=== PATIENT | female | born 1960 | race Caucasian/White ===

== ENCOUNTER 2016-10-03 21:00 | Emergency (ER) | payer BC ==
[~2016-10-03] VITALS: Ht 162.6 cm; Wt 54.4 kg
[~2016-10-03 21:00] MED LIST: ESTR1TAB15 PO; FENT1PAT15 TD; HYDR-2762 PO; HYDR-971 PO; IBUP-1060 PO; LIPA1CAP12 PO; LOSA25TA4 PO; Metoprolol PO; Norco PO; OMEP20TA PO; OMEP40CA5 PO; ONDA4TAB10 SL; ONDA4TAB7 PO; PANT40TA3 PO; Percocet PO; SENN8.6T3 PO; SUMA100T3 PO; TRAM-29 PO
[2016-10-03 21:22] VITALS: BP 122/87
--- NOTE | 2016-10-03 22:02 | PHYS DOC ---
Past Medical History Past Medical History: Anxiety, Depression, GERD, Migraines, Pneumonia Additional Past Medical Histor: aortic ANEURYSM Past Surgical History: Cholecystectomy, Hysterectomy Additional Past Surgical Histo: SHOULDER SX SINUS SX Alcohol Use: None Drug Use: None Adult General Chief Complaint Chief Complaint: HEADACHE HPI HPI Patient is a 56 year old female who presents with headache for 3 days. Patient states that she has had history of migraines, however she started getting a typical symptoms for her headache yesterday. Patient states that she is having pain towards the back of her neck which radiates across the back of her head towards her forehead. Patient states that the pain is in a bandlike pattern across her head. Patient has had associated nausea and mild dizziness. Patient denies any weakness, fever, vomiting, or vision loss. The patient was seen in urgent care and received a dose of Toradol and Phenergan with no improvement in symptoms. The patient rates her pain as 10 out of 10. Review of Systems Review of Systems Constitutional: Denies fever or chills [] Eyes: Denies change in visual acuity, redness, or eye pain [] HENT: Denies nasal congestion or sore throat [] Respiratory: Denies cough or shortness of breath [] Cardiovascular: No additional information not addressed in HPI [] GI: Denies abdominal pain, nausea, vomiting, bloody stools or diarrhea [] : Denies dysuria or hematuria [] Musculoskeletal: Denies back pain or joint pain [] Integument: Denies rash or skin lesions [] Neurologic: Headache, denies focal weakness or sensory changes [] Endocrine: Denies polyuria or polydipsia [] Current Medications Current Medications Current Medications Medications (Trade) Dose Ordered Sig/Chad Start Time Stop Time Status Last Admin Dose Admin Acetaminophen (Tylenol) 650 mg 1X ONCE 10/03/16 22:15 10/03/16 22:16 DC 10/03/16 22:55 650 MG Naproxen (Naprosyn) 500 mg 1X ONCE 10/03/16 22:15 10/03/16 22:16 DC 10/03/16 22:56 500 MG Orphenadrine Citrate (Norflex) 60 mg 1X ONCE 10/03/16 22:15 10/03/16 22:16 DC 10/03/16 22:56 60 MG Allergies Allergies Allergies Coded Allergies Type Severity Reaction Last Updated Verified No Known Drug Allergies 10/01/13 No Physical Exam Physical Exam Constitutional: Alert, afebrile, appears in mild to moderate discomfort. [] HENT: Normocephalic, atraumatic, bilateral external ears normal, oropharynx moist, no oral exudates, nose normal. [] Eyes: PERRLA, EOMI, no photophobia, conjunctiva normal, no discharge. [] Neck: Normal range of motion, bilateral paraspinous muscle tenderness to palpation with palpable spasm, no midline tenderness, supple, no stridor. [] Cardiovascular:Heart rate regular rhythm, no murmur [] Lungs & Thorax: Bilateral breath sounds clear to auscultation [] Abdomen: Bowel sounds normal, soft, no tenderness, no masses, no pulsatile masses. [] Skin: Warm, dry, no erythema, no rash. [] Back: No tenderness, no CVA tenderness. [] Extremities: No tenderness, no cyanosis, no clubbing, ROM intact, no edema. [] Neurologic: Alert and oriented X 3, normal motor function, normal sensory function, no focal deficits noted. [] Current Patient Data Vital Signs Vital Signs Date Time Temp Pulse Resp B/P Pulse Ox O2 Delivery O2 Flow Rate FiO2 10/03/16 21:22 98.1 99 18 122/87 100 Room Air 98.1 EKG EKG Not performed [] Radiology/Procedures Radiology/Procedures Not performed [] Course & Med Decision Making Course & Med Decision Making Pertinent Labs and Imaging studies reviewed. (See chart for details) The patient was given [place], Norflex, and Naprosyn in the emergency department. On reevaluation patient's symptoms have improved at this time. The patient will be discharged on [place], Flexeril, and Naprosyn for continued treatment of tension-type headache. Advised follow-up in 2-3 days a primary doctor and return to emergency department for any worsening symptoms. Patient voiced understanding and in agreement with treatment plan. Dragon Disclaimer Dragon Disclaimer This electronic medical record was generated, in whole or in part, using a voice recognition dictation system. Departure Departure Impression: Primary Impression: Tension type headache Disposition: HOME, SELF-CARE Condition: IMPROVED Referrals: OSVALDO CHOUDHURY MD (PCP) Patient Instructions: Tension Headache Additional Instructions: Follow-up with your primary doctor in 2-3 days. Return to the emergency department for any worsening symptoms. Scripts Cyclobenzaprine Hcl 10 Mg Tablet1 Tab PO QHS PRN MUSCLE SPASMS #10 TAB Prov:AUGUST HACKETT MD 10/03/16 Naproxen (Naprosyn)500 Mg Tablet1 Tab PO BID #20 TAB Ref 0 Prov:AUGUST HACKETT MD 10/03/16 Hydrocodone/Apap 5-325 ([place] 5-325 Tablet)1 Each Tablet1 Tab PO Q4-6HRS PRN PAIN #20 TAB Prov:AUGUST HACKETT MD 10/03/16 Problem Qualifiers Primary Impression: Tension type headache Headache chronicity pattern: acute headache Intractability: not intractable Qualified Code: G44.209 - Tension-type headache, unspecified, not intractable AUGUST HACKETT MD Oct 03, 2016 22:02
[2016-10-03] MEDS ORDERED: ACETAMINOPHEN 325 MG TABLET. PO ONE (22:15)
[2016-10-03] MEDS ORDERED: ORPHENADRINE CITRATE 60 MG/2 ML VIAL. IM ONE (22:15)
[2016-10-03] MEDS ORDERED: NAPROXEN 500 MG TABLET PO ONE (22:15)
[2016-10-03] MEDS ORDERED: CYCL10TA2 PO (23:21)
[2016-10-03] MEDS ORDERED: NAPR500T PO (23:21)
[2016-10-03] MEDS ORDERED: HYDR-971 PO (23:21)
[2016-10-03] MEDS ORDERED: HYDROCODONE/APAP 7.5/325MG TABLET. PO ONE (23:45)
== END 2016-10-03 23:36 | disposition home or self-care (01) ==
LOC: ER 21:00
DX: G44.209 Tension-type headache, unspecified, not intractable (principal); R42 Dizziness and giddiness; G43.909 Migraine, unspecified, not intractable, without status migrainosus; F41.9 Anxiety disorder, unspecified; F32.9 Major depressive disorder, single episode, unspecified; K21.9 Gastro-esophageal reflux disease without esophagitis; Z87.01 Personal history of pneumonia (recurrent); Z90.49 Acquired absence of other specified parts of digestive tract; Z90.710 Acquired absence of both cervix and uterus
CPT/HCPCS: 96372; 99284; J2360

== ENCOUNTER 2016-11-06 15:02 | Emergency (ER) | payer BC ==
[~2016-11-06] VITALS: Ht 162.6 cm; Wt 54.4 kg
[~2016-11-06 15:02] MED LIST changes: +CYCL10TA2 PO; +NAPR500T PO
[2016-11-06] MEDS ORDERED: DIPHENHYDRAMINE 50 MG/ML VIAL IVP ONE (16:15)
[2016-11-06] MEDS ORDERED: IV NORMAL SALINE 1000ML BAG 1,000 ML IV ONE (16:15)
[2016-11-06] MEDS ORDERED: METOCLOPRAMIDE HCL 10 MG/2 ML VIAL. IV ONE (16:15)
[2016-11-06] MEDS ORDERED: KETOROLAC TROMETHAMINE 30 MG/ML SYRINGE. IV ONE (16:15)
[2016-11-06] MEDS ORDERED: BUTA1CAP29 PO (16:55)
--- NOTE | 2016-11-06 16:55 | PHYS DOC ---
Past Medical History Past Medical History: Anxiety, Depression, GERD, Migraines, Pneumonia Additional Past Medical Histor: aortic ANEURYSM Past Surgical History: Cholecystectomy, Hysterectomy Additional Past Surgical Histo: SHOULDER SX SINUS SX Alcohol Use: None Drug Use: None Adult General Chief Complaint Chief Complaint: HEADACHE HPI HPI 56-year-old female with long history of migraine headaches presents with 2 day history of severe headache. She's taken all of her normal prescribed medications for her migraine but this has not helped. She denies any lateralizing neurologic weakness. She has had some nausea but no vomiting. She has had photophobia and phonophobia. She states the pain is very typical of previous migraine headache. She denies any fever or neck pain. [] Review of Systems Review of Systems Constitutional: Denies fever or chills [] Eyes: Denies change in visual acuity, redness, or eye pain [] HENT: Denies nasal congestion or sore throat [] Respiratory: Denies cough or shortness of breath [] Cardiovascular: No additional information not addressed in HPI [] GI: Denies abdominal pain, nausea, vomiting, bloody stools or diarrhea [] : Denies dysuria or hematuria [] Musculoskeletal: Denies back pain or joint pain [] Integument: Denies rash or skin lesions [] Neurologic: Per history of present illness [] Endocrine: Denies polyuria or polydipsia [] Current Medications Current Medications Current Medications Medications (Trade) Dose Ordered Sig/Chad Start Time Stop Time Status Last Admin Dose Admin Diphenhydramine HCl (Benadryl) 25 mg 1X ONCE 11/06/16 16:15 11/06/16 16:16 DC 11/06/16 16:34 25 MG Ketorolac Tromethamine (Toradol) 30 mg 1X ONCE 11/06/16 16:15 11/06/16 16:16 DC 11/06/16 16:35 30 MG Metoclopramide HCl (Reglan) 10 mg 1X ONCE 11/06/16 16:15 11/06/16 16:16 DC 11/06/16 16:32 10 MG Sodium Chloride (Iv Sodium Chloride 0.9% 1000ml Bag) 1,000 ml @ 1,000 mls/hr 1X ONCE 11/06/16 16:15 11/06/16 17:14 11/06/16 16:31 1,000 MLS/HR Allergies Allergies Allergies Coded Allergies Type Severity Reaction Last Updated Verified No Known Drug Allergies 10/01/13 No Physical Exam Physical Exam Constitutional: Well developed, well nourished, no acute distress, non-toxic appearance. [] HENT: Normocephalic, atraumatic, bilateral external ears normal, oropharynx moist, no oral exudates, nose normal. [] Eyes: PERRLA, EOMI, conjunctiva normal, no discharge. [] Neck: Normal range of motion, no tenderness, supple, no stridor. [] Cardiovascular:Heart rate regular rhythm, no murmur [] Lungs & Thorax: Bilateral breath sounds clear to auscultation [] Abdomen: Bowel sounds normal, soft, no tenderness, no masses, no pulsatile masses. [] Skin: Warm, dry, no erythema, no rash. [] Back: No tenderness, no CVA tenderness. [] Extremities: No tenderness, no cyanosis, no clubbing, ROM intact, no edema. [] Neurologic: Alert and oriented X 3, normal motor function, normal sensory function, no focal deficits noted. [] Psychologic: Affect normal, judgement normal, mood normal. [] Current Patient Data Vital Signs Vital Signs Date Time Temp Pulse Resp B/P Pulse Ox O2 Delivery O2 Flow Rate FiO2 11/06/16 15:34 98 80 18 133/88 100 Room Air 98.0 EKG EKG [] Radiology/Procedures Radiology/Procedures [] Course & Med Decision Making Course & Med Decision Making Pertinent Labs and Imaging studies reviewed. (See chart for details) [ED course: Evaluation reveals a 56-year-old female with typical migraine type symptoms. She was given 1 L of normal saline, Reglan 10 mg IV, Benadryl 25 mg IV and Toradol 30 mg IV with complete resolution of her symptoms. Patient states she feels better and wants to go home.] Dragon Disclaimer Dragon Disclaimer This electronic medical record was generated, in whole or in part, using a voice recognition dictation system. Departure Departure Impression: Primary Impression: Migraine headache Disposition: HOME, SELF-CARE Condition: IMPROVED Referrals: OSVALDO CHOUDHURY MD (PCP) Patient Instructions: Migraine Headache Additional Instructions: Thank you for allowing us to participate in your care today. Followup with your primary care physician in 3 days if your symptoms do not improve. Return to the emergency department you have any new or concerning findings. This should be evaluated by the primary care physician and any necessary consulting services for continued management within a few days after discharge. Return to emergency room if you have any new or concerning symptoms including but not limited to fever, chills, nausea, vomiting, intractable pain, any new rashes, chest pain, shortness of air, uncontrolled bleeding, difficulty breathing, and/or vision loss. You may have been prescribed medication that can change in your level of thinking and ability to operate machinery. These medications include hydrocodone and Ativan. Also, Benadryl has been known to do this as well. Be sure to check with your pharmacist and ask if the medications you've prescribed can affect your level of consciousness. I recommend not operating heavy machinery or driving while on medication such as these. Scripts Butalb/Acetaminophen/Caffeine (Fioricet 50-300-40 Mg Capsule)1 Each Capsule1 Each PO PRN Q4HRS PRN MIGRAINE HEADACHE #30 CAP Prov:BERHANE CARLISLE DO 11/06/16 Problem Qualifiers Primary Impression: Migraine headache Migraine type: unspecified Status migrainosus presence: without status migrainosus Intractability: not intractable Qualified Code: G43.909 - Migraine, unspecified, not intractable, without status migrainosus BERHANE CARLISLE DO Nov 06, 2016 16:55
[2016-11-06 17:07] VITALS: BP 125/80
== END 2016-11-06 17:35 | disposition home or self-care (01) ==
LOC: ER 15:02
DX: G43.909 Migraine, unspecified, not intractable, without status migrainosus (principal); F32.9 Major depressive disorder, single episode, unspecified; F41.9 Anxiety disorder, unspecified; K21.9 Gastro-esophageal reflux disease without esophagitis; Z90.710 Acquired absence of both cervix and uterus; Z90.49 Acquired absence of other specified parts of digestive tract
CPT/HCPCS: 96361; 96374; 96375; 99284; J1200; J1885; J2765; J7030

== ENCOUNTER 2016-11-12 02:09 | Emergency (ER) | payer BC ==
[~2016-11-12] VITALS: Ht 162.6 cm; Wt 54.4 kg
[~2016-11-12 02:09] MED LIST changes: +BUTA1CAP29 PO
[2016-11-12 03:17] LABS: BASO # 0.2 x10^3/uL (0.0-0.2); BASO % 2 % (0-3); EOS % 2 % (0-3); HEMATOCRIT 33.6 % (36.0-47.0); HEMOGLOBIN 10.9 g/dL (12.0-15.5); LYMPH # 3.3 x10^3/uL (1.0-4.8); LYMPH % 31 % (24-48); MEAN CORPUSCULAR HEMOGLOBIN 30 pg (25-35); MEAN CORPUSCULAR HGB CONC 32 g/dL (31-37); MEAN CORPUSCULAR VOLUME 93 fL (79-100); MONO % 6 % (0-9); NEUT % 60 % (31-73); PLATELET COUNT 269 x10^3/uL (140-400); RED CELL DISTRIBUTION WIDTH 14.9 % (11.5-14.5); WHITE BLOOD COUNT 10.9 x10^3/uL (4.0-11.0)
[2016-11-12 03:27] LABS: CALCIUM 9.3 mg/dL (8.5-10.1); CREATININE 1.2 mg/dL (0.6-1.0); GFR 46.5; POTASSIUM 3.8 mmol/L (3.5-5.1)
[2016-11-12] MEDS ORDERED: ONDANSETRON PF 4 MG/2 ML VIAL. IV ONE (03:30)
[2016-11-12] MEDS ORDERED: FENTANYL PF 100 MCG/2 ML VIAL. IV ONE ×2 (03:30→05:15)
[2016-11-12 03:33] LABS: ALBUMIN 3.1 g/dL (3.4-5.0); ALK PHOS 95 U/L (46-116); ALT (SGPT) 13 U/L (14-59); AST (SGOT) 14 U/L (15-37); DIRECT BILIRUBIN < 0.1 mg/dL (0.0-0.2); TOTAL BILIRUBIN 0.3 mg/dL (0.2-1.0); TOTAL PROTEIN 7.1 g/dL (6.4-8.2)
[2016-11-12] MEDS ORDERED: IBUP-1060 PO (04:44)
--- NOTE | 2016-11-12 04:44 | PHYS DOC ---
Past Medical History Past Medical History: Anxiety, Depression, GERD, Migraines, Pneumonia Additional Past Medical Histor: aortic ANEURYSM Past Surgical History: Cholecystectomy, Hysterectomy Additional Past Surgical Histo: SHOULDER SX SINUS SX Alcohol Use: None Drug Use: None Adult General Chief Complaint Chief Complaint: SHORTNESS OF BREATH [facility] HPI 56-year-old female who's having ongoing sinus congestion as well as some chest wall tenderness with deep breathing for the last several days. Patient states she's had similar symptoms with a previous episode of pneumonia. She has any fever or chills. She denies any significant cough with her symptoms. She does states she has history of a thoracic aortic aneurysm that is being followed. She denies any history of cardiac disease. She rates her pain a 7 out of 10 localized in a generalized pattern throughout her chest. Review of Systems Review of Systems Constitutional: Denies fever or chills [] Eyes: Denies change in visual acuity, redness, or eye pain [] HENT: Denies nasal congestion or sore throat [] Respiratory: Denies cough or shortness of breath [] Cardiovascular: No additional information not addressed in HPI [] GI: Denies abdominal pain, nausea, vomiting, bloody stools or diarrhea [] : Denies dysuria or hematuria [] Musculoskeletal: Denies back pain or joint pain [] Integument: Denies rash or skin lesions [] Neurologic: Denies headache, focal weakness or sensory changes [] Endocrine: Denies polyuria or polydipsia [] Current Medications Current Medications Current Medications Medications (Trade) Dose Ordered Sig/[facility] Start Time Stop Time Status Last Admin Dose Admin Fentanyl Citrate (Fentanyl 2ml Vial) 50 mcg 1X ONCE 11/12/16 05:15 11/12/16 05:16 DC 11/12/16 05:00 50 MCG Ondansetron HCl (Zofran) 4 mg 1X ONCE 11/12/16 03:30 11/12/16 03:31 DC 11/12/16 03:36 4 MG Allergies Allergies Allergies Coded Allergies Type Severity Reaction Last Updated Verified No Known Drug Allergies 10/01/13 No Physical Exam Physical Exam Constitutional: Well developed, well nourished, no acute distress, non-toxic appearance. [] HENT: Normocephalic, atraumatic, bilateral external ears normal, oropharynx moist, no oral exudates, nose normal. [] Eyes: PERRLA, EOMI, conjunctiva normal, no discharge. [] Neck: Normal range of motion, no tenderness, supple, no stridor. [] Cardiovascular:Heart rate regular rhythm, no murmur [] Lungs & Thorax: Bilateral breath sounds clear to auscultation [] Abdomen: Bowel sounds normal, soft, no tenderness, no masses, no pulsatile masses. [] Skin: Warm, dry, no erythema, no rash. [] Back: No tenderness, no CVA tenderness. [] Extremities: No tenderness, no cyanosis, no clubbing, ROM intact, no edema. [] Neurologic: Alert and oriented X 3, normal motor function, normal sensory function, no focal deficits noted. [] Psychologic: Affect normal, judgement normal, mood normal. [] Current Patient Data Vital Signs Vital Signs Date Time Temp Pulse Resp B/P Pulse Ox O2 Delivery O2 Flow Rate FiO2 11/12/16 05:01 68 16 117/54 100 Room Air 11/12/16 02:45 98.3 98.3 Lab Values Laboratory Tests Test 11/12/16 03:00 White Blood Count 10.9x10^3/uL (4.0-11.0) Red Blood Count 3.60x10^6/uL (3.50-5.40) Hemoglobin 10.9g/dL (12.0-15.5) L Hematocrit 33.6% (36.0-47.0) L Mean Corpuscular Volume 93fL (79-100) Mean Corpuscular Hemoglobin 30pg (25-35) Mean Corpuscular Hemoglobin Concent 32g/dL (31-37) Red Cell Distribution Width 14.9% (11.5-14.5) H Platelet Count 269x10^3/uL (140-400) Neutrophils (%) (Auto) 60% (31-73) Lymphocytes (%) (Auto) 31% (24-48) Monocytes (%) (Auto) 6% (0-9) Eosinophils (%) (Auto) 2% (0-3) Basophils (%) (Auto) 2% (0-3) Neutrophils # (Auto) 6.5x10^3uL (1.8-7.7) Lymphocytes # (Auto) 3.3x10^3/uL (1.0-4.8) Monocytes # (Auto) 0.7x10^3/uL (0.0-1.1) Eosinophils # (Auto) 0.2x10^3/uL (0.0-0.7) Basophils # (Auto) 0.2x10^3/uL (0.0-0.2) D-Dimer (Josseline) 0.33ug/mlFEU (0.00-0.50) Sodium Level 141mmol/L (136-145) Potassium Level 3.8mmol/L (3.5-5.1) Chloride Level 104mmol/L (98-107) Carbon Dioxide Level 26mmol/L (21-32) Anion Gap 11 (6-14) Blood Urea Nitrogen 18mg/dL (7-20) Creatinine 1.2mg/dL (0.6-1.0) H Estimated GFR (Cockcroft-Gault) 46.5 Glucose Level 89mg/dL (70-99) Calcium Level 9.3mg/dL (8.5-10.1) Total Bilirubin 0.3mg/dL (0.2-1.0) Direct Bilirubin < 0.1mg/dL (0.0-0.2) Aspartate Amino Transferase (AST) 14U/L (15-37) L Alanine Aminotransferase (ALT) 13U/L (14-59) L Alkaline Phosphatase 95U/L (46-116) Troponin I Quantitative < 0.017ng/mL (0.000-0.055) Total Protein 7.1g/dL (6.4-8.2) Albumin 3.1g/dL (3.4-5.0) L Lipase 247U/L (73-393) Laboratory Tests 11/12/16 03:00 Laboratory Tests 11/12/16 03:00 EKG EKG EKG is interpreted by me shows a sinus rhythm with a rate of 70 beats per minutes. There are no acute ST findings seen. Intervals are normal. This EKG does not meet STEMI criteria. Radiology/Procedures Radiology/Procedures []EXAM: Chest, single view. HISTORY: Shortness of breath. COMPARISON: 12/31/2015. FINDINGS: A frontal view of the chest is obtained. There is hyperinflation likely due to inspiratory effort or emphysema. There is no consolidation, effusion or pneumothorax. The heart is normal in size. IMPRESSION: No acute pulmonary finding. Course & Med Decision Making Course & Med Decision Making Pertinent Labs and Imaging studies reviewed. (See chart for details) 56-year-old female had a laboratory workup that was unremarkable including an EKG and chest x-ray. D-dimer and troponin were negative. I counseled the patient at length that she is likely having chest congestion with a respiratory illness is likely viral in etiology. A prescription for Motrin was provided. I counseled her to follow closely with her primary care doctor and she was discharged without incident. Dragon Disclaimer Dragon Disclaimer This electronic medical record was generated, in whole or in part, using a voice recognition dictation system. Departure Departure Impression: Primary Impression: Bronchitis Additional Impression: Costochondritis Disposition: HOME, SELF-CARE Admitting Physician: Other Condition: STABLE Referrals: OSVALDO CHOUDHURY MD (PCP) Patient Instructions: Costochondritis, [id number] Additional Instructions: Please take anti-inflammatories for your chest wall pain and continue to drink plenty of fluids. Avoid any strenuous activities. Follow closely with your primary doctor in the next several days for your symptoms. Return to the ER if you develop any worsening of your symptoms. Scripts Ibuprofen 800 Mg [id number] Mg PO PRN Q6HRS PRN INFLAMMATION #20 TAB Prov:JOSE CARMONA DO 11/12/16 Problem Qualifiers JOSE CARMONA DO Nov 12, 2016 04:44
[2016-11-12 05:01] VITALS: BP 117/54
--- NOTE | 2016-11-12 07:10 | EKG ---
[facility] [address] [place] [address] Test Date: 2016-11-12 Test Time: 02:50:51 Pat Name: PHAM SONG Department: Room: Gender: F Return To Vendor: : [id number] Requested By: JOSE CARMONA Order Number: [id number] Reading MD: Oksana Monae Measurements Intervals [place] Rate: 70 P: 56 CA: 172 QRS: 62 QRSD: 80 T: 66 QT: 396 QTc: 430 Interpretive Statements SINUS RHYTHM QRS(T) CONTOUR ABNORMALITY CONSIDER ANTEROSEPTAL MYOCARDIAL DAMAGE POSSIBLY ABNORMAL ECG RI6.01 Compared to ECG 07/09/2016 23:32:03 No significant changes Electronically Signed On 11-12-2016 19:26:28 CDT by Oksana Monae
--- NOTE | 2016-11-12 07:48 | RAD ---
EXAM: Chest, single view. HISTORY: Shortness of breath. COMPARISON: 12/31/2015. FINDINGS: A frontal view of the chest is obtained. There is hyperinflation likely due to inspiratory effort or emphysema. There is no consolidation, effusion or pneumothorax. The heart is normal in size. IMPRESSION: No acute pulmonary finding.
== END 2016-11-12 05:20 | disposition home or self-care (01) ==
LOC: ER 02:09
DX: J40 Bronchitis, not specified as acute or chronic (principal); M94.0 Chondrocostal junction syndrome [Tietze]; I71.2 Thoracic aortic aneurysm, without rupture; F41.9 Anxiety disorder, unspecified; F32.9 Major depressive disorder, single episode, unspecified; K21.9 Gastro-esophageal reflux disease without esophagitis; G43.909 Migraine, unspecified, not intractable, without status migrainosus; Z87.01 Personal history of pneumonia (recurrent)
CPT/HCPCS: 36415; 71010; 80048; 80076; 83690; 84484; 85027; 85379; 93005; 96374; 96375; 96376; 99285; J2405; J3010

== ENCOUNTER 2016-11-29 14:40 | Emergency (ER) | payer BC ==
[~2016-11-29] VITALS: Ht 162.6 cm; Wt 54.4 kg
[2016-11-29] MEDS ORDERED: METOCLOPRAMIDE HCL 10 MG/2 ML VIAL. IV ONE ×2 (15:45→17:00)
[2016-11-29] MEDS ORDERED: DIPHENHYDRAMINE 50 MG/ML VIAL. IV ONE (15:45)
[2016-11-29] MEDS ORDERED: IV NORMAL SALINE 1000ML BAG 1,000 ML IV ONE (15:45)
--- NOTE | 2016-11-29 16:22 | PHYS DOC ---
Past Medical History Past Medical History: Anxiety, Depression, GERD, Migraines, Pneumonia Additional Past Medical Histor: aortic ANEURYSM, migraines Past Surgical History: Cholecystectomy, Hysterectomy Additional Past Surgical Histo: SHOULDER SX SINUS SX Alcohol Use: Rarely Drug Use: None Adult General Chief Complaint Chief Complaint: HEADACHE HPI HPI 56-year-old female presenting to the emergency department today with a headache. She does have a history of migraine headaches and report this headache is similar. She denies it as being sudden in onset. She denies family history of brain aneurysms. She does report a history of aortic aneurysm. She denies a history of roslyn danlos syndrome or any of the inherited vascular diseases. She denies vision changes numbness or weakness. Her headache is moderate radiating down to the jaw intermittent and without alleviating factors. Review of systems is negative for chest pain shortness of breath fevers chills. All other review of systems is negative unless otherwise noted in history of present illness. Review of Systems Review of Systems SEE ABOVE. Current Medications Current Medications Current Medications Medications (Trade) Dose Ordered Sig/Chad Start Time Stop Time Status Last Admin Dose Admin Dexamethasone Sodium Phosphate (Decadron) 10 mg 1X ONCE 11/29/16 17:00 11/29/16 17:01 DC 11/29/16 17:16 10 MG Diphenhydramine HCl (Benadryl) 50 mg 1X ONCE 11/29/16 17:00 11/29/16 17:01 DC 11/29/16 17:16 50 MG Diphenhydramine HCl 50 mg 50 mg 1X ONCE 11/29/16 15:45 11/29/16 15:46 DC 11/29/16 15:59 50 MG Ketorolac Tromethamine (Toradol) 15 mg 1X ONCE 11/29/16 17:00 11/29/16 17:01 DC 11/29/16 17:17 15 MG Metoclopramide HCl (Reglan) 20 mg 1X ONCE 11/29/16 17:00 11/29/16 17:01 DC 11/29/16 17:17 20 MG Sodium Chloride (Iv Sodium Chloride 0.9% 1000ml Bag) 1,000 ml @ 1,000 mls/hr 1X ONCE 11/29/16 15:45 11/29/16 16:44 DC 11/29/16 16:00 1,000 MLS/HR Allergies Allergies Allergies Coded Allergies Type Severity Reaction Last Updated Verified No Known Drug Allergies 10/01/13 No Physical Exam Physical Exam Constitutional: Well developed, well nourished, no acute distress, non-toxic appearance. HENT: Normocephalic, atraumatic, bilateral external ears normal, oropharynx moist, no oral exudates, nose normal. [] Eyes: PERRLA, EOMI, conjunctiva normal, no discharge. [] Neck: Normal range of motion, no tenderness, supple, no stridor. Cardiovascular:Heart rate regular rhythm, no murmur [] Lungs & Thorax: Bilateral breath sounds clear to auscultation [] Abdomen: Bowel sounds normal, soft, no tenderness, no masses, no pulsatile masses. Skin: Warm, dry, no erythema, no rash. [] Back: No tenderness, no CVA tenderness. [] Extremities: No tenderness, no cyanosis, no clubbing, ROM intact, no edema. [] Neurologic: Mental status: Awake oriented and alert x3 Cranial nerves: Extraocular movements intact, eyebrows akosua bilaterally smile symmetric, uvula elevation, shoulder shrug intact, tongue protrusion normal Sensation: equal and normal in all extremities Strength: 5/5 in upper and lower extremities bilaterally Psychologic: Affect normal, judgement normal, mood normal. Current Patient Data Vital Signs Vital Signs Date Time Temp Pulse Resp B/P Pulse Ox O2 Delivery O2 Flow Rate FiO2 11/29/16 16:35 84 16 140/89 99 Room Air 11/29/16 14:48 97.5 97.5 EKG EKG [] Radiology/Procedures Radiology/Procedures [] Course & Med Decision Making Course & Med Decision Making Pertinent Labs and Imaging studies reviewed. (See chart for details) [] 56-year-old female presenting to the emergency department today with headache similar to her previous migraines. Vital signs unremarkable. Physical exam showed a normal neurologic exam. The patient's pain/headache was treated in the emergency department with Reglan and Benadryl, decadron, and IV fluids. On reexamination she reported feeling better. She does exhibit some signs of opioid abuse syndrome. Naming medications, going to multiple emergency departments, I investigated the [place] board of pharmacy records at which the patient has received 39 prescriptions from 33 different. Providers at 8 different pharmacies mostly private pay which is also concerning. At this point , I do not feel comfortable prescribing opioid medications this patient. I feel the patient is more likely to be harmed been helped by these medications. She was subsequent discharged home to follow up with her PCP over the next 2-3 days. Dragon Disclaimer Dragon Disclaimer This electronic medical record was generated, in whole or in part, using a voice recognition dictation system. Departure Departure Impression: Primary Impression: HEADACHE Additional Impressions: Drug-seeking behavior Opioid abuse Opioid abuse, unspecified Disposition: HOME, SELF-CARE Condition: STABLE Referrals: OSVALDO CHOUDHURY MD (PCP) Patient Instructions: General Headache Without Cause Additional Instructions: Thank you for allowing us to participate in your care today. Followup with your primary care physician in 3 days if your symptoms do not improve. If you do not have a primary care provider you can ask for a list of our primary care providers. Return to the emergency department you have any new or concerning findings. This should be evaluated by the primary care physician and any necessary consulting services for continued management within a few days after discharge. Return to emergency room if you have any new or concerning symptoms including but not limited to fever, chills, nausea, vomiting, intractable pain, any new rashes, chest pain, shortness of air, uncontrolled bleeding, difficulty breathing, and/or vision loss. Problem Qualifiers BROWN GAN MD Nov 29, 2016 16:22
[2016-11-29] MEDS ORDERED: DIPHENHYDRAMINE 50 MG/ML VIAL. IVP ONE (17:00)
[2016-11-29] MEDS ORDERED: KETOROLAC 15 MG/ML VIAL. IV ONE (17:00)
[2016-11-29] MEDS ORDERED: DEXAMETHASONE SOD PHOS 20 MG/5 ML VIAL. IV ONE (17:00)
[2016-11-29 17:20] VITALS: BP 135/85
== END 2016-11-29 17:47 | disposition home or self-care (01) ==
LOC: ER 14:40
DX: R51 Headache (principal); G43.909 Migraine, unspecified, not intractable, without status migrainosus; F32.9 Major depressive disorder, single episode, unspecified; F41.9 Anxiety disorder, unspecified; F11.10 Opioid abuse, uncomplicated; Z76.5 Malingerer [conscious simulation]; K21.9 Gastro-esophageal reflux disease without esophagitis
CPT/HCPCS: 96361; 96374; 96375; 96376; 99284; J1100; J1200; J1885; J2765; J7030; 99285-25

== ENCOUNTER 2017-01-09 09:00 | Observation (INO) | payer BC ==
[~2017-01-09] VITALS: Ht 162.6 cm; Wt 52.3 kg
[~2017-01-09 09:00] MED LIST changes: -IOHEXOL 300 MG/ML 100ML VIAL. IV ONE
--- NOTE | 2017-01-09 09:08 | PHYS DOC ---
Past Medical History Past Medical History: Anxiety, Depression, GERD, Migraines, Pneumonia Additional Past Medical Histor: aortic ANEURYSM, migraines Past Surgical History: Cholecystectomy, Hysterectomy Additional Past Surgical Histo: SHOULDER SX SINUS SX Alcohol Use: Rarely Drug Use: None Adult General Chief Complaint Chief Complaint: ABDOMINAL PAIN HPI HPI Patient is a 56 year old female who presents with is a right lower quadrant pain. She states it started closer to her bellybutton and is migrated down the right lower quadrant. She states Advil has been helping it however now nothing is making it better or worse. She did have a hard stool yesterday but otherwise denies any issues with constipation or dysuria. She does have a CT scan of her chest with contrast prior to arrival in the emergency department. She states she has a history of aortic aneurysm that she is getting followed. States she has a history of pancreatitis and allotted only thing that works for her pain. Review of Systems Review of Systems Constitutional: Denies fever or chills [] Eyes: Denies change in visual acuity, redness, or eye pain [] HENT: Denies nasal congestion or sore throat [] Respiratory: Denies cough or shortness of breath [] Cardiovascular: No additional information not addressed in HPI [] GI: Positive for abdominal pain, denies any nausea, vomiting, bloody stools or diarrhea [] : Denies dysuria or hematuria [] Musculoskeletal: Denies back pain or joint pain [] Integument: Denies rash or skin lesions [] Neurologic: Denies headache, focal weakness or sensory changes [] Endocrine: Denies polyuria or polydipsia [] Current Medications Current Medications Current Medications Medications (Trade) Dose Ordered Sig/Chad Start Time Stop Time Status Last Admin Dose Admin Hydromorphone HCl (Dilaudid) 0.5 mg PRN Q15MIN PRN 01/09/17 09:30 01/09/17 12:49 DC 01/09/17 09:29 0.5 MG Info (Do NOT chart on this entry -- for MONITORING) 1 each PRN DAILY PRN 01/09/17 09:45 01/11/17 09:44 Iohexol (Omnipaque 240 Mg/ml) 30 ml 1X ONCE 01/09/17 09:45 01/09/17 09:46 DC 01/09/17 10:44 30 ML Ondansetron HCl (Zofran) 4 mg 1X ONCE 01/09/17 09:30 01/09/17 09:31 DC 01/09/17 09:28 4 MG Sodium Chloride 1,000 ml @ 1,000 mls/hr Q1H 01/09/17 09:30 01/09/17 10:29 DC 01/09/17 09:26 1,000 MLS/HR Allergies Allergies Allergies Coded Allergies Type Severity Reaction Last Updated Verified No Known Drug Allergies 01/09/17 No Physical Exam Physical Exam Constitutional: Well developed, well nourished, no acute distress, non-toxic appearance. [] HENT: Normocephalic, atraumatic, bilateral external ears normal, oropharynx moist, no oral exudates, nose normal. [] Eyes: PERRLA, EOMI, conjunctiva normal, no discharge. [] Neck: Normal range of motion, no tenderness, supple, no stridor. [] Cardiovascular:Heart rate regular rhythm, no murmur [] Lungs & Thorax: Bilateral breath sounds clear to auscultation [] Abdomen: High-pitched bowel sounds, soft, mild tenderness palpation right lower quadrant, no rebound or guarding, no masses, no pulsatile masses. [] Skin: Warm, dry, no erythema, no rash. [] Back: No tenderness, no CVA tenderness. [] Extremities: No tenderness, no cyanosis, no clubbing, ROM intact, no edema. [] Neurologic: Alert and oriented X 3, normal motor function, normal sensory function, no focal deficits noted. [] Psychologic: Affect normal, judgement normal, mood normal. [] Current Patient Data Vital Signs Vital Signs Date Time Temp Pulse Resp B/P (MAP) Pulse Ox O2 Delivery O2 Flow Rate FiO2 01/09/17 10:29 94 20 152/85 (107) 100 Room Air 01/09/17 09:13 97.5 97.5 Lab Values Laboratory Tests Test 01/09/17 09:15 01/09/17 09:18 Urine Collection Type Unknown Urine Color Yellow Urine Clarity Clear Urine pH 5.5 Urine Specific [place] <=1.005 Urine Protein Negative mg/dL (NEG-TRACE) Urine Glucose (UA) Negative mg/dL (NEG) Urine Ketones (Stick) Negative mg/dL (NEG) Urine Blood Trace (NEG) Urine Nitrite Negative (NEG) Urine Bilirubin Negative (NEG) Urine Urobilinogen Dipstick 0.2 mg/dL (0.2 mg/dL) Urine Leukocyte Esterase Negative (NEG) Urine RBC Rare /HPF (0-2) Urine WBC 0 /HPF (0-4) Urine Squamous Epithelial Cells Many /LPF Urine Bacteria 0 /HPF (0-FEW) Urine Hyaline Casts Moderate /HPF Urine Mucus Mod /LPF Urine Opiates Screen Pos (NEG) Urine Methadone Screen Neg (NEG) Urine Barbiturates Neg (NEG) Urine Phencyclidine Screen Neg (NEG) Urine Amphetamine/Methamphetamine Neg (NEG) Urine Benzodiazepines Screen Neg (NEG) Urine Cocaine Screen Neg (NEG) Urine Cannabinoids Screen Neg (NEG) Urine Ethyl Alcohol Neg (NEG) White Blood Count 8.1 x10^3/uL (4.0-11.0) Red Blood Count 4.25 x10^6/uL (3.50-5.40) Hemoglobin 12.8 g/dL (12.0-15.5) Hematocrit 38.3 % (36.0-47.0) Mean Corpuscular Volume 90 fL (79-100) Mean Corpuscular Hemoglobin 30 pg (25-35) Mean Corpuscular Hemoglobin Concent 34 g/dL (31-37) Red Cell Distribution Width 13.8 % (11.5-14.5) Platelet Count 336 x10^3/uL (140-400) Neutrophils (%) (Auto) 62 % (31-73) Lymphocytes (%) (Auto) 28 % (24-48) Monocytes (%) (Auto) 8 % (0-9) Eosinophils (%) (Auto) 3 % (0-3) Basophils (%) (Auto) 1 % (0-3) Neutrophils # (Auto) 5.0 x10^3uL (1.8-7.7) Lymphocytes # (Auto) 2.2 x10^3/uL (1.0-4.8) Monocytes # (Auto) 0.6 x10^3/uL (0.0-1.1) Eosinophils # (Auto) 0.2 x10^3/uL (0.0-0.7) Basophils # (Auto) 0.1 x10^3/uL (0.0-0.2) Prothrombin Time 13.4 SEC (11.7-14.0) Prothrombin Time INR 1.1 (0.8-1.1) PTT 29 SEC (24-38) Sodium Level 135 mmol/L (136-145) L Potassium Level 3.8 mmol/L (3.5-5.1) Chloride Level 101 mmol/L (98-107) Carbon Dioxide Level 22 mmol/L (21-32) Anion Gap 12 (6-14) Blood Urea Nitrogen 20 mg/dL (7-20) Creatinine 1.4 mg/dL (0.6-1.0) H Estimated GFR (Cockcroft-Gault) 38.9 Glucose Level 121 mg/dL (70-99) H Calcium Level 9.1 mg/dL (8.5-10.1) Total Bilirubin 0.3 mg/dL (0.2-1.0) Direct Bilirubin 0.1 mg/dL (0.0-0.2) Aspartate Amino Transferase (AST) 14 U/L (15-37) L Alanine Aminotransferase (ALT) 18 U/L (14-59) Alkaline Phosphatase 107 U/L (46-116) Creatine Kinase 30 U/L (26-192) Creatine Kinase MB (Mass) < 0.5 ng/mL (0.0-3.6) Creatine Kinase MB Relative Index % (0-4) Total Protein 7.6 g/dL (6.4-8.2) Albumin 3.3 g/dL (3.4-5.0) L Lipase 820 U/L (73-393) H Laboratory Tests 01/09/17 09:18 Laboratory Tests 01/09/17 09:18 EKG EKG [] Radiology/Procedures Radiology/Procedures [facility] [address] [place] [address] IMAGING REPORT Signed PATIENT: PHAM SONG ACCOUNT: [id number] : 1960 LOCATION: ER AGE: 56 SEX: F EXAM STATUS: REG ER ORD. PHYSICIAN: YAS MALLOY MD REASON: rlq pain PROCEDURE: CT ABD PEL W/ORAL CONTRST ONLY Indication right lower quadrant abdominal pain Axial images through the abdomen and pelvis were obtained. Oral contrast was administered. IV contrast was not. Note is made that the patient had a CT examination of the chest approximately 2 hours prior to this examination. The lung bases are clear. The liver and spleen appear unremarkable. Clips are noted in the gallbladder fossa. Residual contrast from the prior CT examination of the chest is noted in the kidneys, ureters and bladder. No significant renal anomalies are seen. There are probable subcentimeter cysts associated with the left kidney. The ureters appear unremarkable and the urinary bladder appears grossly normal. No adrenal pathology is seen and the pancreas appears unremarkable. The appendix is not definitely seen in the right lower quadrant but no secondary signs to suggest appendicitis are seen. Diverticular disease is noted associated with the large bowel predominantly in the sigmoid colon. Active inflammation is not seen. There are degenerative changes in the lumbar spine. There is slight anterolisthesis of L5 relative to S1. IMPRESSION: No acute finding seen in the abdomen or pelvis DICTATED and SIGNED BY: LINNETTE BLAKE MD DATE: 01/09/17 1105 CC: YAS MALLOY MD; INGRIS FAYE ~ Impressions: Abdominal pain Course & Med Decision Making Course & Med Decision Making Pertinent Labs and Imaging studies reviewed. (See chart for details) CT scan abdomen pelvis with by mouth contrast did not show any acute abnormalities. Her lipase is elevated. We'll admit for abdominal pain. Patient is in stable condition this time be admitted to Dr. Yeboah with interim orders being written. Dragon Disclaimer Dragon Disclaimer This electronic medical record was generated, in whole or in part, using a voice recognition dictation system. Departure Departure Impression: Primary Impression: Abdominal pain Disposition: ADMITTED INPATIENT Admitting Physician: Vilma Yeboah Condition: STABLE Referrals: INGRIS FAYE (PCP) Problem Qualifiers Primary Impression: Abdominal pain Abdominal location: generalized Qualified Codes: R10.84 - Generalized abdominal pain AYS MALLOY MD January 09, 2017 09:08
[2017-01-09] MEDS ORDERED: HYDROmorphone 2 MG/ML VIAL IV/SQ PRN (09:30)
[2017-01-09] MEDS ORDERED: IV NORMAL SALINE 1000ML BAG 1,000 ML IV SCH (09:30)
[2017-01-09] MEDS ORDERED: ONDANSETRON PF 4 MG/2 ML VIAL. IV ONE (09:30)
[2017-01-09 09:34] LABS: BASO # 0.1 x10^3/uL (0.0-0.2); BASO % 1 % (0-3); EOS % 3 % (0-3); HEMATOCRIT 38.3 % (36.0-47.0); HEMOGLOBIN 12.8 g/dL (12.0-15.5); LYMPH # 2.2 x10^3/uL (1.0-4.8); LYMPH % 28 % (24-48); MEAN CORPUSCULAR HEMOGLOBIN 30 pg (25-35); MEAN CORPUSCULAR HGB CONC 34 g/dL (31-37); MEAN CORPUSCULAR VOLUME 90 fL (79-100); MONO % 8 % (0-9); NEUT % 62 % (31-73); PLATELET COUNT 336 x10^3/uL (140-400); RED BLOOD COUNT 4.25 x10^6/uL (3.50-5.40); RED CELL DISTRIBUTION WIDTH 13.8 % (11.5-14.5); WHITE BLOOD COUNT 8.1 x10^3/uL (4.0-11.0)
[2017-01-09 09:45] LABS: INR 1.1 (0.8-1.1); PROTHROMBIN TIME PATIENT 13.4 SEC (11.7-14.0)
[2017-01-09] MEDS ORDERED: IOHEXOL 240 MG/ML 50ML VIAL. PO ONE (09:45)
[2017-01-09] MEDS ORDERED: CONTRAST GIVEN MC PRN (09:45)
[2017-01-09 09:50] LABS: CALCIUM 9.1 mg/dL (8.5-10.1); CREATININE 1.4 mg/dL (0.6-1.0); GFR 38.9; POTASSIUM 3.8 mmol/L (3.5-5.1)
[2017-01-09 09:54] LABS: ALBUMIN 3.3 g/dL (3.4-5.0); DIRECT BILIRUBIN 0.1 mg/dL (0.0-0.2); TOTAL BILIRUBIN 0.3 mg/dL (0.2-1.0); TOTAL PROTEIN 7.6 g/dL (6.4-8.2)
[2017-01-09 09:57] LABS: CKMB MASS < 0.5 ng/mL (0.0-3.6); CREATINE KINASE 30 U/L (26-192)
--- NOTE | 2017-01-09 10:05 | ACF ---
Admission Forms Criteria ABDOMINAL PAIN Clinical Indications for Admission to Inpatient Care (Place 'X' for any and all applicable criteria): Admission is indicated for ANY ONE of the following(1)(2)(3)(4)(5): [X]I. Inpatient admission required rather than observation care (Also use Abdominal Pain: Observation Care, as appropriate) because of ANY ONE of the following: [ ]a) Severe pain requiring acute inpatient management [X]b) Identification of etiology/finding that requires inpatient care (eg, aortic dissection, free air) [ ]c) Absent bowel sounds with complete ileus(6) [ ]d) Suspected toxic megacolon [ ]e) Severe electrolyte abnormalities requiring inpatient care [ ]f) High fever or infection requiring inpatient admission as indicated by ANY ONE of following(7)(8): [ ] i) Appropriate outpatient or observational care antimicrobial treatment unavailable, not effective, or not feasible [ ] ii) Documented bacteremia [ ] iii) Temperature > 104.9 degrees F (oral) [ ] iv) T >103.1 F (oral) or < 96.8 F(rectal) that does not respond to all emergency treatment measures [ ]g) Signs of intestinal obstruction [B] [ ]h) Hemodynamic instability [ ]i) IV fluid to replace significant ongoing losses (greater than 3 L/m2 per day) (12)(13) [ ]j) Percutaneous or open drainage (eg, abscess, biliary tract ) procedures [ ]k) Parenteral nutrition regimen that must be implemented on inpatient basis [ ]l) Other condition,treatment or monitoring requiring inpatient admission. [ ]II. Peritoneal signs present [ ]III. Surgery needed that cannot be performed on an ambulatory basis. [ ]IV. Evaluation requires patient to not eat or drink for extended period ( eg, more than 24 hours). [ ]V. Contraindications and/or Inappropriate clinical situations for Observational Care in patients with abdominal pain, when ANY ONE of the following is required: [ ]a) Thorough evaluation is required to prevent catastrophic events due to delays in diagnosing (e.g.Mesenteric ischemia) 1,3 [ ]b) Patient with severe pathology or with chronic symptoms unlikely to improve in the ED stay (3) [ ]. General contraindications and/or Inappropriate clinical situations for Observational Care in patients with abdominal pain, when ANY ONE of the following is required: [ ]a) Prediction of prolongation of LOS based on ANY ONE of the following may be considered as a contraindication for observational care 2, 3, 4, 5, 6, 7, 8, 9, 10, 11 [ ]i) Age > 65 yrs. [ ]ii) Patient arriving by ambulance [ ]iii) Patient with high acuity [ ]iv) Patient requiring vital sign monitoring [ ]v) Patient on IV medication [ ]b) Systolic blood pressures 180mmHg 3,12 [ ]c) Patient with altered mental status including delirium and other alteration of consciousness, (3) [ ]d) Patient whose discharge disposition will be to a senior living home or rehabilitation home should not be managed in Emergency Department Observation Unit. CMS rule requires 3 days hospital stay before such placement.3,13 [ ]e) Patient with failure to thrive due to broad array of etiologies 3,16,17 [ ]f) Inability to ambulate 3,14 Extended stay beyond goal length of stay may be needed for(2)(3): [ ]a) Persistent abdominal pain with suspected intra-abdominal process [ ]b) Diagnosed condition requiring continued stay (e.g., pancreatitis, complicated diverticulitis) [ ]c) Surgery (e.g., colectomy) The original [facility] content created by [employer] has been revised. The portions of the content which have been revised are identified through the use of italic text or in bold, and [facility] has neither reviewed nor approved the modified material.All other unmodified content is copyright [facility]. Please see references footnoted in the original [facility] edition 2016 Admission Criteria Met?: Yes FARNAZ MACDONALD January 09, 2017 10:05
[2017-01-09 10:18] LABS: BILIRUBIN,URINE NEGATIVE (NEG); GLUCOSE,URINE NEGATIVE (NEG); NITRITE,URINE NEGATIVE (NEG); PH,URINE 5.5; PROTEIN,URINE NEGATIVE (NEG-TRACE); RBC,URINE RARE /HPF (0-2); UROBILINOGEN,URINE 0.2 mg/dL (0.2 mg/dL); WBC,URINE 0 /HPF (0-4)
[2017-01-09 10:19] LABS: BACTERIA,URINE 0 /HPF (0-FEW); SQUAMOUS EPITHELIAL CELL,UR MANY /LPF
[2017-01-09 10:25] LABS: BARBITURATES NEG (NEG); BENZODIAZEPINES NEG (NEG); CANNABINOIDS NEG (NEG); COCAINE NEG (NEG); METHADONE NEG (NEG); OPIATES POS (NEG); PHENCYCLIDINE NEG (NEG)
--- NOTE | 2017-01-09 11:18 | RAD ---
Indication right lower quadrant abdominal pain Axial images through the abdomen and pelvis were obtained. Oral contrast was administered. IV contrast was not. Note is made that the patient had a CT examination of the chest approximately 2 hours prior to this examination. The lung bases are clear. The liver and spleen appear unremarkable. Clips are noted in the gallbladder fossa. Residual contrast from the prior CT examination of the chest is noted in the kidneys, ureters and bladder. No significant renal anomalies are seen. There are probable subcentimeter cysts associated with the left kidney. The ureters appear unremarkable and the urinary bladder appears grossly normal. No adrenal pathology is seen and the pancreas appears unremarkable. The appendix is not definitely seen in the right lower quadrant but no secondary signs to suggest appendicitis are seen. Diverticular disease is noted associated with the large bowel predominantly in the sigmoid colon. Active inflammation is not seen. There are degenerative changes in the lumbar spine. There is slight anterolisthesis of L5 relative to S1. IMPRESSION: No acute finding seen in the abdomen or pelvis
[2017-01-09] MEDS ORDERED: ONDANSETRON PF 4 MG/2 ML VIAL. IV PRN ×2 (12:15→12:44)
[2017-01-09] MEDS ORDERED: MORPHINE SULFATE 4 MG/ML DISP.SYRIN. IV PRN (12:15)
--- NOTE | 2017-01-09 12:44 | PDOC1 ---
History and Physical Date of Admission Date of Admission DATE: 01/09/17 TIME: 12:38 Identification/Chief Complaint Chief Complaint abdominal pain Problems: Source Source: Caregiver, Chart review, Patient History of Present Illness History of Present Illness 56 y.o female with hx aneurysm maintained on Beta [place] but admits not taking it, admitted for pancreatitis,. Acute onset abd pain, started during , claimed nausea but no emesis, no change in BM, She actually points to her R groin area and now moving to her RLQ area, some radiation to the back, Relieved by IV dilaudid ( requests the same drug upstairs), down to a 5./10,. Hx pancreatitis in the past, claims only social drinker, non smoker and no recreational drug use,. S/.p cholecystectomy,. Looking at old admits under PCPdr. Kate, loves her narcs. Fired by PCP bec she forged a narcotic script. Seen at ER, belly soft, looks comfortable, VS ok, lipase 820. CT abd/pelvis is neg, Past Medical History Cardiovascular: HTN, Other Pulmonary: Asthma CENTRAL NERVOUS SYSTEM: Migraine GI: Other Psych: Anxiety, Depression Musculoskeletal: Osteoarthritis, Other Renal/: Other Past Surgical History Past Surgical History: Breast Biopsy, Cholecystectomy, Tubal Ligation, Hysterectomy Family History Family History: Cancer, Coronary Artery Disease, Hypertension Social History Smoke: No ALCOHOL: social Drugs: None Current Problem List Problem List Problems Medical Problems: (1) Abdominal pain Status: Acute Problems: Current Medications Current Medications Current Medications Hydromorphone HCl (Dilaudid) 0.5 mg PRN Q15MIN PRN IV/SQ PAIN GREATER THAN 3/ 10 Last administered on 01/09/17 09:29; Start 01/09/17 at 09:30; Stop 01/10/17 at 09:29 Sodium Chloride 1,000 ml @ 1,000 mls/hr Q1H IV Last administered on 01/09/17 09:26; Start 01/09/17 at 09:30; Stop 01/09/17 at 10:29; Status DC Ondansetron HCl (Zofran) 4 mg 1X ONCE IV Last administered on 01/09/17 09:28 ; Start 01/09/17 at 09:30; Stop 01/09/17 at 09:31; Status DC Iohexol (Omnipaque 240 Mg/ml) 30 ml 1X ONCE PO Last administered on 01/09/17t 10:44; Start 01/09/17 at 09:45; Stop 01/09/17 at 09:46; Status DC Info (Do NOT chart on this entry -- for MONITORING) 1 each PRN DAILY PRN MC SEE COMMENTS; Start 01/09/17 at 09:45; Stop 01/11/17 at 09:44 Ondansetron HCl (Zofran) 4 mg PRN Q8HRS PRN IV NAUSEA/VOMITING; Start 01/09/17 at 12:15; Stop 01/10/17 at 12:14 Morphine Sulfate 4 mg PRN Q4HRS PRN IV PAIN; Start 01/09/17 at 12:15 Active Scripts Active Ibuprofen 800 Mg Tablet 800 Mg PO PRN Q6HRS PRN Fioricet 50-300-40 Mg Capsule (Butalb/Acetaminophen/Caffeine) 1 Each Capsule 1 Each PO PRN Q4HRS PRN Cyclobenzaprine Hcl 10 Mg Tablet 1 Tab PO QHS PRN Naprosyn (Naproxen) 500 Mg Tablet 1 Tab PO BID [place] 5-325 Tablet (Acetaminophen/Hydrocodone Bitart) 1 Each Tablet 1 Tab PO Q4- 6HRS PRN Zofran (Ondansetron Hcl) 4 Mg Tablet 4 Mg PO BID PRN [place] 5-325 Tablet (Acetaminophen/Hydrocodone Bitart) 1 Each Tablet 1 Tab PO PRN Q6HRS PRN [place] 5-325 Tablet (Acetaminophen/Hydrocodone Bitart) 1 Each Tablet 1 Tab PO PRN Q6HRS PRN Zofran Odt (Ondansetron) 4 Mg Tab.rapdis 1 Tab SL Q8HRS PRN Hydrocodone-Apap 7.5-325 (Hydrocodone Bit/Acetaminophen) 1 Each Tablet 1 Tab PO PRN Q6HRS PRN Senna (Sennosides) 8.6 Mg Tablet 8.6 Mg PO PRN BID PRN 30 Days Valentinap 10,000 Units Capsule (Lipase/Protease/Amylase) 1 Each Capsule. 2 Cap PO TIDWMEALS 30 Days Reported Ibuprofen 800 Mg Tablet 800 Mg PO PRN Q6HRS PRN Estradiol 1 Mg Tablet 1 Tab PO DAILY [Metoprolol] 25 Mg PO BID Imitrex (Sumatriptan Succinate) 100 Mg Tablet 100 Mg PO PRN BID PRN Omeprazole 40 Mg Capsule.dr 1 Cap PO BID Allergies Allergies: Coded Allergies: No Known Drug Allergies (Unverified , 01/09/17) ROS General: No: Chills, Night Sweats, Fatigue, Malaise, Appetite, Other PSYCHOLOGICAL ROS: No: Anxiety, Behavioral Disorder, Concentration difficultie , Decreased libido, Depression, Disorientation, Hallucinations, Hostility, Irritablity, Memory difficulties, Mood Swings, Obsessive thoughts, Physical abuse, Sexual abuse, Sleep disturbances, Suicidal ideation, Other Eyes: No Blurry vision, No Decreased vision, No Double vision, No Dry eyes, No Excessive tearing, No Eye Pain, No Itchy Eyes, No Loss of vision, No Photophobia , No Scotomata, No Uses contacts, No Uses glasses, No Other HEENT: No: Heacaches, Visual Changes, Hearing change, Nasal congestion, Nasal discharge, Oral lesions, Sinus pain, Sore Throat, Epistaxis, Sneezing, Snoring, Tinnitus, Vertigo, Vocal changes, Other ALLERGY AND IMMUNOLOGY: No: Hives, Insect Bite Sensitivity, Itchy/Watery Eyes, Nasal Congestion, Post Nasal Drip, Seasonal Allergies, Other Hematological and Lymphatic: No: Bleeding Problems, Blood Clots, Blood Transfusions, Brusing, Night Sweats, Pallor, Swollen Lymph Nodes, Other ENDOCRINE: No: Breast Changes, Galactorrhea, Hair Pattern Changes, Hot Flashes , Malaise/lethargy, Mood Swings, Palpitations, Polydipsia/polyuria, Skin Changes , Temperature Intolerance, Unexpected Weight Changes, Other Breast: No New/Changing Breast Lumps, No Nipple changes, No Nipple discharge, No Other Respiratory: No: Cough, Hemoptysis, Orthopnea, Pleuritic Pain, Shortness of breath, SOB with excertion, Sputum Changes, Stridor, Tachypnea, Wheezing, Other Cardiovascular: No Chest Pain, No Palpitations, No Orthopnea, No Paroxysmal Noc. Dyspnea, No Edema, No Lt Headedness, No Other Gastrointestinal: Yes Nausea, Yes Abdominal Pain Genitourinary: No Dysuria, No Frequency, No Incontinence, No Hematuria, No Retention, No Discharge, No Urgency, No Pain, No Flank Pain, No Other, No , No , No , No , No , No , No Musculoskeletal: No Gait Disturbance, No Joint Pain, No Joint Stiffness, No Joint Swelling, No Muscle Pain, No Muscular Weakness, No Pain In:, No Swelling In:, No Other Neurological: No Behavorial Changes, No Bowel/Bladder ControlChng, No Confusion , No Dizziness, No Gait Disturbance, No Headaches, No Impaired Coord/balance, No Memory Loss, No Numbness/Tingling, No Seizures, No Speech Problems, No Tremors, No Visual Changes, No Weakness, No Other Skin: No Dry Skin, No Eczema, No Hair Changes, No Lumps, No Mole Changes, No Mottling, No Nail Changes, No Pruritus, No Rash, No Skin Lesion Changes, No Other, No Acne Physical Exam General: Alert, Oriented X3, Cooperative, No acute distress HEENT: PERRLA, EOMI Lungs: Clear to auscultation, Normal air movement Heart: S1S2, RRR, no thrills, no rubs, no gallops Cardiovascular: S1, S2 Breasts: Normal Abdomen: Normal bowel sounds, Soft, No tenderness, No hepatosplenomegaly, No masses Male Genitals Exam: normal genitalia, normal prostate Rectal Exam: not examined, mass PELVIC: Nml ext genitalia, Nml ext vulva Extremities: No clubbing, No cyanosis, No edema, Normal pulses, No tenderness/ swelling Skin: No rashes, No breakdown, No significant lesion Neuro: Normal gait, Normal speech, Strength at 5/5 X4 ext, Normal tone, Sensation intact, Cranial nerves 3-12 NL, Reflexes 2+ Psych/Mental Status: Mental status NL, Mood NL Vitals Vitals Vital Signs Date Time Temp Pulse Resp B/P (MAP) Pulse Ox O2 Delivery O2 Flow Rate FiO2 01/09/17 12:21 91 20 156/89 (111) 99 Room Air 01/09/17 09:13 97.5 97.5 Labs Labs Laboratory Tests Test 01/09/17 09:15 01/09/17 09:18 Urine Collection Type Unknown Urine Color Yellow Urine Clarity Clear Urine pH 5.5 Urine Specific [place] <=1.005 Urine Protein Negative mg/dL (NEG-TRACE) Urine Glucose (UA) Negative mg/dL (NEG) Urine Ketones (Stick) Negative mg/dL (NEG) Urine Blood Trace (NEG) Urine Nitrite Negative (NEG) Urine Bilirubin Negative (NEG) Urine Urobilinogen Dipstick 0.2 mg/dL (0.2 mg/dL) Urine Leukocyte Esterase Negative (NEG) Urine RBC Rare /HPF (0-2) Urine WBC 0 /HPF (0-4) Urine Squamous Epithelial Cells Many /LPF Urine Bacteria 0 /HPF (0-FEW) Urine Hyaline Casts Moderate /HPF Urine Mucus Mod /LPF Urine Opiates Screen Pos (NEG) Urine Methadone Screen Neg (NEG) Urine Barbiturates Neg (NEG) Urine Phencyclidine Screen Neg (NEG) Urine Amphetamine/Methamphetamine Neg (NEG) Urine Benzodiazepines Screen Neg (NEG) Urine Cocaine Screen Neg (NEG) Urine Cannabinoids Screen Neg (NEG) Urine Ethyl Alcohol Neg (NEG) White Blood Count 8.1 x10^3/uL (4.0-11.0) Red Blood Count 4.25 x10^6/uL (3.50-5.40) Hemoglobin 12.8 g/dL (12.0-15.5) Hematocrit 38.3 % (36.0-47.0) Mean Corpuscular Volume 90 fL (79-100) Mean Corpuscular Hemoglobin 30 pg (25-35) Mean Corpuscular Hemoglobin Concent 34 g/dL (31-37) Red Cell Distribution Width 13.8 % (11.5-14.5) Platelet Count 336 x10^3/uL (140-400) Neutrophils (%) (Auto) 62 % (31-73) Lymphocytes (%) (Auto) 28 % (24-48) Monocytes (%) (Auto) 8 % (0-9) Eosinophils (%) (Auto) 3 % (0-3) Basophils (%) (Auto) 1 % (0-3) Neutrophils # (Auto) 5.0 x10^3uL (1.8-7.7) Lymphocytes # (Auto) 2.2 x10^3/uL (1.0-4.8) Monocytes # (Auto) 0.6 x10^3/uL (0.0-1.1) Eosinophils # (Auto) 0.2 x10^3/uL (0.0-0.7) Basophils # (Auto) 0.1 x10^3/uL (0.0-0.2) Prothrombin Time 13.4 SEC (11.7-14.0) Prothromb Time International Ratio 1.1 (0.8-1.1) Activated Partial Thromboplast Time 29 SEC (24-38) Sodium Level 135 mmol/L (136-145) Potassium Level 3.8 mmol/L (3.5-5.1) Chloride Level 101 mmol/L (98-107) Carbon Dioxide Level 22 mmol/L (21-32) Anion Gap 12 (6-14) Blood Urea Nitrogen 20 mg/dL (7-20) Creatinine 1.4 mg/dL (0.6-1.0) Estimated GFR (Cockcroft-Gault) 38.9 Glucose Level 121 mg/dL (70-99) Calcium Level 9.1 mg/dL (8.5-10.1) Total Bilirubin 0.3 mg/dL (0.2-1.0) Direct Bilirubin 0.1 mg/dL (0.0-0.2) Aspartate Amino Transf (AST/SGOT) 14 U/L (15-37) Alanine Aminotransferase (ALT/SGPT) 18 U/L (14-59) Alkaline Phosphatase 107 U/L (46-116) Creatine Kinase 30 U/L (26-192) Creatine Kinase MB (Mass) < 0.5 ng/mL (0.0-3.6) Creatine Kinase MB Relative Index % (0-4) Total Protein 7.6 g/dL (6.4-8.2) Albumin 3.3 g/dL (3.4-5.0) Lipase 820 U/L (73-393) Laboratory Tests Test 01/09/17 09:15 01/09/17 09:18 Urine Collection Type Unknown Urine Color Yellow Urine Clarity Clear Urine pH 5.5 Urine Specific [place] <=1.005 Urine Protein Negative mg/dL (NEG-TRACE) Urine Glucose (UA) Negative mg/dL (NEG) Urine Ketones (Stick) Negative mg/dL (NEG) Urine Blood Trace (NEG) Urine Nitrite Negative (NEG) Urine Bilirubin Negative (NEG) Urine Urobilinogen Dipstick 0.2 mg/dL (0.2 mg/dL) Urine Leukocyte Esterase Negative (NEG) Urine RBC Rare /HPF (0-2) Urine WBC 0 /HPF (0-4) Urine Squamous Epithelial Cells Many /LPF Urine Bacteria 0 /HPF (0-FEW) Urine Hyaline Casts Moderate /HPF Urine Mucus Mod /LPF Urine Opiates Screen Pos (NEG) Urine Methadone Screen Neg (NEG) Urine Barbiturates Neg (NEG) Urine Phencyclidine Screen Neg (NEG) Urine Amphetamine/Methamphetamine Neg (NEG) Urine Benzodiazepines Screen Neg (NEG) Urine Cocaine Screen Neg (NEG) Urine Cannabinoids Screen Neg (NEG) Urine Ethyl Alcohol Neg (NEG) White Blood Count 8.1 x10^3/uL (4.0-11.0) Red Blood Count 4.25 x10^6/uL (3.50-5.40) Hemoglobin 12.8 g/dL (12.0-15.5) Hematocrit 38.3 % (36.0-47.0) Mean Corpuscular Volume 90 fL (79-100) Mean Corpuscular Hemoglobin 30 pg (25-35) Mean Corpuscular Hemoglobin Concent 34 g/dL (31-37) Red Cell Distribution Width 13.8 % (11.5-14.5) Platelet Count 336 x10^3/uL (140-400) Neutrophils (%) (Auto) 62 % (31-73) Lymphocytes (%) (Auto) 28 % (24-48) Monocytes (%) (Auto) 8 % (0-9) Eosinophils (%) (Auto) 3 % (0-3) Basophils (%) (Auto) 1 % (0-3) Neutrophils # (Auto) 5.0 x10^3uL (1.8-7.7) Lymphocytes # (Auto) 2.2 x10^3/uL (1.0-4.8) Monocytes # (Auto) 0.6 x10^3/uL (0.0-1.1) Eosinophils # (Auto) 0.2 x10^3/uL (0.0-0.7) Basophils # (Auto) 0.1 x10^3/uL (0.0-0.2) Prothrombin Time 13.4 SEC (11.7-14.0) Prothromb Time International Ratio 1.1 (0.8-1.1) Activated Partial Thromboplast Time 29 SEC (24-38) Sodium Level 135 mmol/L (136-145) Potassium Level 3.8 mmol/L (3.5-5.1) Chloride Level 101 mmol/L (98-107) Carbon Dioxide Level 22 mmol/L (21-32) Anion Gap 12 (6-14) Blood Urea Nitrogen 20 mg/dL (7-20) Creatinine 1.4 mg/dL (0.6-1.0) Estimated GFR (Cockcroft-Gault) 38.9 Glucose Level 121 mg/dL (70-99) Calcium Level 9.1 mg/dL (8.5-10.1) Total Bilirubin 0.3 mg/dL (0.2-1.0) Direct Bilirubin 0.1 mg/dL (0.0-0.2) Aspartate Amino Transf (AST/SGOT) 14 U/L (15-37) Alanine Aminotransferase (ALT/SGPT) 18 U/L (14-59) Alkaline Phosphatase 107 U/L (46-116) Creatine Kinase 30 U/L (26-192) Creatine Kinase MB (Mass) < 0.5 ng/mL (0.0-3.6) Creatine Kinase MB Relative Index % (0-4) Total Protein 7.6 g/dL (6.4-8.2) Albumin 3.3 g/dL (3.4-5.0) Lipase 820 U/L (73-393) VTE Prophylaxis Ordered VTE Prophylaxis Devices: Yes VTE Pharmacological Prophylaxi: Yes Assessment/Plan Assessment/Plan 1. Mild pancreatitis (lipase 820) 2. NArc seeking behavior 3. Aneurysm maintained on BB (metoprolol) PLAn: OBS admit, liquid diet IVF Recheck LIpase boy Dilaudid low dose PO pain med COnt BB Seen at ER Dw ER CHARLEY WYATT MD January 09, 2017 12:44
[2017-01-09] MEDS ORDERED: SENNOSIDES 8.6 MG TABLET PO PRN (12:45)
[2017-01-09] MEDS ORDERED: ONDANSETRON ODT 4 MG TAB.RAPDIS. PO PRN (12:45)
[2017-01-09] MEDS ORDERED: CYCLOBENZAPRINE 10 MG TABLET. PO PRN (12:45)
[2017-01-09] MEDS ORDERED: HYDROcodone/APAP 5/325MG 1 TAB TABLET PO PRN (12:45)
[2017-01-09] MEDS: LIPASE/PROTEAS/AMYLAS 10/34/55 CAPSULE.DR. PO SCH ×2 (13:00→17:00)
[2017-01-09] MEDS: ESTRADIOL 1 MG TABLET. PO SCH (13:00)
[2017-01-09] MEDS: METOPROLOL TART IMMED RELEASE 25 MG TABLET. PO SCH ×2 (13:00→20:55)
[2017-01-09] MEDS: PANTOPRAZOLE 40 MG TABLET.DR. PO SCH (13:00)
[2017-01-09] MEDS: HYDROmorphone 2 MG/ML VIAL IVP PRN ×2 (13:05→17:44)
[2017-01-09 13:10] VITALS: BP 146/93
[2017-01-09 15:00] VITALS: BP 114/76
[2017-01-09] MEDS: SUMAtriptan SUCCINATE 100 MG TABLET PO PRN (15:31)
[2017-01-09] MEDS: HYDROcodone/APAP 5/325MG 1 TAB TABLET PO PRN (15:32)
[2017-01-09] MEDS ORDERED: NAPROXEN 500 MG TABLET PO SCH (17:00)
[2017-01-09 19:05] VITALS: BP 149/86
[2017-01-09] MEDS: NAPROXEN 500 MG TABLET PO PRN (20:50)
[2017-01-09 23:09] VITALS: BP 124/83
[2017-01-10 03:05] VITALS: BP 107/73
[2017-01-10] MEDS: HYDROcodone/APAP 5/325MG 1 TAB TABLET PO PRN ×3 (04:03→12:58)
[2017-01-10] MEDS: HYDROmorphone 2 MG/ML VIAL IVP PRN ×2 (05:14→10:15)
[2017-01-10] MEDS: SUMAtriptan SUCCINATE 100 MG TABLET PO PRN ×2 (05:14→14:54)
[2017-01-10 07:01] LABS: BASO # 0.1 x10^3/uL (0.0-0.2); BASO % 1 % (0-3); EOS % 3 % (0-3); HEMATOCRIT 34.6 % (36.0-47.0); HEMOGLOBIN 11.2 g/dL (12.0-15.5); LYMPH # 2.4 x10^3/uL (1.0-4.8); LYMPH % 36 % (24-48); MEAN CORPUSCULAR HEMOGLOBIN 30 pg (25-35); MEAN CORPUSCULAR HGB CONC 32 g/dL (31-37); MEAN CORPUSCULAR VOLUME 94 fL (79-100); MONO % 8 % (0-9); NEUT % 52 % (31-73); PLATELET COUNT 242 x10^3/uL (140-400); RED BLOOD COUNT 3.69 x10^6/uL (3.50-5.40); RED CELL DISTRIBUTION WIDTH 14.2 % (11.5-14.5); WHITE BLOOD COUNT 6.7 x10^3/uL (4.0-11.0)
[2017-01-10 07:13] LABS: CALCIUM 8.8 mg/dL (8.5-10.1); CREATININE 1.1 mg/dL (0.6-1.0); GFR 51.4; POTASSIUM 4.3 mmol/L (3.5-5.1)
[2017-01-10 07:15] VITALS: BP 117/72
[2017-01-10] MEDS: PANTOPRAZOLE 40 MG TABLET.DR. PO SCH (08:40)
[2017-01-10] MEDS: LIPASE/PROTEAS/AMYLAS 10/34/55 CAPSULE.DR. PO SCH ×2 (08:41→11:54)
[2017-01-10] MEDS: METOPROLOL TART IMMED RELEASE 25 MG TABLET. PO SCH (08:41)
[2017-01-10] MEDS: ESTRADIOL 1 MG TABLET. PO SCH (08:41)
[2017-01-10 11:11] VITALS: BP 112/67
--- NOTE | 2017-01-10 11:13 | PDOC3 ---
Discharge Summary Visit Information Date of Admission: January 09, 2017 Date of Discharge: January 10, 2017 Admitting Diagnosis Comment: 1. Mild pancreatitis (lipase 820) 2. NArc seeking behavior 3. Aneurysm maintained on BB (metoprolol) Final Diagnosis Problems Medical Problems: (1) Abdominal pain Status: Acute Brief Hospital Course Allergies Allergies Coded Allergies Type Severity Reaction Last Updated Verified No Known Drug Allergies 01/09/17 No Vital Signs Vital Signs Date Time Temp Pulse Resp B/P (MAP) Pulse Ox O2 Delivery O2 Flow Rate FiO2 01/10/17 10:18 Room Air 01/10/17 08:41 65 117/72 01/10/17 07:15 97.2 16 97 97.2 Lab Results Laboratory Tests Test 01/09/17 09:15 01/09/17 09:18 01/10/17 05:55 Urine Collection Type Unknown Urine Color Yellow Urine Clarity Clear Urine pH 5.5 Urine Specific [place] <=1.005 Urine Protein Negative mg/dL (NEG-TRACE) Urine Glucose (UA) Negative mg/dL (NEG) Urine Ketones (Stick) Negative mg/dL (NEG) Urine Blood Trace (NEG) Urine Nitrite Negative (NEG) Urine Bilirubin Negative (NEG) Urine Urobilinogen Dipstick 0.2 mg/dL (0.2 mg/dL) Urine Leukocyte Esterase Negative (NEG) Urine RBC Rare /HPF (0-2) Urine WBC 0 /HPF (0-4) Urine Squamous Epithelial Cells Many /LPF Urine Bacteria 0 /HPF (0-FEW) Urine Hyaline Casts Moderate /HPF Urine Mucus Mod /LPF Urine Opiates Screen Pos (NEG) Urine Methadone Screen Neg (NEG) Urine Barbiturates Neg (NEG) Urine Phencyclidine Screen Neg (NEG) Urine Amphetamine/Methamphetamine Neg (NEG) Urine Benzodiazepines Screen Neg (NEG) Urine Cocaine Screen Neg (NEG) Urine Cannabinoids Screen Neg (NEG) Urine Ethyl Alcohol Neg (NEG) White Blood Count 8.1 x10^3/uL (4.0-11.0) 6.7 x10^3/uL (4.0-11.0) Red Blood Count 4.25 x10^6/uL (3.50-5.40) 3.69 x10^6/uL (3.50-5.40) Hemoglobin 12.8 g/dL (12.0-15.5) 11.2 g/dL (12.0-15.5) Hematocrit 38.3 % (36.0-47.0) 34.6 % (36.0-47.0) Mean Corpuscular Volume 90 fL (79-100) 94 fL (79-100) Mean Corpuscular Hemoglobin 30 pg (25-35) 30 pg (25-35) Mean Corpuscular Hemoglobin Concent 34 g/dL (31-37) 32 g/dL (31-37) Red Cell Distribution Width 13.8 % (11.5-14.5) 14.2 % (11.5-14.5) Platelet Count 336 x10^3/uL (140-400) 242 x10^3/uL (140-400) Neutrophils (%) (Auto) 62 % (31-73) 52 % (31-73) Lymphocytes (%) (Auto) 28 % (24-48) 36 % (24-48) Monocytes (%) (Auto) 8 % (0-9) 8 % (0-9) Eosinophils (%) (Auto) 3 % (0-3) 3 % (0-3) Basophils (%) (Auto) 1 % (0-3) 1 % (0-3) Neutrophils # (Auto) 5.0 x10^3uL (1.8-7.7) 3.4 x10^3uL (1.8-7.7) Lymphocytes # (Auto) 2.2 x10^3/uL (1.0-4.8) 2.4 x10^3/uL (1.0-4.8) Monocytes # (Auto) 0.6 x10^3/uL (0.0-1.1) 0.5 x10^3/uL (0.0-1.1) Eosinophils # (Auto) 0.2 x10^3/uL (0.0-0.7) 0.2 x10^3/uL (0.0-0.7) Basophils # (Auto) 0.1 x10^3/uL (0.0-0.2) 0.1 x10^3/uL (0.0-0.2) Prothrombin Time 13.4 SEC (11.7-14.0) Prothromb Time International Ratio 1.1 (0.8-1.1) Activated Partial Thromboplast Time 29 SEC (24-38) Sodium Level 135 mmol/L (136-145) 141 mmol/L (136-145) Potassium Level 3.8 mmol/L (3.5-5.1) 4.3 mmol/L (3.5-5.1) Chloride Level 101 mmol/L (98-107) 107 mmol/L (98-107) Carbon Dioxide Level 22 mmol/L (21-32) 25 mmol/L (21-32) Anion Gap 12 (6-14) 9 (6-14) Blood Urea Nitrogen 20 mg/dL (7-20) 12 mg/dL (7-20) Creatinine 1.4 mg/dL (0.6-1.0) 1.1 mg/dL (0.6-1.0) Estimated GFR (Cockcroft-Gault) 38.9 51.4 Glucose Level 121 mg/dL (70-99) 102 mg/dL (70-99) Calcium Level 9.1 mg/dL (8.5-10.1) 8.8 mg/dL (8.5-10.1) Total Bilirubin 0.3 mg/dL (0.2-1.0) Direct Bilirubin 0.1 mg/dL (0.0-0.2) Aspartate Amino Transf (AST/SGOT) 14 U/L (15-37) Alanine Aminotransferase (ALT/SGPT) 18 U/L (14-59) Alkaline Phosphatase 107 U/L (46-116) Creatine Kinase 30 U/L (26-192) Creatine Kinase MB (Mass) < 0.5 ng/mL (0.0-3.6) Creatine Kinase MB Relative Index % (0-4) Total Protein 7.6 g/dL (6.4-8.2) Albumin 3.3 g/dL (3.4-5.0) Lipase 820 U/L (73-393) 460 U/L (73-393) Laboratory Tests Test 01/10/17 05:55 White Blood Count 6.7 x10^3/uL (4.0-11.0) Red Blood Count 3.69 x10^6/uL (3.50-5.40) Hemoglobin 11.2 g/dL (12.0-15.5) Hematocrit 34.6 % (36.0-47.0) Mean Corpuscular Volume 94 fL (79-100) Mean Corpuscular Hemoglobin 30 pg (25-35) Mean Corpuscular Hemoglobin Concent 32 g/dL (31-37) Red Cell Distribution Width 14.2 % (11.5-14.5) Platelet Count 242 x10^3/uL (140-400) Neutrophils (%) (Auto) 52 % (31-73) Lymphocytes (%) (Auto) 36 % (24-48) Monocytes (%) (Auto) 8 % (0-9) Eosinophils (%) (Auto) 3 % (0-3) Basophils (%) (Auto) 1 % (0-3) Neutrophils # (Auto) 3.4 x10^3uL (1.8-7.7) Lymphocytes # (Auto) 2.4 x10^3/uL (1.0-4.8) Monocytes # (Auto) 0.5 x10^3/uL (0.0-1.1) Eosinophils # (Auto) 0.2 x10^3/uL (0.0-0.7) Basophils # (Auto) 0.1 x10^3/uL (0.0-0.2) Sodium Level 141 mmol/L (136-145) Potassium Level 4.3 mmol/L (3.5-5.1) Chloride Level 107 mmol/L (98-107) Carbon Dioxide Level 25 mmol/L (21-32) Anion Gap 9 (6-14) Blood Urea Nitrogen 12 mg/dL (7-20) Creatinine 1.1 mg/dL (0.6-1.0) Estimated GFR (Cockcroft-Gault) 51.4 Glucose Level 102 mg/dL (70-99) Calcium Level 8.8 mg/dL (8.5-10.1) Lipase 460 U/L (73-393) Brief Hospital Course Ms. Chavez is a 56 old [sex] who presented with [ ]56 y.o female with hx aneurysm maintained on Beta [place] but admits not taking it, admitted for pancreatitis,. Acute onset abd pain, started during weekend, claimed nausea but no emesis, no change in BM, She actually points to her R groin area and now moving to her RLQ area, some radiation to the back, Relieved by IV dilaudid ( requests the same drug upstairs), down to a 5./10,. Hx pancreatitis in the past, claims only social drinker, non smoker and no recreational drug use,. S/.p cholecystectomy,. Looking at old admits under PCPdr. Kate, loves her narcs. Fired by PCP bec she forged a narcotic script. Seen at ER, belly soft, looks comfortable, VS ok, lipase 820. CT abd/pelvis is neg, COURSE; Admitted overnight, toelrated GI soft, LIpase down to 400s, stable to go home Rx for panreatic enzymes and percocet given Discharge Information Condition at Discharge: Improved, Stable Disposition/Orders: D/C to Home Scheduled Estradiol (Estradiol), 1 TAB PO DAILY, (Reported) Lipase/Protease/Amylase (Zenpep Dr 10,000 Units Capsule), 2 CAP PO TIDWMEALS Naproxen (Naprosyn), 1 TAB PO BID Omeprazole (Omeprazole), 1 CAP PO BID, (Reported) [Metoprolol], 25 MG PO BID, (Reported) Scheduled PRN Butalb/Acetaminophen/Caffeine (Fioricet 50-300-40 Mg Capsule), 1 EACH PO PRN Q4HRS PRN for MIGRAINE HEADACHE Cyclobenzaprine Hcl (Cyclobenzaprine Hcl), 1 TAB PO QHS PRN for MUSCLE SPASMS Hydrocodone Bit/Acetaminophen (Hydrocodone-Apap 7.5-325 ), 1 TAB PO PRN Q6HRS PRN for PAIN Hydrocodone/Apap 5-325 ([place] 5-325 Tablet), 1 TAB PO PRN Q6HRS PRN for PAIN Hydrocodone/Apap 5-325 ([place] 5-325 Tablet), 1 TAB PO PRN Q6HRS PRN for PAIN Hydrocodone/Apap 5-325 ([place] 5-325 Tablet), 1 TAB PO Q4-6HRS PRN for PAIN Ibuprofen (Ibuprofen), 800 MG PO PRN Q6HRS PRN for INFLAMMATION, (Reported) Ibuprofen (Ibuprofen), 800 MG PO PRN Q6HRS PRN for INFLAMMATION Ondansetron (Zofran Odt), 1 TAB SL Q8HRS PRN for NAUSEA Ondansetron Hcl (Zofran), 4 MG PO BID PRN for NAUSEA/VOMITING Sennosides (Senna), 8.6 MG PO PRN BID PRN for CONSTIPATION Sumatriptan Succinate (Imitrex), 100 MG PO PRN BID PRN for MIGRAINE HEADACHE, ( Reported) CHARLEY EVANGELISTA MD January 10, 2017 11:13
[2017-01-10] MEDS: NAPROXEN 500 MG TABLET PO PRN (11:54)
[2017-01-10 15:00] VITALS: BP 107/63
== END 2017-01-10 15:15 | disposition home or self-care (01) ==
LOC: ER 09:00 → 4 NORTH 11:55
PROVIDERS: ADMIT Internal Medicine; ATTEND Internal Medicine
DX: K85.90 Acute pancreatitis without necrosis or infection, unspecified (principal); I10 Essential (primary) hypertension; J45.909 Unspecified asthma, uncomplicated; G43.909 Migraine, unspecified, not intractable, without status migrainosus; F41.9 Anxiety disorder, unspecified; F32.9 Major depressive disorder, single episode, unspecified; K21.9 Gastro-esophageal reflux disease without esophagitis; M19.90 Unspecified osteoarthritis, unspecified site; Z90.49 Acquired absence of other specified parts of digestive tract; Z86.79 Personal history of other diseases of the circulatory system; Z82.49 Family history of ischemic heart disease and other diseases of the circulatory system; Z72.89 Other problems related to lifestyle; Z80.9 Family history of malignant neoplasm, unspecified
CPT/HCPCS: 36415; 74176; 80048; 80076; 81001; 82553; 83690; 85027; 85610; 85730; 96361; 96374; 96375; 96376; 99285; G0378; G0481; J1170; J2405; J7030; Q0162; Q9966; G0379

== ENCOUNTER → 2017-01-09 | Outpatient (CLI) | payer BC ==
[~2017-01-09] MED LIST changes: +IOHEXOL 300 MG/ML 100ML VIAL. IV ONE
--- NOTE | 2017-01-09 09:40 | KCIC ---
EXAM: Chest CT with intravenous contrast. HISTORY: Shortness of breath. TECHNIQUE: Computed tomographic images of the chest were obtained following the administration of 95 cc Omnipaque 300 intravenous contrast. Multiplanar reformatting was performed. *One or more of the following individualized dose reduction techniques were utilized for this examination: 1. Automated exposure control. 2. Adjustment of the mA and/or kV according to patient size. 3. Use of iterative reconstruction technique. COMPARISON: 11/13/2015. FINDINGS: There is no infiltrate, effusion or pneumothorax. There is a faint 2 to 3 mm pleural-based groundglass opacity within the anterior right middle lobe, likely due to subsegmental atelectasis. There is minimal biapical scarring. No suspicious nodule is seen. There is stable ectasia to near aneurysmal dilatation of the ascending aorta to a caliber of 4.0 cm. No dissection is seen. The heart is normal in size. No pathologically enlarged lymph node is seen. There are foci of pneumobilia, possibly due to prior sphincterotomy surgery. The gallbladder is surgically absent. The spleen is normal in size. The adrenal glands are unremarkable. There is renal cortical thinning. There is no suspicious osseous lesion. There are few benign bone islands. IMPRESSION: 1. No acute pulmonary finding. 2. Stable ectasia to near aneurysmal dilatation of the ascending aorta to a caliber of 4.0 cm. 3. Trace pneumobilia. Correlate with surgical history. Electronically signed by: Paola Winchester MD (01/09/2017 9:37 AM)
== END | disposition home or self-care (01) ==
LOC: KCIC CT 08:13
PROVIDERS: ATTEND Internal Medicine
DX: I71.2 Thoracic aortic aneurysm, without rupture (principal)
CPT/HCPCS: 71260; Q9967

== ENCOUNTER 2017-02-19 14:15 | Emergency (ER) | payer BC ==
[~2017-02-19] VITALS: Ht 162.6 cm; Wt 52.2 kg
[~2017-02-19 14:15] MED LIST changes: -OMEP20TA PO; +OMEP20TA8 PO; +SENN-79 PO; -SENN8.6T3 PO; -TRAM-29 PO; +TRAM-48 PO
[2017-02-19] MEDS ORDERED: IV NORMAL SALINE 1000ML BAG 1,000 ML IV ONE (15:00)
[2017-02-19] MEDS ORDERED: ONDANSETRON PF 4 MG/2 ML VIAL. IV ONE (15:00)
[2017-02-19] MEDS ORDERED: KETOROLAC TROMETHAMINE 30 MG/ML INJ. IV ONE (15:00)
[2017-02-19 15:03] LABS: BASO # 0.1 x10^3/uL (0.0-0.2); BASO % 1 % (0-3); EOS % 2 % (0-3); HEMATOCRIT 38.1 % (36.0-47.0); HEMOGLOBIN 12.6 g/dL (12.0-15.5); LYMPH # 2.7 x10^3/uL (1.0-4.8); LYMPH % 23 % (24-48); MEAN CORPUSCULAR HEMOGLOBIN 30 pg (25-35); MEAN CORPUSCULAR HGB CONC 33 g/dL (31-37); MEAN CORPUSCULAR VOLUME 91 fL (79-100); MONO % 7 % (0-9); NEUT % 68 % (31-73); PLATELET COUNT 404 x10^3/uL (140-400); RED BLOOD COUNT 4.17 x10^6/uL (3.50-5.40); RED CELL DISTRIBUTION WIDTH 15.3 % (11.5-14.5)
[2017-02-19 15:13] LABS: CALCIUM 9.2 mg/dL (8.5-10.1); CREATININE 1.2 mg/dL (0.6-1.0); GFR 46.3; POTASSIUM 3.6 mmol/L (3.5-5.1)
[2017-02-19] MEDS ORDERED: IOHEXOL 300 MG/ML 75 ML VIAL IV ONE (15:15)
[2017-02-19] MEDS ORDERED: CONTRAST GIVEN MC PRN (15:15)
[2017-02-19 15:20] LABS: ALBUMIN 3.6 g/dL (3.4-5.0); ALBUMIN/GLOBULIN RATIO 0.8 (1.0-1.7); TOTAL BILIRUBIN 0.3 mg/dL (0.2-1.0); TOTAL PROTEIN 7.9 g/dL (6.4-8.2)
[2017-02-19 16:16] VITALS: BP 105/71
[2017-02-19] MEDS ORDERED: HYDROcodone/APAP 5/325MG 1 TAB TABLET PO ONE (16:30)
--- NOTE | 2017-02-19 16:38 | RAD ---
CT of the abdomen and pelvis with contrast i 02/19/2017 Indication: Abdominal pain and nausea x1 day. Comparison study: CT of the abdomen and pelvis January 09, 2017. Technique: Multidetector CT imaging of the abdomen and pelvis was obtained following the administration of IV contrast Findings: Limited visualization of the inferior lung bases demonstrates minimal groundglass infiltrate medial right lower lobe. Findings nonspecific could represent mild focal pneumonitis. Prior cholecystectomy is noted. The liver is unremarkable. Spleen is unremarkable. Adrenal glands are unremarkable. Pancreas is grossly unremarkable. Renal cortical thinning is noted bilaterally suggestive of chronic atrophic change. Finding is similar to prior study. There is calcification versus nonobstructing stone in the inferior pole right kidney measuring 5 mm in diameter. The appearance is unchanged. There is no evidence of bowel obstruction. Prior hysterectomy noted. Distal colonic diverticulosis is noted. No evidence of acute diverticulitis is suggested. Evaluation of the bowel is limited secondary to lack of enteric contrast. No acute osseous changes are seen. Impression: 1.No evidence of acute intra-abdominal abnormality or acute change from prior exam. 2. Distal colonic diverticulosis 3. Minimal effusion but infiltrate in the medial basilar right lower lobe. Findings represent mild focal pneumonitis 4. Prior cholecystectomy. Hysterectomy.
[2017-02-19 16:53] LABS: BILIRUBIN,URINE NEGATIVE (NEG); GLUCOSE,URINE NEGATIVE (NEG); NITRITE,URINE NEGATIVE (NEG); PH,URINE 6.5; PROTEIN,URINE NEGATIVE (NEG-TRACE); UROBILINOGEN,URINE 0.2 mg/dL (0.2 mg/dL)
[2017-02-19 17:01] LABS: RBC,URINE 0 /HPF (0-2)
[2017-02-19 17:07] LABS: BACTERIA,URINE 0 /HPF (0-FEW); SQUAMOUS EPITHELIAL CELL,UR OCC /LPF; WBC,URINE OCC /HPF (0-4)
[2017-02-19] MEDS ORDERED: AZIT1PAC PO (17:10)
--- NOTE | 2017-02-19 17:11 | PHYS DOC ---
Past Medical History Past Medical History: Migraines, Pancreatitis Additional Past Medical Histor: aortic ANEURYSM, migraines Past Surgical History: Cholecystectomy, Hysterectomy Additional Past Surgical Histo: shoulder surgery; Alcohol Use: Occasionally Drug Use: None Adult General Chief Complaint Chief Complaint: ABDOMINAL PAIN HPI HPI 57-year-old female with a history of chronic recurrent pancreatitis now presents to the emergency department complaining of epigastric pain and soreness feeling like she is having an attack of pancreatitis. Patient states she has not been a heavy drinker. She states in the past she had gallstones however she had her gallbladder removed. She has nausea with epigastric discomfort. Pain is mildly worse with movement but she has no fevers chills sweats or shaking chills. Normal bowel and bladder habits Review of Systems Review of Systems Constitutional: Denies fever or chills [] Eyes: Denies change in visual acuity, redness, or eye pain [] HENT: Denies nasal congestion or sore throat [] Respiratory: Denies cough or shortness of breath [] Cardiovascular: No additional information not addressed in HPI [] GI: Denies abdominal pain, nausea, vomiting, bloody stools or diarrhea [] : Denies dysuria or hematuria [] Musculoskeletal: Denies back pain or joint pain [] Integument: Denies rash or skin lesions [] Neurologic: Denies headache, focal weakness or sensory changes [] Endocrine: Denies polyuria or polydipsia [] Current Medications Current Medications Current Medications Medications (Trade) Dose Ordered Sig/Chad Start Time Stop Time Status Last Admin Dose Admin Acetaminophen/ Hydrocodone Bitart (Lortab 5/325) 1 tab 1X ONCE 02/19/17 16:30 02/19/17 16:31 DC 02/19/17 16:38 1 TAB Info (Do NOT chart on this entry -- for MONITORING) 1 each PRN DAILY PRN 02/19/17 15:15 02/21/17 15:14 Iohexol (Omnipaque 300 Mg/ml) 75 ml 1X ONCE 02/19/17 15:15 02/19/17 15:16 DC 02/19/17 16:02 75 ML Ketorolac Tromethamine (Toradol) 30 mg 1X ONCE 02/19/17 15:00 02/19/17 15:03 DC 02/19/17 15:19 30 MG Ondansetron HCl (Zofran) 4 mg 1X ONCE 02/19/17 15:00 02/19/17 15:03 DC 02/19/17 15:18 4 MG Sodium Chloride 1,000 ml @ 1,000 mls/hr 1X ONCE 02/19/17 15:00 02/19/17 15:59 DC 02/19/17 15:18 1,000 MLS/HR Allergies Allergies Allergies Coded Allergies Type Severity Reaction Last Updated Verified No Known Drug Allergies 01/09/17 No Physical Exam Physical Exam Well-appearing patient in no acute distress vital signs unremarkable minimal epigastric tenderness no guarding or rebound. No CVA tenderness bilateral. Nontender McBurney's point and no suprapubic pain Constitutional: Well developed, well nourished, no acute distress, non-toxic appearance. [] HENT: Normocephalic, atraumatic, bilateral external ears normal, oropharynx moist, no oral exudates, nose normal. [] Eyes: PERRLA, EOMI, conjunctiva normal, no discharge. [] Neck: Normal range of motion, no tenderness, supple, no stridor. [] Cardiovascular:Heart rate regular rhythm, no murmur [] Lungs & Thorax: Bilateral breath sounds clear to auscultation [] Abdomen: Bowel sounds normal, soft, no tenderness, no masses, no pulsatile masses. [] Skin: Warm, dry, no erythema, no rash. [] Back: No tenderness, no CVA tenderness. [] Extremities: No tenderness, no cyanosis, no clubbing, ROM intact, no edema. [] Neurologic: Alert and oriented X 3, normal motor function, normal sensory function, no focal deficits noted. [] Psychologic: Affect normal, judgement normal, mood normal. [] Current Patient Data Vital Signs Vital Signs Date Time Temp Pulse Resp B/P (MAP) Pulse Ox O2 Delivery O2 Flow Rate FiO2 02/19/17 16:38 99 Room Air 02/19/17 16:16 83 20 105/71 (82) Lab Values Laboratory Tests Test 02/19/17 14:35 White Blood Count 12.0 x10^3/uL (4.0-11.0) H Red Blood Count 4.17 x10^6/uL (3.50-5.40) Hemoglobin 12.6 g/dL (12.0-15.5) Hematocrit 38.1 % (36.0-47.0) Mean Corpuscular Volume 91 fL (79-100) Mean Corpuscular Hemoglobin 30 pg (25-35) Mean Corpuscular Hemoglobin Concent 33 g/dL (31-37) Red Cell Distribution Width 15.3 % (11.5-14.5) H Platelet Count 404 x10^3/uL (140-400) H Neutrophils (%) (Auto) 68 % (31-73) Lymphocytes (%) (Auto) 23 % (24-48) L Monocytes (%) (Auto) 7 % (0-9) Eosinophils (%) (Auto) 2 % (0-3) Basophils (%) (Auto) 1 % (0-3) Neutrophils # (Auto) 8.1 x10^3uL (1.8-7.7) H Lymphocytes # (Auto) 2.7 x10^3/uL (1.0-4.8) Monocytes # (Auto) 0.9 x10^3/uL (0.0-1.1) Eosinophils # (Auto) 0.2 x10^3/uL (0.0-0.7) Basophils # (Auto) 0.1 x10^3/uL (0.0-0.2) Sodium Level 140 mmol/L (136-145) Potassium Level 3.6 mmol/L (3.5-5.1) Chloride Level 105 mmol/L (98-107) Carbon Dioxide Level 28 mmol/L (21-32) Anion Gap 7 (6-14) Blood Urea Nitrogen 12 mg/dL (7-20) Creatinine 1.2 mg/dL (0.6-1.0) H Estimated GFR (Cockcroft-Gault) 46.3 BUN/Creatinine Ratio 10 (6-20) Glucose Level 96 mg/dL (70-99) Calcium Level 9.2 mg/dL (8.5-10.1) Total Bilirubin 0.3 mg/dL (0.2-1.0) Aspartate Amino Transferase (AST) 16 U/L (15-37) Alanine Aminotransferase (ALT) 18 U/L (14-59) Alkaline Phosphatase 104 U/L (46-116) Total Protein 7.9 g/dL (6.4-8.2) Albumin 3.6 g/dL (3.4-5.0) Albumin/Globulin Ratio 0.8 (1.0-1.7) L Lipase 226 U/L (73-393) Laboratory Tests 02/19/17 14:35 Laboratory Tests 02/19/17 14:35 EKG EKG [] Radiology/Procedures Radiology/Procedures [] Course & Med Decision Making Course & Med Decision Making Pertinent Labs and Imaging studies reviewed. (See chart for details) Signs and symptoms consistent with exacerbation of chronic recurrent abdominal pain however patient has no laboratory or radiographic evidence of acute pancreatitis. She does have diverticulosis which is an incidental finding which we will make her aware of. A copy of the CT result will be given to patient to discuss with her doctor. Incidental finding of mild infiltrate in the right lower lobe of her lung. Patient is a smoker. Will prescribe Zithromax and patient were to follow up with PCP. No further workup or treatment indicated at this time and strict return precautions given [] Dragon Disclaimer Dragon Disclaimer This electronic medical record was generated, in whole or in part, using a voice recognition dictation system. Departure Departure Impression: Primary Impression: Epigastric abdominal pain Additional Impression: Pneumonia Referrals: INGRIS FAYE (PCP) Patient Instructions: Abdominal Pain, Pneumonia, Adult Additional Instructions: Your CAT scan does not show any evidence of acute pancreatitis today and your labs are unremarkable. CAT scan did show an incidental finding of diverticulosis. You been given a copy of this result to follow up with your doctor to discuss this. Another incidental finding on the CAT scan was the suggestion of a right lower lung lobe pneumonia and finished Zithromax which is appropriate if this represents an infectious process. Follow-up with your doctor in 1-2 days and return immediately for any severe or worsening symptoms Scripts Azithromycin (ZITHROMAX PACKET) 1 Gm Packet 1 PACKET PO ONCE, #1 PACKET Prov: APRIL GROSS MD 02/19/17 Problem Qualifiers APRIL GROSS MD Feb 19, 2017 17:11
== END 2017-02-19 17:38 | disposition home or self-care (01) ==
LOC: ER 14:15
DX: R10.13 Epigastric pain (principal); R11.0 Nausea; J18.9 Pneumonia, unspecified organism; K86.1 Other chronic pancreatitis; G43.909 Migraine, unspecified, not intractable, without status migrainosus; Z90.49 Acquired absence of other specified parts of digestive tract; Z90.710 Acquired absence of both cervix and uterus
CPT/HCPCS: 36415; 74177; 80053; 81001; 83690; 85027; 96361; 96374; 96375; 99285; J1885; J2405; J7030; Q9967

== ENCOUNTER → 2017-02-26 | Outpatient (CLI) | payer BC ==
[2017-02-19 16:16] VITALS: BP 105/71
[~2017-02-26] MED LIST changes: +AZIT1PAC PO; +REGADENOSON 0.4 MG/5 ML DISP.SYRIN. IV ONE
--- NOTE | 2017-02-26 14:18 | RAD ---
APPROVED REPORT Test Type: Pharmacological Stress Nurse/Tech: Alisha Kolb R.N. Test Indications: pre-op for AAA Cardiac History: Bicuspid valve Medications: See Electronic Medical Record Medical History: See Electronic Medical Record Resting ECG: NSR Resting Heart Rate: 78 bpm Resting Blood Pressure: 111/67mmHg Pretest Chest Pain: No chest pain Nurse/Tech Notes S1S2, lungs clear Consent: The procedure was explained to the patient in lay terms. Informed consent was witnessed. John eout was entered into [employer]. History and Stress Test performed by Alisha Kolb R.N. Pharm. Details Pharmacologic stress testing was performed using 0.4mg per 5ml of regadenoson given intravenously ove r 7-10 seconds. Stress Symptoms Dyspnea POST EXERCISE Reason for Termination: Infusion complete Max HR: 94 bpm Max Blood Pressure: 115/71mmHg Blood Pressure response to exercise: Normal blood pressure response during stress. Chest Pain: No. Arrhythmia: No. ST Change: No. INTERPRETATION Stress EKG Conclusion: Baseline EKG showed sinus rhythm. No ischemic changes at peak stress. No arr hythmias. Imaging Protocol IMAGE PROTOCOL: Rest Tc-99m/stress Tc-99m 1 day Rest: Stress: Viability: Radiopharm.Tc99m [id number] Sestamibi Dose11.3mCi 33mCi Duration 15min. 10min. Img Date 02/26/2017 02/26/2017 Inj-Img [id number]. 75min. Rest Admin Site:IV - Right HandAdministrator:MAGDALENA Howe Stress Admin Site: IV - Right HandAdministrator: MAGDALENA Howe STRESS DATA End Diast. Vol.40.0mlAv. Heart Rate92.0bpm End Syst. Vol.5.0mlCO Index BSA0.0L/min Myocardial Mass88.0gEject. Ufbucjrj81.0% Stress Rates Pk. Fill Rate4.99EDV/secLVtime Pk. Fill 179.59msec Pk. Empty Rate6.31ESV/secLVtime Pk. Msmeh971.98msec 08/15 Pk. Fill0.89EDV/sec Stress Scores Regional WT2.00Summed WT9.00 Regional WM0.00Summed WM3.00 Study quality was good. Left Ventricular size was Normal at Rest and Stress. Lung uptake was Normal. Left Ventricular ejection fraction is 88%. The rest and stress images show normal perfusion, normal contraction and thickening. LV Perf. Quant 17 Seg. SSS0.00 17 Seg. SRS0.00 17 Seg. SDS0.00 Stress Defect Extent (% LAD)0.00Rest Defect Extent (% LAD)0.00Rev. Defect Extent (% LAD)0.00 Stress Defect Extent (% LCX) 0.00Rest Defect Extent (% LCX)0.00Rev. Defect Extent (% LCX)0.00 Stress Defect Extent (% RCA)0.00Rest Defect Extent (% RCA)0.00Rev. Defect Extent (% RCA)0.00 Stress Defect Extent (% NOE)0.00Rest Defect Extent (% NOE)0.00Rev. Defect Extent (% NOE)0.00 Conclusion 1. Regadenoson cardioisotope stress test did not show any evidence of ischemia or infarct. 2. Normal left ventricular systolic function with ejection fraction calculated at 88%. 3. Low risk for cardiac events.
== END | disposition home or self-care (01) ==
LOC: NM 08:55
PROVIDERS: ATTEND Internal Medicine Cardiovascular Disease
DX: R06.09 Other forms of dyspnea (principal)
CPT/HCPCS: 78452; 93017; 96374; 96375; 96376; A9500; J2785

== ENCOUNTER 2017-03-18 18:03 | Emergency (ER) | payer BC ==
[~2017-03-18] VITALS: Ht 162.6 cm; Wt 52.2 kg
[~2017-03-18 18:03] MED LIST changes: -REGADENOSON 0.4 MG/5 ML DISP.SYRIN. IV ONE
[2017-03-18] MEDS ORDERED: METOCLOPRAMIDE HCL 10 MG/2 ML VIAL. IV ONE (18:30)
[2017-03-18] MEDS ORDERED: HALOPERIDOL LACTATE 5 MG/ML VIAL. IVP ONE (18:30)
[2017-03-18] MEDS ORDERED: MAGNESIUM SULFATE 2GM 50 ML IV ONE (18:30)
[2017-03-18] MEDS ORDERED: KETOROLAC TROMETHAMINE 30 MG/ML INJ. IV ONE (18:30)
[2017-03-18] MEDS ORDERED: IV NORMAL SALINE 1000ML BAG 1,000 ML IV ONE (18:30)
[2017-03-18] MEDS ORDERED: diphenhydrAMINE 50 MG/ML VIAL IVP ONE (18:30)
--- NOTE | 2017-03-18 18:33 | PHYS DOC ---
Past Medical History Past Medical History: Migraines, Pancreatitis Additional Past Medical Histor: aortic ANEURYSM Past Surgical History: Cholecystectomy, Hysterectomy Additional Past Surgical Histo: shoulder surgery; Alcohol Use: Occasionally Drug Use: None Adult General Chief Complaint Chief Complaint: HEADACHE HPI HPI Patient is a 57 year old F who presents with with a migraine for the past 4 days. Patient states she has a history of migraines however this headache is different because usually her migraines are on her left shinto and this headache is bilateral behind the eyes and the back of her head. Patient was seen yesterday by her PCP and given IV pain medication with minimal improvement in the pain. Patient returned today because she's having increased headache with nausea and no vomiting. Patient denies any fevers. Patient denies any chest pain or shortness of breath. Patient has no other complaints. Review of Systems Review of Systems GEN: Denies fevers, chills, sweats HEENT: Denies blurred vision, sore throat CV: Denies chest pain RESP: Denies shortness of air, cough GI: Denies n/v/d NEURO: Headache MSK: Denies weakness, joint pain/swelling Current Medications Current Medications Current Medications Medications (Trade) Dose Ordered Sig/Chad Start Time Stop Time Status Last Admin Dose Admin Diphenhydramine HCl (Benadryl) 50 mg 1X ONCE 03/18/17 18:30 03/18/17 18:35 DC 03/18/17 19:07 50 MG Haloperidol Lactate (Haldol) 5 mg 1X ONCE 03/18/17 18:30 03/18/17 18:35 DC 03/18/17 19:07 5 MG Ketorolac Tromethamine (Toradol) 30 mg 1X ONCE 03/18/17 18:30 03/18/17 18:35 DC 03/18/17 19:07 30 MG Magnesium Sulfate/ Dextrose 50 ml @ 25 mls/hr 1X ONCE 03/18/17 18:30 03/18/17 20:29 03/18/17 19:08 25 MLS/HR Metoclopramide HCl (Reglan) 10 mg 1X ONCE 03/18/17 18:30 03/18/17 18:35 DC 03/18/17 19:07 10 MG Sodium Chloride 1,000 ml @ 1,000 mls/hr 1X ONCE 03/18/17 18:30 03/18/17 19:29 DC 03/18/17 19:06 1,000 MLS/HR Allergies Allergies Allergies Coded Allergies Type Severity Reaction Last Updated Verified No Known Drug Allergies 01/09/17 No Physical Exam Physical Exam GEN.: No apparent distress. Alert and oriented. HEENT: Head is normocephalic, atraumatic NECK: Supple. LUNGS: CTAB. HEART: RRR, S1, S2 present. Peripheral pulses intact ABDOMEN: Soft, nontender. Positive bowel sounds. EXTREMITIES: Without any cyanosis. NEUROLOGIC: Normal speech, normal tone, cranial nerves II through XII grossly intact without any focal neurological deficits PSYCHIATRIC: Normal affect, normal mood. SKIN: No ulcerations Current Patient Data Vital Signs Vital Signs Date Time Temp Pulse Resp B/P (MAP) Pulse Ox O2 Delivery O2 Flow Rate FiO2 03/18/17 18:20 98.1 97 20 99 Room Air 98.1 EKG EKG [] Radiology/Procedures Radiology/Procedures CT Head: NAD, no acute intracranial process noted [] Course & Med Decision Making Course & Med Decision Making Pertinent Labs and Imaging studies reviewed. (See chart for details) ED course: Patient was seen and examined emergency room CT scan of the head without contrast was ordered along with 30 mg of Toradol IV, 10 monos Reglan IV, 50 g of Benadryl IV, 5 monos a Haldol IV, 2 g of magnesium sulfate IV, 1 L normal saline bolus 1900: Patient was updated on CT scan of the head and patient is asking for Phenergan and Dilaudid for her migraine headache. How long discussion with the patient regards to utilizing narcotics for treating migraines. Explained to the patient that we will try a nonnarcotic approach to treating her migraine headache and hopefully improve her symptoms and will discharge her home with short-term follow-up with her family doctor or neurologist for further pain management. 1938: Patient reevaluated feeling better but still has a minimal headache. Explained to the patient that once the magnesium has infused we will discharge her home. MDM: After reviewing the chart, CC/HPI/PMH, physical exam, [radiological results], I do not believe the patient has an acute intracranial process warranting further workup and/or admission at this time. Patient has a history of migraine headaches however this headache has presented different than her last migraine headache which was mostly to the left shinto and this headache was bilateral temples. I do not believe the patient's history of present illness and physical exam findings warrant a lumbar puncture to rule out a subarachnoid hematoma. On reevaluation patient is stable for discharge. Additional verbal discharge instructions were provided to the patient and that if symptoms get worse or any new symptoms arise that are worrisome to the patient she is to return to the emergency room immediately [] Dragon Disclaimer Dragon Disclaimer This electronic medical record was generated, in whole or in part, using a voice recognition dictation system. Departure Departure Impression: Primary Impression: Migraine headache Disposition: 01 HOME, SELF-CARE Condition: IMPROVED Referrals: INGRIS FAYE (PCP) Patient Instructions: Migraine Headache, [id number] Additional Instructions: Please follow up with your family doctor in 1-2 days and return if symptoms increase Problem Qualifiers Primary Impression: Migraine headache Migraine type: without aura Status migrainosus presence: without status migrainosus Intractability: not intractable Qualified Codes: G43.009 - Migraine without aura, not intractable, without status migrainosus SIGRID GRECO DO Mar 18, 2017 18:33
--- NOTE | 2017-03-18 18:53 | RAD ---
CT HEAD PQRS STATEMENT: One or more of the following in the visualized dose reduction techniques were utilized for this study: 1. Automatic exposure control, 2. Adjustment of the mA and/or kV according to patient size, 3. Use of iterative reconstruction technique INDICATION: headache TECHNIQUE: 5 mm contiguous axial images were obtained from the skull base to the vertex in both bone and soft tissue algorithm. FINDINGS: No abnormal attenuation within the brain parenchyma. No evidence of intracranial hemorrhage. No extra-axial fluid collections. No mass effect or midline shift. Ventricular size is appropriate. Basal cisterns are patent. No fractures identified.Ospina-white differentiation is preserved.Globes and orbits are within normal limits. Paranasal sinuses and mastoid air cells are clear. IMPRESSION: No acute intracranial abnormality. Electronically signed by: Braden Shea MD (03/18/2017 6:50 PM) [facility]
[2017-03-18 20:30] VITALS: BP 103/63
== END 2017-03-18 20:34 | disposition home or self-care (01) ==
LOC: ER 18:03
DX: G43.909 Migraine, unspecified, not intractable, without status migrainosus (principal); I71.9 Aortic aneurysm of unspecified site, without rupture; Z90.49 Acquired absence of other specified parts of digestive tract; Z90.710 Acquired absence of both cervix and uterus
CPT/HCPCS: 70450; 96365; 96375; 99284; J1200; J1630; J1885; J2765; J7030; J7060

== ENCOUNTER 2017-06-25 15:16 | Emergency (ER) | payer BC ==
[~2017-06-25] VITALS: Ht 162.6 cm; Wt 54.0 kg
[~2017-06-25 15:16] MED LIST changes: +NAPR-683 PO; -NAPR500T PO; +NORT50CA PO
[2017-06-25] MEDS ORDERED: ONDANSETRON PF 4 MG/2 ML VIAL. IV ONE (17:15)
[2017-06-25] MEDS ORDERED: IV NORMAL SALINE 1000ML BAG 1,000 ML IV ONE (17:15)
[2017-06-25 17:26] LABS: BASO # 0.1 x10^3/uL (0.0-0.2); BASO % 1 % (0-3); EOS % 3 % (0-3); HEMATOCRIT 36.2 % (36.0-47.0); HEMOGLOBIN 12.1 g/dL (12.0-15.5); LYMPH % 32 % (24-48); MEAN CORPUSCULAR HEMOGLOBIN 29 pg (25-35); MEAN CORPUSCULAR HGB CONC 33 g/dL (31-37); MEAN CORPUSCULAR VOLUME 88 fL (79-100); MONO % 7 % (0-9); NEUT % 57 % (31-73); PLATELET COUNT 329 x10^3/uL (140-400); RED BLOOD COUNT 4.12 x10^6/uL (3.50-5.40); RED CELL DISTRIBUTION WIDTH 14.6 % (11.5-14.5); WHITE BLOOD COUNT 9.3 x10^3/uL (4.0-11.0)
[2017-06-25 17:27] LABS: BILIRUBIN,URINE NEGATIVE (NEG); GLUCOSE,URINE NEGATIVE (NEG); NITRITE,URINE NEGATIVE (NEG); PROTEIN,URINE NEGATIVE (NEG-TRACE); UROBILINOGEN,URINE 0.2 mg/dL (0.2 mg/dL)
[2017-06-25] MEDS ORDERED: KETOROLAC 30 MG/ML INJ. IV ONE (17:30)
[2017-06-25] MEDS ORDERED: IOHEXOL 300 MG/ML 100ML VIAL. IV ONE (17:30)
[2017-06-25] MEDS ORDERED: CONTRAST GIVEN MC PRN (17:30)
[2017-06-25 17:35] LABS: RBC,URINE 0 /HPF (0-2)
[2017-06-25 17:36] LABS: BACTERIA,URINE MOD /HPF (0-FEW); SQUAMOUS EPITHELIAL CELL,UR MOD /LPF
[2017-06-25 17:46] LABS: CREATININE 1.4 mg/dL (0.6-1.0); GFR 38.8; POTASSIUM 3.1 mmol/L (3.5-5.1)
[2017-06-25 18:06] LABS: ALBUMIN 3.3 g/dL (3.4-5.0); ALBUMIN/GLOBULIN RATIO 0.8 (1.0-1.7); TOTAL BILIRUBIN 0.2 mg/dL (0.2-1.0); TOTAL PROTEIN 7.5 g/dL (6.4-8.2)
[2017-06-25 18:20] VITALS: BP 125/92
--- NOTE | 2017-06-25 19:01 | RAD ---
Indication: Abdominal pain. TECHNIQUE: CT abdomen and pelvis with 60 mL of Omnipaque 300 with multiplanar reformats. COMPARISON: Previous study from 04/08/2017. FINDINGS: Heart is normal in size. No pericardial or pleural effusion. Clear lung bases. Liver is normal in morphology without focal hepatic lesion. Spleen is not enlarged and show no focal lesion. Status post cholecystectomy. Slight interval decrease in amount of pneumobilia. Adrenal glands show no nodularity. Nonobstructing right renal stone. No hydronephrosis. 2 high attenuating partially exophytic lesions are seen in the left kidney the largest measuring 1 cm (series 2 image 24), stable from previous study. The study from 04/11/2015 demonstrated this lesion to measure 1.2 cm. No retroperitoneal or pelvic adenopathy. No inguinal adenopathy. No bowel obstruction. Sigmoid and descending colon diverticulosis. Status post hysterectomy. Bladder within normal limits. No solid adnexal lesions. No suspicious bony lesion. IMPRESSION: 1. No acute findings. 2. Sigmoid and descending colon diverticulosis without diverticulitis. 3. Relatively stable left renal partially exophytic lesions when compared to previous study from 04/11/2015. Continued attention on follow-up. 4. Nonobstructing right renal stone. Electronically signed by: Antwan Tello DO (06/25/2017 6:57 PM) [facility]
--- NOTE | 2017-06-27 05:32 | PHYS DOC ---
Past Medical History Past Medical History: Migraines, Pancreatitis, Other Additional Past Medical Histor: Aortic aneurysm Past Surgical History: Cholecystectomy, Hysterectomy Additional Past Surgical Histo: Shoulder surgery Alcohol Use: Occasionally Drug Use: None Adult General Chief Complaint Chief Complaint: ABDOMINAL PAIN HPI HPI 7-year-old female with a history of chronic pancreatitis and migraines now presents the emergency department complaining of upper abdominal pain. Patient states she think she has pancreatitis again. She denies alcohol abuse. Patient has a history of cholecystectomy as well as hysterectomy and no other chronic abdominal problems. She's had the pain for slightly over a day. She has nausea but no active vomiting. Denies diarrhea. pain is not worse with movement Review of Systems Review of Systems Constitutional: Denies fever or chills [] Eyes: Denies change in visual acuity, redness, or eye pain [] HENT: Denies nasal congestion or sore throat [] Respiratory: Denies cough or shortness of breath [] Cardiovascular: No additional information not addressed in HPI [] GI: Denies abdominal pain, nausea, vomiting, bloody stools or diarrhea [] : Denies dysuria or hematuria [] Musculoskeletal: Denies back pain or joint pain [] Integument: Denies rash or skin lesions [] Neurologic: Denies headache, focal weakness or sensory changes [] Endocrine: Denies polyuria or polydipsia [] All other systems were reviewed and found to be within normal limits, except as documented in this note. Current Medications Current Medications Current Medications Medications (Trade) Dose Ordered Sig/Chad Start Time Stop Time Status Last Admin Dose Admin Info (Do NOT chart on this entry -- for MONITORING) 1 each PRN DAILY PRN 06/25/17 17:30 06/25/17 23:12 DC Iohexol (Omnipaque 300 Mg/ml) 75 ml 1X ONCE 06/25/17 17:30 06/25/17 17:31 DC 06/25/17 17:30 60 ML Ketorolac Tromethamine (Toradol) 30 mg 1X ONCE 06/25/17 17:30 06/25/17 17:31 DC 06/25/17 18:11 30 MG Ondansetron HCl (Zofran) 4 mg 1X ONCE 06/25/17 17:15 06/25/17 17:17 DC 06/25/17 18:11 4 MG Sodium Chloride 1,000 ml @ 999 mls/hr 1X ONCE 06/25/17 17:15 06/25/17 18:15 DC Allergies Allergies Allergies Coded Allergies Type Severity Reaction Last Updated Verified No Known Drug Allergies 01/09/17 No Physical Exam Physical Exam Well-appearing 57-year-old female in no acute distress. Clear lungs regular rate and rhythm no tachycardia minimal epigastric tenderness without guarding or rebound no mass or megaly normal bowel sounds Constitutional: Well developed, well nourished, no acute distress, non-toxic appearance. [] HENT: Normocephalic, atraumatic, bilateral external ears normal, oropharynx moist, no oral exudates, nose normal. [] Eyes: PERRLA, EOMI, conjunctiva normal, no discharge. [] Neck: Normal range of motion, no tenderness, supple, no stridor. [] Cardiovascular:Heart rate regular rhythm, no murmur [] Lungs & Thorax: Bilateral breath sounds clear to auscultation [] Abdomen: As above .no pulsatile masses. [] Skin: Warm, dry, no erythema, no rash. [] Back: No tenderness, no CVA tenderness. [] Extremities: No tenderness, no cyanosis, no clubbing, ROM intact, no edema. [] Neurologic: Alert and oriented X 3, normal motor function, normal sensory function, no focal deficits noted. [] Psychologic: Affect normal, judgement normal, mood normal. [] Current Patient Data Vital Signs Vital Signs Date Time Temp Pulse Resp B/P (MAP) Pulse Ox O2 Delivery O2 Flow Rate FiO2 06/25/17 18:20 88 18 125/92 (103) 99 Room Air 06/25/17 15:31 97.7 97.7 Lab Values Laboratory Tests Test 06/25/17 15:39 06/25/17 15:44 White Blood Count 9.3 x10^3/uL (4.0-11.0) Red Blood Count 4.12 x10^6/uL (3.50-5.40) Hemoglobin 12.1 g/dL (12.0-15.5) Hematocrit 36.2 % (36.0-47.0) Mean Corpuscular Volume 88 fL (79-100) Mean Corpuscular Hemoglobin 29 pg (25-35) Mean Corpuscular Hemoglobin Concent 33 g/dL (31-37) Red Cell Distribution Width 14.6 % (11.5-14.5) H Platelet Count 329 x10^3/uL (140-400) Neutrophils (%) (Auto) 57 % (31-73) Lymphocytes (%) (Auto) 32 % (24-48) Monocytes (%) (Auto) 7 % (0-9) Eosinophils (%) (Auto) 3 % (0-3) Basophils (%) (Auto) 1 % (0-3) Neutrophils # (Auto) 5.3 x10^3uL (1.8-7.7) Lymphocytes # (Auto) 3.0 x10^3/uL (1.0-4.8) Monocytes # (Auto) 0.7 x10^3/uL (0.0-1.1) Eosinophils # (Auto) 0.3 x10^3/uL (0.0-0.7) Basophils # (Auto) 0.1 x10^3/uL (0.0-0.2) Sodium Level 144 mmol/L (136-145) Potassium Level 3.1 mmol/L (3.5-5.1) L Chloride Level 108 mmol/L (98-107) H Carbon Dioxide Level 24 mmol/L (21-32) Anion Gap 12 (6-14) Blood Urea Nitrogen 15 mg/dL (7-20) Creatinine 1.4 mg/dL (0.6-1.0) H Estimated GFR (Cockcroft-Gault) 38.8 BUN/Creatinine Ratio 11 (6-20) Glucose Level 91 mg/dL (70-99) Calcium Level 9.0 mg/dL (8.5-10.1) Total Bilirubin 0.2 mg/dL (0.2-1.0) Aspartate Amino Transferase (AST) 23 U/L (15-37) Alanine Aminotransferase (ALT) 22 U/L (14-59) Alkaline Phosphatase 114 U/L (46-116) Total Protein 7.5 g/dL (6.4-8.2) Albumin 3.3 g/dL (3.4-5.0) L Albumin/Globulin Ratio 0.8 (1.0-1.7) L Lipase 431 U/L (73-393) H Urine Collection Type Unknown Urine Color Yellow Urine Clarity Clear Urine pH 6.[address] >=1.030 Urine Protein Negative mg/dL (NEG-TRACE) Urine Glucose (UA) Negative mg/dL (NEG) Urine Ketones (Stick) Negative mg/dL (NEG) Urine Blood Negative (NEG) Urine Nitrite Negative (NEG) Urine Bilirubin Negative (NEG) Urine Urobilinogen Dipstick 0.2 mg/dL (0.2 mg/dL) Urine Leukocyte Esterase Small (NEG) Urine RBC 0 /HPF (0-2) Urine WBC 11-20 /HPF (0-4) Urine Squamous Epithelial Cells Mod /LPF Urine Bacteria Mod /HPF (0-FEW) Urine Hyaline Casts Moderate /HPF Urine Mucus Mod /LPF Laboratory Tests 06/25/17 15:39 Laboratory Tests 06/25/17 15:39 EKG EKG [] Radiology/Procedures Radiology/Procedures [] Course & Med Decision Making Course & Med Decision Making Pertinent Labs and Imaging studies reviewed. (See chart for details) Signs and symptoms consistent with possible exacerbation of chronic pancreatitis in a well-appearing patient with unremarkable vital signs and a benign appearance and exam. Lipase elevated at 431. Mild renal insufficiency with creatinine 1.4 however essentially unchanged from prior results. Potassium slightly low at 3.1. Patient received CAT scan but was unwilling to wait for results and eloped from the emergency department. [] Dragon Disclaimer Dragon Disclaimer This electronic medical record was generated, in whole or in part, using a voice recognition dictation system. Departure Departure Impression: Primary Impression: Left against medical advice Additional Impressions: Abdominal pain Pancreatitis Disposition: AGAINST MEDICAL ADVICE Condition: STABLE Referrals: INGRIS FAYE (PCP) Problem Qualifiers APRIL GROSS MD Jun 27, 2017 05:32
== END 2017-06-25 19:06 | disposition left against medical advice (07) ==
LOC: ER 15:16
DX: K85.90 Acute pancreatitis without necrosis or infection, unspecified (principal); G43.909 Migraine, unspecified, not intractable, without status migrainosus; Z90.49 Acquired absence of other specified parts of digestive tract; Z90.710 Acquired absence of both cervix and uterus
CPT/HCPCS: 36415; 74177; 80053; 81001; 83690; 85025; 96374; 96375; 99285; J1885; J2405; Q9967

== ENCOUNTER 2017-07-16 21:32 | Emergency (ER) | payer BC ==
[~2017-07-16] VITALS: Ht 162.6 cm; Wt 56.7 kg
--- NOTE | 2017-07-16 22:53 | PHYS DOC ---
Past Medical History Past Medical History: Migraines, Pancreatitis, Other Additional Past Medical Histor: Aortic aneurysm Past Surgical History: Cholecystectomy, Hysterectomy Additional Past Surgical Histo: Shoulder surgery Alcohol Use: Occasionally Drug Use: None Adult General Chief Complaint Chief Complaint: ABDOMINAL PAIN HPI HPI Patient is a 57 year old female who presents with left upper quadrant pain. She states this started yesterday the pains been getting worse. It was an 8 out of 10 and she had an IV pain meds thousand 6 out of 10. She states it feels like her normal pancreatic pain except for now she is having nausea and vomiting. She states she has a history of abdominal and thoracic aortic aneurysm which she is followed by cardiology. Review of Systems Review of Systems Constitutional: Denies fever or chills [] Eyes: Denies change in visual acuity, redness, or eye pain [] HENT: Denies nasal congestion or sore throat [] Respiratory: Denies cough or shortness of breath [] Cardiovascular: No additional information not addressed in HPI [] GI: Positive for abdominal pain, nausea, vomiting, Denies bloody stools or diarrhea [] : Denies dysuria or hematuria [] Musculoskeletal: Denies back pain or joint pain [] Integument: Denies rash or skin lesions [] Neurologic: Denies headache, focal weakness or sensory changes [] Endocrine: Denies polyuria or polydipsia [] All other systems were reviewed and found to be within normal limits, except as documented in this note. Current Medications Current Medications Current Medications Medications (Trade) Dose Ordered Sig/Chad Start Time Stop Time Status Last Admin Dose Admin Morphine Sulfate 2 mg PRN Q15MIN PRN 07/16/17 23:00 07/17/17 05:28 DC 07/17/17 02:28 2 MG Ondansetron HCl (Zofran) 4 mg 1X ONCE 07/16/17 23:00 07/16/17 23:01 DC 07/16/17 23:17 4 MG Sodium Chloride 1,000 ml @ 1,000 mls/hr Q1H 07/16/17 23:00 07/16/17 23:59 DC 07/16/17 23:17 1,000 MLS/HR Allergies Allergies Allergies Coded Allergies Type Severity Reaction Last Updated Verified No Known Drug Allergies 01/09/17 No Physical Exam Physical Exam Constitutional: Well developed, well nourished, no acute distress, non-toxic appearance. [] HENT: Normocephalic, atraumatic, bilateral external ears normal, oropharynx moist, no oral exudates, nose normal. [] Eyes: PERRLA, EOMI, conjunctiva normal, no discharge. [] Neck: Normal range of motion, no tenderness, supple, no stridor. [] Cardiovascular:Heart rate regular rhythm, no murmur [] Lungs & Thorax: Bilateral breath sounds clear to auscultation [] Abdomen: Bowel sounds normal, soft, tender to palpation left upper quadrant, no rebound or guarding, no masses, no pulsatile masses. [] Skin: Warm, dry, no erythema, no rash. [] Back: No tenderness, no CVA tenderness. [] Extremities: No tenderness, no cyanosis, no clubbing, ROM intact, no edema. [] Neurologic: Alert and oriented X 3, normal motor function, normal sensory function, no focal deficits noted. [] Psychologic: Affect normal, judgement normal, mood normal. [] Current Patient Data Vital Signs Vital Signs Date Time Temp Pulse Resp B/P (MAP) Pulse Ox O2 Delivery O2 Flow Rate FiO2 07/17/17 02:30 75 17 116/74 (88) 99 Room Air 07/16/17 22:40 97.6 97.6 Lab Values Laboratory Tests Test 07/16/17 22:15 07/16/17 22:45 07/16/17 23:10 Urine Collection Type Unknown Urine Color Yellow Urine Clarity Clear Urine pH 6.5 Urine Specific [place] 1.020 Urine Protein Negative mg/dL (NEG-TRACE) Urine Glucose (UA) Negative mg/dL (NEG) Urine Ketones (Stick) Negative mg/dL (NEG) Urine Blood Negative (NEG) Urine Nitrite Negative (NEG) Urine Bilirubin Negative (NEG) Urine Urobilinogen Dipstick 0.2 mg/dL (0.2 mg/dL) Urine Leukocyte Esterase Small (NEG) Urine RBC Occ /HPF (0-2) Urine WBC 1-4 /HPF (0-4) Urine Squamous Epithelial Cells Few /LPF Urine Bacteria 0 /HPF (0-FEW) Urine Mucus Slight /LPF Urine Test Negative (NEG) Urine Opiates Screen Neg (NEG) Urine Methadone Screen Neg (NEG) Urine Barbiturates Neg (NEG) Urine Phencyclidine Screen Neg (NEG) Urine Amphetamine/Methamphetamine Neg (NEG) Urine Benzodiazepines Screen Neg (NEG) Urine Cocaine Screen Neg (NEG) Urine Cannabinoids Screen Neg (NEG) Urine Ethyl Alcohol Neg (NEG) White Blood Count 7.8 x10^3/uL (4.0-11.0) Red Blood Count 4.00 x10^6/uL (3.50-5.40) Hemoglobin 11.6 g/dL (12.0-15.5) L Hematocrit 34.7 % (36.0-47.0) L Mean Corpuscular Volume 87 fL (79-100) Mean Corpuscular Hemoglobin 29 pg (25-35) Mean Corpuscular Hemoglobin Concent 33 g/dL (31-37) Red Cell Distribution Width 15.1 % (11.5-14.5) H Platelet Count 257 x10^3/uL (140-400) Neutrophils (%) (Auto) 51 % (31-73) Lymphocytes (%) (Auto) 36 % (24-48) Monocytes (%) (Auto) 9 % (0-9) Eosinophils (%) (Auto) 4 % (0-3) H Basophils (%) (Auto) 1 % (0-3) Neutrophils # (Auto) 4.0 x10^3uL (1.8-7.7) Lymphocytes # (Auto) 2.8 x10^3/uL (1.0-4.8) Monocytes # (Auto) 0.7 x10^3/uL (0.0-1.1) Eosinophils # (Auto) 0.3 x10^3/uL (0.0-0.7) Basophils # (Auto) 0.1 x10^3/uL (0.0-0.2) Prothrombin Time 12.8 SEC (11.7-14.0) Prothrombin Time INR 1.0 (0.8-1.1) PTT 29 SEC (24-38) Sodium Level 140 mmol/L (136-145) Potassium Level 3.1 mmol/L (3.5-5.1) L Chloride Level 105 mmol/L (98-107) Carbon Dioxide Level 23 mmol/L (21-32) Anion Gap 12 (6-14) Blood Urea Nitrogen 18 mg/dL (7-20) Creatinine 1.3 mg/dL (0.6-1.0) H Estimated GFR (Cockcroft-Gault) 42.2 Glucose Level 96 mg/dL (70-99) Calcium Level 9.2 mg/dL (8.5-10.1) Total Bilirubin 0.2 mg/dL (0.2-1.0) Direct Bilirubin < 0.1 mg/dL (0.0-0.2) Aspartate Amino Transferase (AST) 16 U/L (15-37) Alanine Aminotransferase (ALT) 18 U/L (14-59) Alkaline Phosphatase 103 U/L (46-116) Creatine Kinase 76 U/L (26-192) Creatine Kinase MB (Mass) < 0.5 ng/mL (0.0-3.6) Creatine Kinase MB Relative Index 0.7 % (0-4) Troponin I Quantitative < 0.017 ng/mL (0.000-0.055) Total Protein 7.4 g/dL (6.4-8.2) Albumin 3.4 g/dL (3.4-5.0) Lipase 284 U/L (73-393) POC Urine HCG, Qualitative Hcg negative (Negative) Laboratory Tests 07/16/17 22:45 Laboratory Tests 07/16/17 22:45 EKG EKG EKG shows sinus rhythm with a [address] elevations or T-wave inversions, normal axis, QTC 425 ms, as interpreted by me. Radiology/Procedures Radiology/Procedures [facility] [address] [place] [address] IMAGING REPORT Signed PATIENT: HPAM SONG ACCOUNT: [id number] : 1960 LOCATION: ER AGE: 57 SEX: F EXAM STATUS: REG ER ORD. PHYSICIAN: YAS MALLOY MD REASON: luq pain with hx of AAA PROCEDURE: ABDOMEN COMPLETE INDICATION : LUQ PAIN COMPARISON: June 25, 2017 CT abdomen TECHNIQUE: Multiple ultrasound images obtained through the abdomen in grayscale and color. FINDINGS: Liver: Echotexture within normal limits in visualized portions of liver. Gallbladder: Removed IVC: Partially distended at level of liver. Common Bile Duct: Not well seen Pancreas: Poorly seen Bilateral Kidney: No hydronephrosis. Hypoechoic lesion left kidney measuring 11 mm with possible septation Spleen unremarkable. IMPRESSION: 1. No definite hydronephrosis. 2. Suspected small hypoechoic lesion left kidney. Could be secondary to a complex cystic lesion but cannot exclude a small solid component. Continued follow-up will be needed to ensure no growth. If more definitive characterization is desired renal MRI could better evaluate Electronically signed by: Anna Capone MD (07/17/2017 2:29 AM) [facility] DICTATED and SIGNED BY: ANNA CAPONE MD DATE: 07/17/17225 CC: YAS MALLOY MD; INGRIS FAYE ~ [facility] [address] [place] [address] IMAGING REPORT Signed PATIENT: PHAM SONG ACCOUNT: [id number] : 1960 LOCATION: ER AGE: 57 SEX: F EXAM STATUS: REG ER ORD. PHYSICIAN: YAS MALLOY MD REASON: abd pain, hx of pancreatitis and AAA PROCEDURE: CT ABDOMEN PELVIS WO CONTRAST INDICATION: LUQ PAIN; HX PANCREATITIS COMPARISON: June 25, 2017 TECHNIQUE: Axial CT images obtained through the without. Limited assessment of solid organ structures and vasculature secondary to lack of intravenous contrast. One or more of the following individualized dose reduction techniques were utilized for this examination: 1. Automated exposure control; 2. Adjustment of the mA and/or kV according to patient size; 3. Use of iterative reconstruction technique. FINDINGS: Mild probable atelectasis at lung bases. Mild calcific atherosclerosis. There is some tubular region of air seen within the liver which could be from pneumobilia. This was also present on prior. Postcholecystectomy. Poor evaluation of the pancreas without contrast. No definite adjacent fluid collection is seen. Spleen unremarkable. Exophytic lesion of left kidney measuring up to about 10 mm. Additional suspected exophytic lesion left kidney measuring up to about 12 mm. Bilateral nonobstructive renal stones. No left-sided hydronephrosis. Urinary bladder is distended with urine at time of exam. No right-sided hydronephrosis. Colonic diverticulosis. Appendix is not well seen. No dilated loops of bowel to suggest obstruction. Degenerative changes the spine with mild scoliotic curvature. Grade 1 anterolisthesis of L5 on S1. IMPRESSION: No evidence of bowel obstruction. Bilateral nonobstructive renal stones without hydronephrosis. There are couple of exophytic left renal lesions which do not have the appearance of simple cysts. These have been present since at least 2014 but incompletely characterized on this exam. Could be a complex cystic lesion with debris but solid lesion not excluded. If more complete characterization is desired follow-up MRI renal protocol could further evaluate. Electronically signed by: Anna Capone MD (07/17/2017 4:33 AM) [facility] DICTATED and SIGNED BY: ANNA CAPONE MD DATE: 07/17/17 0406 CC: YAS MALLOY MD; INGRIS FAYE ~ Impressions: abdominal pain Course & Med Decision Making Course & Med Decision Making Pertinent Labs and Imaging studies reviewed. (See chart for details) Labs and ultrasound of abdomen pelvis did not show any acute abnormalities. She tells me that she's had a AAA before and is being monitored since the ultrasound didn't show anything asked for a CT abdomen and pelvis without contrast because she has renal failure 3 performed. This also did not see any acute abnormalities. Patient is requesting pain medicines go home and review of her chart shows that she presents with abdominal pain frequently and goes home with narcotics. I did give her a few tablets of Girard and instructed to follow- up with her primary care physician. Return precautions given. She is agreeable plan and she's been discharged stable condition this time. Dragon Disclaimer Dragon Disclaimer This electronic medical record was generated, in whole or in part, using a voice recognition dictation system. Departure Departure Impression: Primary Impression: Abdominal pain Disposition: 01 HOME, SELF-CARE Condition: STABLE Referrals: INGRIS FAYE (PCP) Patient Instructions: Abdominal Pain Additional Instructions: Your EKG, blood work and other studies do not show any acute abnormality's. Your being discharged home. Please follow up her primary care physician. Return back to ER if your pain gets worse you have other concerns. Being discharged with Girard. Please don't drink alcohol or drive while taking this medicine. YAS MALLOY MD Jul 16, 2017 22:53
[2017-07-16] MEDS ORDERED: IV NORMAL SALINE 1000ML BAG 1,000 ML IV SCH (23:00)
[2017-07-16] MEDS ORDERED: ONDANSETRON PF 4 MG/2 ML VIAL. IV ONE (23:00)
[2017-07-16 23:13] LABS: BASO # 0.1 x10^3/uL (0.0-0.2); BASO % 1 % (0-3); EOS % 4 % (0-3); HEMATOCRIT 34.7 % (36.0-47.0); HEMOGLOBIN 11.6 g/dL (12.0-15.5); LYMPH # 2.8 x10^3/uL (1.0-4.8); LYMPH % 36 % (24-48); MEAN CORPUSCULAR HEMOGLOBIN 29 pg (25-35); MEAN CORPUSCULAR HGB CONC 33 g/dL (31-37); MEAN CORPUSCULAR VOLUME 87 fL (79-100); MONO % 9 % (0-9); NEUT % 51 % (31-73); PLATELET COUNT 257 x10^3/uL (140-400); RED CELL DISTRIBUTION WIDTH 15.1 % (11.5-14.5); WHITE BLOOD COUNT 7.8 x10^3/uL (4.0-11.0)
[2017-07-16] MEDS: MORPHINE SULFATE 2 MG/ML DISP.SYRIN. IV/SQ PRN ×2 (23:18→23:59)
[2017-07-16 23:19] LABS: BILIRUBIN,URINE NEGATIVE (NEG); GLUCOSE,URINE NEGATIVE (NEG); NITRITE,URINE NEGATIVE (NEG); PH,URINE 6.5; PROTEIN,URINE NEGATIVE (NEG-TRACE); UROBILINOGEN,URINE 0.2 mg/dL (0.2 mg/dL)
[2017-07-16 23:21] LABS: NEG OBC UR NEG; POS OBC UR POS
[2017-07-16 23:23] LABS: BARBITURATES NEG (NEG); BENZODIAZEPINES NEG (NEG); CANNABINOIDS NEG (NEG); COCAINE NEG (NEG); METHADONE NEG (NEG); OPIATES NEG (NEG); PHENCYCLIDINE NEG (NEG)
[2017-07-16 23:23] LABS: ANION GAP 12 (6-14); BLOOD UREA NITROGEN 18 mg/dL (7-20); CALCIUM 9.2 mg/dL (8.5-10.1); CARBON DIOXIDE 23 mmol/L (21-32); CHLORIDE 105 mmol/L (98-107); CREATININE 1.3 mg/dL (0.6-1.0); GFR 42.2; GLUCOSE 96 mg/dL (70-99); POTASSIUM 3.1 mmol/L (3.5-5.1); PROTHROMBIN TIME PATIENT 12.8 SEC (11.7-14.0); SODIUM 140 mmol/L (136-145)
[2017-07-16 23:26] LABS: BACTERIA,URINE 0 /HPF (0-FEW); RBC,URINE OCC /HPF (0-2); SQUAMOUS EPITHELIAL CELL,UR FEW /LPF
[2017-07-16 23:29] LABS: ALBUMIN 3.4 g/dL (3.4-5.0); ALK PHOS 103 U/L (46-116); ALT (SGPT) 18 U/L (14-59); AST (SGOT) 16 U/L (15-37); DIRECT BILIRUBIN < 0.1 mg/dL (0.0-0.2); TOTAL BILIRUBIN 0.2 mg/dL (0.2-1.0); TOTAL PROTEIN 7.4 g/dL (6.4-8.2)
[2017-07-16 23:38] LABS: CKMB MASS < 0.5 ng/mL (0.0-3.6); CREATINE KINASE 76 U/L (26-192)
[2017-07-17] MEDS: MORPHINE SULFATE 2 MG/ML DISP.SYRIN. IV/SQ PRN (02:28)
[2017-07-17 02:30] VITALS: BP 116/74
--- NOTE | 2017-07-17 02:33 | RAD ---
INDICATION : LUQ PAIN COMPARISON: June 25, 2017 CT abdomen TECHNIQUE: Multiple ultrasound images obtained through the abdomen in grayscale and color. FINDINGS: Liver: Echotexture within normal limits in visualized portions of liver. Gallbladder: Removed IVC: Partially distended at level of liver. Common Bile Duct: Not well seen Pancreas: Poorly seen Bilateral Kidney: No hydronephrosis. Hypoechoic lesion left kidney measuring 11 mm with possible septation Spleen unremarkable. IMPRESSION: 1. No definite hydronephrosis. 2. Suspected small hypoechoic lesion left kidney. Could be secondary to a complex cystic lesion but cannot exclude a small solid component. Continued follow-up will be needed to ensure no growth. If more definitive characterization is desired renal MRI could better evaluate Electronically signed by: Johann Ferrell MD (07/17/2017 2:29 AM) [facility]
--- NOTE | 2017-07-17 04:37 | RAD ---
INDICATION: LUQ PAIN; HX PANCREATITIS COMPARISON: June 25, 2017 TECHNIQUE: Axial CT images obtained through the without. Limited assessment of solid organ structures and vasculature secondary to lack of intravenous contrast. One or more of the following individualized dose reduction techniques were utilized for this examination: 1. Automated exposure control; 2. Adjustment of the mA and/or kV according to patient size; 3. Use of iterative reconstruction technique. FINDINGS: Mild probable atelectasis at lung bases. Mild calcific atherosclerosis. There is some tubular region of air seen within the liver which could be from pneumobilia. This was also present on prior. Postcholecystectomy. Poor evaluation of the pancreas without contrast. No definite adjacent fluid collection is seen. Spleen unremarkable. Exophytic lesion of left kidney measuring up to about 10 mm. Additional suspected exophytic lesion left kidney measuring up to about 12 mm. Bilateral nonobstructive renal stones. No left-sided hydronephrosis. Urinary bladder is distended with urine at time of exam. No right-sided hydronephrosis. Colonic diverticulosis. Appendix is not well seen. No dilated loops of bowel to suggest obstruction. Degenerative changes the spine with mild scoliotic curvature. Grade 1 anterolisthesis of L5 on S1. IMPRESSION: No evidence of bowel obstruction. Bilateral nonobstructive renal stones without hydronephrosis. There are couple of exophytic left renal lesions which do not have the appearance of simple cysts. These have been present since at least 2014 but incompletely characterized on this exam. Could be a complex cystic lesion with debris but solid lesion not excluded. If more complete characterization is desired follow-up MRI renal protocol could further evaluate. Electronically signed by: Johann Ferrell MD (07/17/2017 4:33 AM) [facility]
--- NOTE | 2017-07-17 06:31 | EKG ---
[facility] [address] [place] [address] Test Date: 2017-07-16 Test Time: 23:14:07 Pat Name: PHAM SONG Department: Room: Gender: F Hammerer: : 1960 Requested By: YAS MALLOY Order Number: [id number] Reading MD: Measurements Intervals Kinder Rate: 65 P: 53 MD: 190 QRS: 36 QRSD: 76 T: 51 QT: 412 QTc: 429 Interpretive Statements SINUS RHYTHM NORMAL ECG RI6.01 No previous ECG available for comparison
== END 2017-07-17 05:21 | disposition home or self-care (01) ==
LOC: ER 21:32
DX: R10.12 Left upper quadrant pain (principal); R11.2 Nausea with vomiting, unspecified; I71.4 Abdominal aortic aneurysm, without rupture; G43.909 Migraine, unspecified, not intractable, without status migrainosus; Z90.49 Acquired absence of other specified parts of digestive tract; Z90.710 Acquired absence of both cervix and uterus
CPT/HCPCS: 36415; 74176; 76700; 80048; 80076; 80307; 81001; 81025; 82553; 83690; 84484; 85025; 85610; 85730; 87086; 93005; 96361; 96374; 96375; 99285; J2270; J2405; J7030; G0479

== ENCOUNTER → 2017-07-23 | Outpatient (CLI) | payer BC ==
[2017-07-17 02:30] VITALS: BP 116/74
[~2017-07-23] MED LIST changes: +MAG HYDROX/ALUMINUM HYD/SIMETH 30 ML ORAL.SUSP PO ONE
--- NOTE | 2017-07-24 14:11 | SLEEP ---
DATE OF STUDY: 07/23/2017 ATTENDING PHYSICIAN: Dr. Ingris Logan. The patient is a 57-year-old who weighs 125 pounds with a BMI of 22. The patient's Arkoma score was 10. Sleep study was performed at [facility]. This was a diagnostic study. During the night study, the patient spent 412 minutes in bed and slept for 313 minutes with a sleep efficiency of 76%. Sleep latency was 6 minutes with absent REM sleep. Overall, sleep architecture showed increased stage I and stage II sleep, absent slow wave and absent REM sleep. During the night study, the patient had 7 obstructive apneas, 13 mixed and no central apneas. There were 9 hypopneas. The patient's apnea hypopnea index was 6 per hour, supine index 7 per hour and absent REM index due to lack of REM sleep. Review of nocturnal oximetry study revealed no clinically significant desaturations. Mean oxygen saturations were 90% with the lowest of 89%. PLMs were seen at index of 1 per hour and none caused EEG arousals. EKG monitoring revealed normal sinus rhythm, average heart rate was 71 beats per minute. Due to low AHI, the patient did not meet the split night criteria for CPAP initiation. IMPRESSION: 1. Mild sleep apnea-hypopnea syndrome at an apnea hypopnea index of 6 per hour. 2. No clinically significant nocturnal hypoxia. 3. No clinically significant periodic limb movements. RECOMMENDATIONS: 1. The patient did not meet the split night criteria for CPAP initiation. 2. Avoid [employer] depressants. 3. Caution regarding driving until hypersomnia is resolved. 4. If clinical suspicion for narcolepsy or idiopathic hypersomnia is high, then consider doing multiple sleep latency tests. JILL LOCKE MD DR: ESME/cathleen JOB#: [id number] / [id number] INGRIS Cosme MD
== END | disposition home or self-care (01) ==
LOC: SLPLAB 18:21
PROVIDERS: ATTEND Internal Medicine
DX: G47.33 Obstructive sleep apnea (adult) (pediatric) (principal)
CPT/HCPCS: 95810

== ENCOUNTER → 2017-07-26 | Outpatient (CLI) | payer BC ==
[2017-07-17 02:30] VITALS: BP 116/74
[~2017-07-26] MED LIST changes: -MAG HYDROX/ALUMINUM HYD/SIMETH 30 ML ORAL.SUSP PO ONE
--- NOTE | 2017-07-26 12:43 | RAD ---
Carotid ultrasound, 07/26/2017: History: Atherosclerosis, jugular venous distention Duplex evaluation of the carotid arteries in the neck was performed including grayscale, color-flow and spectral Doppler analysis. There is only minimal intimal thickening and smooth plaquing bilaterally. The Doppler data obtained from the bifurcations reveals no significant focal velocity elevation to suggest significant stenosis. The peak systolic velocity in the right internal carotid artery is 63 cm/s with an end-diastolic velocity of 31 cm/s. The peak systolic velocity in the left internal carotid artery is 76 cm/s with an end-diastolic velocity of 25 cm/s. Antegrade flow is present in both vertebral arteries in the neck. IMPRESSION: No duplex evidence of significant carotid stenosis in the neck. Note: Stenosis calculations for CTA, MRA and conventional angiography are based upon determination of the distal ICA diameter in accordance with the NASCET methodology. Stenosis calculations for Doppler studies are derived from validated velocity criteria which are known to correlate with NASCET methodology of determining stenosis.
--- NOTE | 2017-07-27 11:31 | CARD ---
APPROVED REPORT EXAM: Two-dimensional and M-mode echocardiogram with Doppler and color Doppler. Other Information Quality : GoodHR: 76bpm INDICATION Jugular venous distension 2D DIMENSIONS Left Atrium(2D)2.4 (1.6-4.0cm)IVSd0.8 (0.7-1.1cm) Aortic Root(2D)3.4 (2.0-3.7cm)LVDd4.0 (3.9-5.9cm) LVOT Diameter2.0 (1.8-2.4cm)PWd0.8 (0.7-1.1cm) LVDs2.5 (2.5-4.0cm)FS (%) 36.7 % SV45.9 mlLVEF(%)67.2 (>50%) Aortic Valve AoV Peak Jordan.152.5cm/sAoV VTI31.1cm AO Peak GR.9.3mmHgLVOT Peak Jordan.113.7cm/s AO Mean GR.5mmHgAVA (VMAX)2.27cm2 Mitral Valve MV E Azlrsoin45.1cm/sMV DECEL JOFJ061ca MV A Ifyigsrr51.2cm/sE/A Ratio0.8 Pulmonary Valve PV Peak Qgjoadqg253.4cm/s Pulmonary Vein S1 Ruusmlwh30.5cm/sD2 Ramvnyan72.1cm/s LEFT VENTRICLE The left ventricle is normal size. There is normal left ventricular wall thickness. The left ventricu lar systolic function is normal and the ejection fraction is within normal range. EF 60% There is nor mal LV segmental wall motion. Transmitral Doppler flow pattern is Grade I-abnormal relaxation pattern . RIGHT VENTRICLE The right ventricle is normal size. The right ventricular systolic function is normal. ATRIA The left atrium size is normal. The right atrium size is normal. The interatrial septum is intact wit h no evidence for an atrial septal defect or patent foramen ovale as noted on 2-D or Doppler imaging. AORTIC VALVE The aortic valve is normal in structure and function. Doppler and Color Flow revealed no significant aortic regurgitation. There is no significant aortic valvular stenosis. There is no aortic valvular v egetation. MITRAL VALVE The mitral valve is normal in structure and function. There is no evidence of mitral valve prolapse. There is no mitral valve stenosis. Doppler and Color Flow revealed no mitral valve regurgitation note d. TRICUSPID VALVE The tricuspid valve is normal in structure and function. Doppler and Color Flow revealed no tricuspid valve regurgitation noted. There is no tricuspid valve prolapse or vegetation. There is no tricuspid valve stenosis. PULMONIC VALVE Doppler and Color Flow revealed no pulmonic valvular regurgitation. There is no pulmonic valvular kathie nosis. GREAT VESSELS There is borderline aortic root dilatation (3.6cm). There is mild accending aorta dilatation (3.9 cm) . The IVC is normal in size and collapses >50% with inspiration. PERICARDIAL EFFUSION There is no pleural effusion. There is no evidence of significant pericardial effusion. Critical Notification Critical Value: No <Conclusion> The left ventricular systolic function is normal and the ejection fraction is within normal range. EF 60% There is normal LV segmental wall motion. There is borderline aortic root dilatation (3.6cm). There is mild accending aorta dilatation (3.9 cm) .
== END | disposition home or self-care (01) ==
LOC: ECHO 08:55
PROVIDERS: ATTEND Internal Medicine
DX: I71.4 Abdominal aortic aneurysm, without rupture (principal); R09.89 Other specified symptoms and signs involving the circulatory and respiratory systems
CPT/HCPCS: 93306; 93880

== ENCOUNTER 2017-08-26 11:35 | Emergency (ER) | payer OTHER, BC ==
[2017-08-26 12:33] LABS: ADD MAN DIFF? NO
[2017-08-26] MEDS: ONDANSETRON PF 4 MG/2 ML VIAL. IV (12:33)
[2017-08-26] MEDS: fentaNYL PF VIAL 100 MCG/2 ML VIAL IV ×2 (12:34→13:08)
[2017-08-26 12:36] LABS: BASO # 0.1 x10^3/uL (0.0-0.2); BASO % 1 % (0-3); EOS # 0.1 x10^3/uL (0.0-0.7); EOS % 1 % (0-3); HEMATOCRIT 34.6 % (36.0-47.0); HEMOGLOBIN 11.2 g/dL (12.0-15.5); LYMPH # 1.3 x10^3/uL (1.0-4.8); LYMPH % 14 % (24-48); MEAN CORPUSCULAR HEMOGLOBIN 28 pg (25-35); MEAN CORPUSCULAR HGB CONC 33 g/dL (31-37); MEAN CORPUSCULAR VOLUME 87 fL (79-100); MONO # 0.6 x10^3/uL (0.0-1.1); MONO % 6 % (0-9); NEUT # 7.1 x10^3uL (1.8-7.7); NEUT % 77 % (31-73); PLATELET COUNT 361 x10^3/uL (140-400); RED BLOOD COUNT 3.99 x10^6/uL (3.50-5.40); RED CELL DISTRIBUTION WIDTH 15.5 % (11.5-14.5); WHITE BLOOD COUNT 9.3 x10^3/uL (4.0-11.0)
[2017-08-26] MEDS: IV NORMAL SALINE 1000ML BAG 1,000 ML IV (12:36)
[2017-08-26 12:43] LABS: ANION GAP 14 (6-14); BLOOD UREA NITROGEN 11 mg/dL (7-20); BUN/CREATININE RATIO 10 (6-20); CALCIUM 8.8 mg/dL (8.5-10.1); CARBON DIOXIDE 20 mmol/L (21-32); CHLORIDE 107 mmol/L (98-107); CREATININE 1.1 mg/dL (0.6-1.0); GFR 51.2; GLUCOSE 116 mg/dL (70-99); POTASSIUM 3.5 mmol/L (3.5-5.1); SODIUM 141 mmol/L (136-145)
[2017-08-26 12:49] LABS: ALBUMIN 3.4 g/dL (3.4-5.0); ALBUMIN/GLOBULIN RATIO 0.8 (1.0-1.7); ALK PHOS 116 U/L (46-116); ALT (SGPT) 16 U/L (14-59); AST (SGOT) 21 U/L (15-37); LIPASE 134 U/L (73-393); TOTAL BILIRUBIN 0.2 mg/dL (0.2-1.0); TOTAL PROTEIN 7.6 g/dL (6.4-8.2)
== END 2017-08-26 13:49 | disposition home or self-care (01) ==
LOC: ER 11:35
DX: R10.9 Unspecified abdominal pain (principal); R11.2 Nausea with vomiting, unspecified; R19.7 Diarrhea, unspecified; G43.909 Migraine, unspecified, not intractable, without status migrainosus; Z90.49 Acquired absence of other specified parts of digestive tract; Z90.710 Acquired absence of both cervix and uterus; Z98.890 Other specified postprocedural states
CPT/HCPCS: 36415; 80053; 83690; 85025; 96361; 96374; 96375; 96376; 99285-25; J2405; J3010; J7030

== ENCOUNTER 2017-11-08 05:14 | Emergency (ER) | payer OTHER, BC | END 2017-11-08 06:30 | disposition home or self-care (01) | LOC: ER 05:14 | DX: G89.29 Other chronic pain (principal); M54.2 Cervicalgia; R51 Headache; G43.909 Migraine, unspecified, not intractable, without status migrainosus | CPT/HCPCS: 99284 ==

== ENCOUNTER 2017-12-24 01:21 | Emergency (ER) | payer OTHER ==
[2017-12-24] MEDS: ONDANSETRON PF 4 MG/2 ML VIAL. IV ×2 (02:21→03:00)
[2017-12-24] MEDS: MORPHINE SULFATE 4 MG/ML DISP.SYRIN. IV (02:21)
[2017-12-24] MEDS: IV NORMAL SALINE 1000ML BAG 1,000 ML IV (02:21)
[2017-12-24] MEDS ORDERED: CONTRAST GIVEN MC (02:30)
[2017-12-24 02:38] LABS: ADD MAN DIFF? NO
[2017-12-24 02:42] LABS: BASO # 0.1 x10^3/uL (0.0-0.2); BASO % 1 % (0-3); BILIRUBIN,URINE NEGATIVE (NEG); CLARITY,URINE CLEAR; COLOR,URINE YELLOW; EOS # 0.2 x10^3/uL (0.0-0.7); EOS % 3 % (0-3); GLUCOSE,URINE NEGATIVE (NEG); HEMATOCRIT 33.4 % (36.0-47.0); HEMOGLOBIN 11.4 g/dL (12.0-15.5); LYMPH % 28 % (24-48); MEAN CORPUSCULAR HEMOGLOBIN 29 pg (25-35); MEAN CORPUSCULAR HGB CONC 34 g/dL (31-37); MEAN CORPUSCULAR VOLUME 87 fL (79-100); MONO # 0.5 x10^3/uL (0.0-1.1); MONO % 8 % (0-9); NEUT # 4.4 x10^3uL (1.8-7.7); NEUT % 61 % (31-73); NITRITE,URINE NEGATIVE (NEG); PLATELET COUNT 300 x10^3/uL (140-400); PROTEIN,URINE NEGATIVE (NEG-TRACE); RED BLOOD COUNT 3.87 x10^6/uL (3.50-5.40); WHITE BLOOD COUNT 7.2 x10^3/uL (4.0-11.0)
[2017-12-24 02:48] LABS: BACTERIA,URINE MODERATE /HPF (0-FEW); RBC,URINE OCC /HPF (0-2); SQUAMOUS EPITHELIAL CELL,UR MOD /LPF
[2017-12-24 02:53] LABS: ALBUMIN 3.1 g/dL (3.4-5.0); ALBUMIN/GLOBULIN RATIO 0.8 (1.0-1.7); ALK PHOS 87 U/L (46-116); ALT (SGPT) 18 U/L (14-59); ANION GAP 14 (6-14); AST (SGOT) 13 U/L (15-37); BLOOD UREA NITROGEN 13 mg/dL (7-20); BUN/CREATININE RATIO 10 (6-20); CALCIUM 8.6 mg/dL (8.5-10.1); CARBON DIOXIDE 23 mmol/L (21-32); CHLORIDE 112 mmol/L (98-107); CREATININE 1.3 mg/dL (0.6-1.0); GFR 42.2; GLUCOSE 108 mg/dL (70-99); LIPASE 258 U/L (73-393); SODIUM 149 mmol/L (136-145); TOTAL BILIRUBIN 0.2 mg/dL (0.2-1.0); TOTAL PROTEIN 6.8 g/dL (6.4-8.2)
[2017-12-24] MEDS: fentaNYL PF VIAL 100 MCG/2 ML VIAL IV (03:00)
[2017-12-24] MEDS: IOHEXOL 300 MG/ML 100ML VIAL. IV (03:05)
[2017-12-24] MEDS: cefTRIAXone IV Push 1 GM VIAL. IVP (03:50)
[2017-12-24] MEDS: POTASSIUM CHLORIDE 20 MEQ TABLET.ER. PO ×2 (03:50→03:59)
[2017-12-25] MEDS ORDERED: cefTRIAXone IV Push 1 GM VIAL. IVP (06:00)
== END 2017-12-24 04:50 | disposition home or self-care (01) ==
LOC: ER 01:21
DX: N39.0 Urinary tract infection, site not specified (principal); E87.6 Hypokalemia; G43.909 Migraine, unspecified, not intractable, without status migrainosus; Z90.710 Acquired absence of both cervix and uterus; Z90.49 Acquired absence of other specified parts of digestive tract; F17.200 Nicotine dependence, unspecified, uncomplicated
CPT/HCPCS: 36415; 74177; 80053; 81001; 83690; 85025; 87086; 96361; 96374; 96375; 96376; 99285-25; J0696; J2270; J2405; J3010; J7030; Q9967

== ENCOUNTER 2018-05-10 04:08 | Emergency (ER) | payer SELFPAY ==
[~2018-05-10] VITALS: Ht 162.6 cm; Wt 47.6 kg
[~2018-05-10 04:08] MED LIST changes: -LOSA25TA4 PO; +LOSA25TA5 PO; +NITR100C62 PO; +ONDA4TAB12 PO; +OXYC-323 PO; +PANT20TA2 PO; +POTA20TA84 PO; +PROM25TA10 PO; +TIZA4TAB PO; +VANC500V PO
--- NOTE | 2018-05-10 04:35 | PHYS DOC ---
Past Medical History Past Medical History: Migraines, Pancreatitis, Other Additional Past Medical Histor: Aortic aneurysm, ESOPHAGEAL STRICTURE, CHRONIC PAIN Past Surgical History: Cholecystectomy, Hysterectomy Additional Past Surgical Histo: Shoulder surgery, ESOPHAGEAL DILITATION Alcohol Use: Occasionally Drug Use: None Adult General Chief Complaint Chief Complaint: ABDOMINAL PAIN HPI HPI Patient is a 58-year-old female who presents to the emergency department for evaluation. She states that for the past several hours she has had some epigastric discomfort, similar to her prior episodes of recurrent abdominal discomfort that she has had. She states she has been told that she has pancreatitis in the past. The odor of alcohol detectable on the patient's breath. She admits to drinking some alcohol this evening, but she states that she does not necessarily drink regularly. She has not had any vomiting but has had some nausea. She has not had any diarrhea, or black or bloody stools. She has not had any urinary symptoms, chest, fevers, or chills. There are no alleviating or exacerbating factors to the patient's symptoms. The patient initially declined that she takes pain medications on a regular basis, but then she admitted that she takes tramadol daily. I asked her about oxycodone, as she has been getting monthly oxycodone prescriptions, apparently by her primary care provider, and she states she has a prescription for oxycodone but does not take it regularly. She appears to be due for a prescription refill around the time of the month, based on her prescription history per [facility]. Review of the patient's prior records reveals that she has had 7 CT scans of her abdomen and pelvis at this hospital in the past 2 years. Her most recent imaging study, from 12/2017 has been reviewed. Review of Systems Review of Systems Constitutional: Denies fever or chills [] Eyes: Denies change in visual acuity, redness, or eye pain [] HENT: Denies nasal congestion or sore throat [] Respiratory: Denies cough or shortness of breath [] Cardiovascular: The patient denies any shortness of breath, chest pain, palpitations, or orthopnea [] GI:No additional information not addressed in HPI [] : Denies dysuria or hematuria [] Musculoskeletal: Denies back pain or joint pain [] Integument: Denies rash or skin lesions [] Neurologic: Denies headache, focal weakness or sensory changes [] Endocrine: Denies polyuria or polydipsia [] All other systems were reviewed and found to be within normal limits, except as documented in this note. Current Medications Current Medications Current Medications Medications (Trade) Dose Ordered Sig/Chad Start Time Stop Time Status Last Admin Dose Admin Famotidine (Pepcid Vial) 20 mg 1X ONCE 05/10/18 05:00 05/10/18 05:01 DC 05/10/18 05:11 20 MG Morphine Sulfate (Morphine Sulfate) 4 mg 1X ONCE 05/10/18 08:30 05/10/18 08:31 DC Oxycodone HCl (Roxicodone) 5 mg 1X ONCE 05/10/18 06:15 05/10/18 06:16 DC 05/10/18 06:13 5 MG Pantoprazole Sodium (PROTONIX VIAL for IV PUSH) 40 mg 1X ONCE 05/10/18 05:00 05/10/18 05:01 DC 05/10/18 05:11 40 MG Potassium Chloride (Klor-Con) 40 meq 1X ONCE 05/10/18 07:00 05/10/18 07:01 DC Sodium Chloride 1,000 ml @ 1,000 mls/hr 1X ONCE 05/10/18 08:30 05/10/18 09:29 Allergies Allergies Allergies Coded Allergies Type Severity Reaction Last Updated Verified No Known Drug Allergies 01/09/17 No Physical Exam Physical Exam PHYSICAL EXAM: CONSTITUTIONAL: Well developed, well nourished. The odor of alcohol on the patient's breath. HEAD: normocephalic, atraumatic EENT: PERRL, EOMI. Conjunctivae normal color, sclerae non-icteric; moist mucous membranes. NECK: Supple, non-tender; no meningismus. LUNGS: Lungs CTA, breathing even and unlabored. Normal air movement. HEART: Regular rate and rhythm, no murmur CHEST: No deformity; non-tender ABDOMEN: The abdomen is soft, there is epigastric and left upper quadrant tenderness to palpation which reproduces the patient's pain. No bowel sounds are present. The remainder the abdomen is soft and non-tender, no masses or bruits. EXTREM: Normal ROM; no deformity, no calf tenderness. Normal pulses palpable in all extremities. There is no pedal edema. SKIN: No rash; no diaphoresis NEURO: Alert; normal speech and cognition; CN's grossly intact; strength grossly intact without focal deficit. BACK: No CVA TTP. Current Patient Data Vital Signs Vital Signs Date Time Temp Pulse Resp B/P (MAP) Pulse Ox O2 Delivery O2 Flow Rate FiO2 05/10/18 07:46 88 28 123/71 (88) 99 Room Air 05/10/18 04:28 98.0 98.0 Lab Values Laboratory Tests Test 05/10/18 04:16 05/10/18 05:02 05/10/18 06:36 05/10/18 06:49 Urine Collection Type Unknown Urine Color Yellow Urine Clarity Clear Urine pH 6.0 Urine Specific [place] 1.010 Urine Protein Negative mg/dL (NEG-TRACE) Urine Glucose (UA) Negative mg/dL (NEG) Urine Ketones (Stick) Negative mg/dL (NEG) Urine Blood Negative (NEG) Urine Nitrite Negative (NEG) Urine Bilirubin Negative (NEG) Urine Urobilinogen Dipstick 0.2 mg/dL (0.2 mg/dL) Urine Leukocyte Esterase Trace (NEG) Urine RBC Occ /HPF (0-2) Urine WBC 1-4 /HPF (0-4) Urine Squamous Epithelial Cells Few /LPF Urine Bacteria Few /HPF (0-FEW) Urine Mucus Slight /LPF White Blood Count 8.4 x10^3/uL (4.0-11.0) Red Blood Count 3.64 x10^6/uL (3.50-5.40) Hemoglobin 11.0 g/dL (12.0-15.5) L Hematocrit 31.5 % (36.0-47.0) L Mean Corpuscular Volume 87 fL (79-100) Mean Corpuscular Hemoglobin 30 pg (25-35) Mean Corpuscular Hemoglobin Concent 35 g/dL (31-37) Red Cell Distribution Width 14.6 % (11.5-14.5) H Platelet Count 196 x10^3/uL (140-400) Neutrophils (%) (Auto) 64 % (31-73) Lymphocytes (%) (Auto) 25 % (24-48) Monocytes (%) (Auto) 7 % (0-9) Eosinophils (%) (Auto) 4 % (0-3) H Basophils (%) (Auto) 0 % (0-3) Neutrophils # (Auto) 5.4 x10^3uL (1.8-7.7) Lymphocytes # (Auto) 2.0 x10^3/uL (1.0-4.8) Monocytes # (Auto) 0.6 x10^3/uL (0.0-1.1) Eosinophils # (Auto) 0.3 x10^3/uL (0.0-0.7) Basophils # (Auto) 0.0 x10^3/uL (0.0-0.2) Prothrombin Time 14.8 SEC (11.7-14.0) H Prothrombin Time INR 1.2 (0.8-1.1) H PTT 32 SEC (24-38) Sodium Level 147 mmol/L (136-145) H Potassium Level 3.3 mmol/L (3.5-5.1) L Chloride Level 111 mmol/L (98-107) H Carbon Dioxide Level 19 mmol/L (21-32) L Anion Gap 17 (6-14) H Blood Urea Nitrogen 18 mg/dL (7-20) Creatinine 1.5 mg/dL (0.6-1.0) H Estimated GFR (Cockcroft-Gault) 35.7 BUN/Creatinine Ratio 12 (6-20) Glucose Level 109 mg/dL (70-99) H Calcium Level 9.1 mg/dL (8.5-10.1) Total Bilirubin 0.2 mg/dL (0.2-1.0) Aspartate Amino Transferase (AST) 10 U/L (15-37) L Alanine Aminotransferase (ALT) 12 U/L (14-59) L Alkaline Phosphatase 99 U/L (46-116) Troponin I Quantitative < 0.017 ng/mL (0.000-0.055) Total Protein 6.7 g/dL (6.4-8.2) Albumin 3.3 g/dL (3.4-5.0) L Albumin/Globulin Ratio 1.0 (1.0-1.7) Lipase 295 U/L (73-393) Ethyl Alcohol Level < 10 mg/dL (0-10) Lactic Acid Level 0.7 mmol/L (0.4-2.0) POC Venous pH 7.30 (7.32-7.42) L POC Venous pCO2 32 mmHg (41-51) L POC Venous pO2 66 mmHg (20-40) H Venous Blood HCO3 16 mmol/L (24-28) L POC Venous O2 Saturation ([place]) 91 % POC FiO2 21.0 Laboratory Tests 05/10/18 05:02 Laboratory Tests 05/10/18 05:02 EKG EKG [Normal sinus rhythm at a rate of 93 bpm, normal axis, normal intervals, there are diffuse nonspecific ST/T changes present. EKG is not significantly changed compared to patient's EKG from 04/08/17. Repeat EKG, done at 5:06 AM, shows normal sinus rhythm at a rate of 94 bpm, normal axis, normal intervals, diffuse nonspecific ST/T changes unchanged compared to prior EKGs. Radiology/Procedures Radiology/Procedures [] Course & Med Decision Making Course & Med Decision Making Pertinent Labs and Imaging studies reviewed. (See chart for details) [6:20 AM: Pt condition remains stable. Mild metabolic acidosis, patient appears to have mild hyperventillation at this time. Has had similar lab abnormalities in the past. I will check lactic acid and a blood gas to ensure that there is no evidence of acute metabolic acidosis. I suspect that this is a chronic finding. The patient is due for her monthly oxycodone prescription today, but states that she lost her insurance and cannot see her primary care provider. I do suspect this might be contributing to her symptoms. I do not believe she warrants further abdominal imaging at this time emergently unless her lactic acid is elevated. At this point, I am awaiting lab to redraw her lactic acid and venous blood gas. Care will be turned over to Dr. Delgado at shift change pending final disposition. Report given.] H&P repeated by this physician. Lab, previous medical records reviewed. Agree with previous of physician assessment. Patient's resting comfortably, she reports exacerbation of chronic pancreatitis likely secondary to acute alcohol consumption. Abdomen soft, nonsurgical and repeat evaluation. Patient does have evidence of dehydration and was given 2 L of normal saline. Potassium was declined, patient prefers to take her potassium tablets at home which she has available and has not been taking. Overall, patient feels much improved and is comfortable going home. Patient does agree to follow-up with her primary care physician early next week. Patient does have access to an outpatient infusion center where she routinely receives IV fluids and potassium replacement. Return precautions reviewed. Dragon Disclaimer Dragon Disclaimer This electronic medical record was generated, in whole or in part, using a voice recognition dictation system. Departure Departure Impression: Primary Impression: Abdominal pain Additional Impressions: Epigastric abdominal pain Chronic pain Condition: IMPROVED Referrals: INGRIS FAYE (PCP) Additional Instructions: Please take nausea medication as directed and resume home potassium replacement. Follow-up with your PCP early next week for reevaluation and with outpatient infusion center as needed. Return to the ED if new or worsening symptoms. Scripts Ondansetron Hcl (ZOFRAN) 4 Mg Tablet 1 TAB PO Q6HRS, #10 TAB 0 Refills Prov: THANG DELGADO DO 05/10/18 Problem Qualifiers SCOT BANKS MD May 10, 2018 04:35 THANG DELGADO DO May 10, 2018 08:45
[2018-05-10 04:46] LABS: BILIRUBIN,URINE NEGATIVE (NEG); CLARITY,URINE CLEAR; COLOR,URINE YELLOW; NITRITE,URINE NEGATIVE (NEG); PROTEIN,URINE NEGATIVE (NEG-TRACE); UROBILINOGEN,URINE 0.2 mg/dL (0.2 mg/dL)
[2018-05-10 04:57] LABS: BACTERIA,URINE FEW /HPF (0-FEW); RBC,URINE OCC /HPF (0-2); SQUAMOUS EPITHELIAL CELL,UR FEW /LPF
[2018-05-10] MEDS: IV NORMAL SALINE 1000ML BAG 1,000 ML IV SCH (05:00)
[2018-05-10] MEDS: FAMOTIDINE 20 MG/2 ML VIAL IVP ONE (05:11)
[2018-05-10] MEDS: PANTOPRAZOLE IV PUSH 40 MG VIAL. IVP ONE (05:11)
[2018-05-10 05:14] LABS: BASO % 0 % (0-3); EOS # 0.3 x10^3/uL (0.0-0.7); EOS % 4 % (0-3); HEMATOCRIT 31.5 % (36.0-47.0); LYMPH % 25 % (24-48); MEAN CORPUSCULAR HEMOGLOBIN 30 pg (25-35); MEAN CORPUSCULAR HGB CONC 35 g/dL (31-37); MEAN CORPUSCULAR VOLUME 87 fL (79-100); MONO # 0.6 x10^3/uL (0.0-1.1); MONO % 7 % (0-9); NEUT # 5.4 x10^3uL (1.8-7.7); NEUT % 64 % (31-73); PLATELET COUNT 196 x10^3/uL (140-400); RED BLOOD COUNT 3.64 x10^6/uL (3.50-5.40); RED CELL DISTRIBUTION WIDTH 14.6 % (11.5-14.5); WHITE BLOOD COUNT 8.4 x10^3/uL (4.0-11.0)
--- NOTE | 2018-05-10 05:14 | EKG ---
[facility] [address] [place] [address] Test Date: 2018-05-10 Test Time: 05:06:13 Pat Name: PHAM SONG Department: Room: Gender: F Studio Hand: : 1960 Requested By: SCOT BANKS Order Number: [id number] Reading MD: Bairon Guardado Measurements Intervals [place] Rate: 94 P: 60 ND: 178 QRS: 37 QRSD: 74 T: 59 QT: 358 QTc: 453 Interpretive Statements SINUS RHYTHM QRS(T) CONTOUR ABNORMALITY CONSIDER ANTEROLATERAL MYOCARDIAL DAMAGE POSSIBLY ABNORMAL ECG Electronically Signed On 05-13-2018 12:06:51 CDT by Bairon Guardado
[2018-05-10 05:21] LABS: CALCIUM 9.1 mg/dL (8.5-10.1); CREATININE 1.5 mg/dL (0.6-1.0); GFR 35.7; POTASSIUM 3.3 mmol/L (3.5-5.1)
[2018-05-10 05:26] LABS: ALBUMIN 3.3 g/dL (3.4-5.0); TOTAL BILIRUBIN 0.2 mg/dL (0.2-1.0); TOTAL PROTEIN 6.7 g/dL (6.4-8.2)
[2018-05-10 05:32] LABS: PROTHROMBIN TIME PATIENT 14.8 SEC (11.7-14.0)
[2018-05-10] MEDS: oxyCODONE IR 5 MG TABLET PO ONE (06:13)
--- NOTE | 2018-05-10 06:31 | EKG ---
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
[2018-05-10 06:53] LABS: ISTAT BE VENOUS -11 mmol/L (0-3); ISTAT HCO3 VEN 16 mmol/L (24-28); ISTAT PCO2 VEN 32 mmHg (41-51); ISTAT PO2 VEN 66 mmHg (20-40); ISTAT SAT O2 VEN 91 %; ISTAT TCO2 VEN 16 mmol/L (21-32)
[2018-05-10] MEDS: POTASSIUM CHLORIDE 20 MEQ TABLET.ER. PO ONE (07:00)
[2018-05-10] MEDS: MORPHINE SULFATE 4 MG/ML VIAL. IV ONE (08:30)
[2018-05-10] MEDS ORDERED: ONDA4TAB7 PO (08:44)
[2018-05-10] MEDS: IV NORMAL SALINE 1000ML BAG 1,000 ML IV ONE ×2 (08:51→08:52)
[2018-05-10 09:46] VITALS: BP 144/90
--- NOTE | 2018-05-10 13:29 | EKG ---
[facility] [address] [place] [address] Test Date: 2018-05-10 Test Time: 06:46:28 Pat Name: PHAM SONG Department: Room: Gender: F Gill Box Operator: : 1960 Requested By: THANG RUSH Order Number: [id number] Reading MD: Measurements Intervals [place] Rate: 77 P: 64 MS: 184 QRS: 31 QRSD: 76 T: 54 QT: 370 QTc: 420 Interpretive Statements SINUS RHYTHM QRS(T) CONTOUR ABNORMALITY CONSIDER ANTEROLATERAL MYOCARDIAL DAMAGE POSSIBLY ABNORMAL ECG RI6.01 No previous ECG available for comparison
== END 2018-05-10 10:03 | disposition home or self-care (01) ==
LOC: ER 04:08
DX: R10.13 Epigastric pain (principal); G89.29 Other chronic pain; G43.909 Migraine, unspecified, not intractable, without status migrainosus; Z90.49 Acquired absence of other specified parts of digestive tract; Z90.710 Acquired absence of both cervix and uterus
CPT/HCPCS: 36415; 80053; 81001; 82803; 83605; 83690; 84484; 85025; 85610; 85730; 87086; 93005; 96374; 96375; 99285; C9113; G0480; J2270; J7030; S0028

== ENCOUNTER 2021-05-10 20:17 | Emergency (ER) | payer OTHER ==
[~2021-05-10] VITALS: Ht 162.6 cm; Wt 47.7 kg
[~2021-05-10 20:17] MED LIST changes: +ESTR-113 PO; -ESTR1TAB15 PO; -HYDR-2762 PO; +HYDR-2765 PO; +HYDR-3164 PO; -HYDR-971 PO; -LIPA1CAP12 PO; +LIPA1CAP31 PO; -LOSA25TA5 PO; +LOSA25TA54 PO; -OMEP40CA5 PO; +OMEP40CA7 PO; -OXYC-323 PO; +OXYC1TAB15 PO; -PANT40TA3 PO; +PANT40TA77 PO; +SENN-182 PO; -SENN-79 PO; -TIZA4TAB PO; +TIZA4TAB2 PO
[2021-05-10 20:37] VITALS: BP 109/74
== END 2021-05-10 23:43 | disposition left against medical advice (07) ==
LOC: ER 20:17
DX: R07.89 Other chest pain (principal); M54.2 Cervicalgia; Z53.21 Procedure and treatment not carried out due to patient leaving prior to being seen by health care provider

== ENCOUNTER → 2021-08-03 | Outpatient (CLI) | payer OTHER ==
[~2021-08-03] MED LIST changes: +CYCL10TA19 PO; -CYCL10TA2 PO; +REGADENOSON 0.4 MG/5 ML DISP.SYRIN. IV ONE; +TIZA-75 PO; -TIZA4TAB2 PO
--- NOTE | 2021-08-03 18:20 | CARD ---
MR#: [id number] Date of Study: 08/03/2021 Ordering Physician: SARAH REED, Referring Physician: SARAH REED, Tech: Inga Melendez, [facility] APPROVED REPORT EXAM: Two-dimensional and M-mode echocardiogram with Doppler and color Doppler. Other Information Quality : AverageHR: 99bpm INDICATION Aortic Valve Disease Biscupid Aortic Valve RISK FACTORS Hypertension 2D DIMENSIONS RVDd2.4 (2.9-3.5cm)Left Atrium(2D)1.6 (1.6-4.0cm) IVSd0.9 (0.7-1.1cm)Aortic Root(2D)3.5 (2.0-3.7cm) LVDd4.0 (3.9-5.9cm)LVOT Diameter2.0 (1.8-2.4cm) PWd0.8 (0.7-1.1cm)LVDs2.5 (2.5-4.0cm) FS (%) 37.5 %SV47.9 ml Aortic Valve AoV Peak Jordan.136.6cm/sAoV VTI20.8cm AO Peak GR.7.5mmHgLVOT Peak Jordan.108.7cm/s LVOT VTI 17.61cmAO Mean GR.4mmHg SHARMIN (VMAX)2.22cd0ERB (VTI)2.65cm2 Mitral Valve MV E Sjujxjju33.2cm/sMV DECEL LUAB301gc MV A Xffqcsru98.8cm/sMV E Mean Gr.2mmHg MV BIJ28apB/A Ratio0.9 MVA (PHT)3.98cm2 Pulmonary Valve PV Peak Zcyqukuk37.0cm/sPV Peak Grad.3mmHg Tricuspid Valve TR P. Dzsdhcbi023pm/sRAP HHBCSWAV1ouNk TR Peak Gr.84lsJePGIR79hqKj LEFT VENTRICLE The left ventricle is normal size. There is normal left ventricular wall thickness. The left ventricu lar systolic function is normal and the ejection fraction is within normal range. The Ejection Fracti on is 50-55%. There is normal LV segmental wall motion. Transmitral Doppler flow pattern is Grade I-a bnormal relaxation pattern. RIGHT VENTRICLE The right ventricle is normal size. There is normal right ventricular wall thickness. The right ventr icular systolic function is normal. ATRIA The left atrium size is normal. The right atrium size is normal. The interatrial septum is intact wit h no evidence for an atrial septal defect or patent foramen ovale as noted on 2-D or Doppler imaging. AORTIC VALVE The aortic valve is bicuspid. Calcification at the right cusp. Doppler and Color Flow revealed no sig nificant aortic regurgitation. There is no significant aortic valvular stenosis. Calculated aortic va lve area is 2.36 cm2 with maximum pressure gradient of 10 mmHg and mean pressure gradient of 5 mmHg. MITRAL VALVE The mitral valve is normal in structure and function. There is no evidence of mitral valve prolapse. There is no mitral valve stenosis. Doppler and Color-flow revealed trace mitral regurgitation. TRICUSPID VALVE The tricuspid valve is normal in structure and function. Doppler and Color Flow revealed trace tricus pid regurgitation with an estimated PAP of 29 mmHg. There is no tricuspid valve stenosis. PULMONIC VALVE The pulmonic valve is not well visualized. Doppler and Color Flow revealed no pulmonic valvular regur gitation. GREAT VESSELS The aortic root is mildly enlarged measuring 3.5 cm. The ascending aorta is mildly dilated measuring 3.8 cm. The IVC is normal in size and collapses >50% with inspiration. PERICARDIAL EFFUSION There is no evidence of significant pericardial effusion. Critical Notification Critical Value: No <Conclusion> The left ventricle is normal size. The left ventricular systolic function is normal and the ejection fraction is within normal range. The Ejection Fraction is 50-55%. There is normal LV segmental wall motion. The aortic valve is bicuspid. Calcification at the right cusp. Doppler and Color Flow revealed no significant aortic regurgitation. There is no significant aortic valvular stenosis. Calculated aortic valve area is 2.36 cm2 with maximum pressure gradient of 10 mmHg and mean pressure gradient of 5 mmHg. Doppler and Color-flow revealed trace mitral regurgitation. Doppler and Color Flow revealed trace tricuspid regurgitation with an estimated PAP of 29 mmHg. The aortic root is mildly enlarged measuring 3.5 cm. Signed by : Stephon David MD Electronically Approved : 08/03/2021 18:19:48
--- NOTE | 2021-08-03 18:43 | RAD ---
MR#: [id number] Date of Study: 08/03/2021 Ordering Physician: SARAH REED, Referring Physician: RICHARD MOTTA Tech: RT Gallo (Kianna) (N) APPROVED REPORT Test Type: Pharmacological Stress Nurse/Tech: Erika Aguero RN Test Indications: chest pain Cardiac History: Hypertension Medications: See Electronic Medical Record Medical History: See Electronic Medical Record Resting ECG: SR Resting Heart Rate: 96 bpm Resting Blood Pressure: 144/96mmHg Pretest Chest Pain: No chest pain Nurse/Tech Notes S1,S2 and lungs clear to auscultation. Consent: The procedure was explained to the patient in lay terms. Informed consent was witnessed. John eout was entered into [employer]. History and Stress Test performed by RT Alena Holder) (N) Pharm. Details Pharmacologic stress testing was performed using 0.4mg per 5ml of regadenoson given intravenously ove r 7-10 seconds. Stress Symptoms Dyspnea,Nausea POST EXERCISE Reason for Termination: Infusion complete Target HR: No Max HR: 122 bpm 90% of Maximum Predicted HR: 135 bpm Max Blood Pressure: 148/75mmHg Blood Pressure response to exercise: Normal blood pressure response during stress. Heart Rate response to exercise: WNL Chest Pain: Yes. 3/10 at beginning of test, subsided after 2 minutes Arrhythmia: No. ST Change: No. INTERPRETATION Stress EKG Conclusion: The resting EKG shows a sinus rhythm with nonspecific T wave changes. The stress EKG shows no significant changes from baseline. No EKG evidence of stress-induced ischemia. Imaging Protocol IMAGE PROTOCOL: Rest Tc-99m/stress Tc-99m 1 day Rest: Stress: Viability: Radiopharm.Tc99m HhjdvfcnfYx07i Sestamibi Pbpl83bXn 31mCi Duration 13min. 13min. Img Date 08/03/2021 08/03/2021 Inj-Img Usvw69nkl. 60min. Rest Admin Site:IV - Right WristAdministrator:MAGDALENA Howe Stress Admin Site: IV - Right WristAdministrator: MAGDALENA Howe STRESS DATA End Diast. Vol.32.0mlLVEDV index BSA22.0ml End Syst. Vol.7.0mlLVESV index BSA5.0ml Myocardial Mass69.0gEject. Oisicgts09.0% Stress Scores Regional WT1.00Summed WT2.00 Regional WM0.00Summed WM4.00 LV Perfusion The stress scans showed no significant defects. The rest scans showed no significant defects. Nuclear imaging shows no reversible ischemia or infarct. Wall Motion Left ventricular systolic function is normal with an ejection fraction of greater than 70%. LV Perf. Quant 17 Seg. SSS0.00 17 Seg. SRS0.00 17 Seg. SDS0.00 Stress Defect Extent (% LAD)0.00Rest Defect Extent (% LAD)0.00Rev. Defect Extent (% LAD)0.00 Stress Defect Extent (% LCX) 0.00Rest Defect Extent (% LCX)0.00Rev. Defect Extent (% LCX)0.00 Stress Defect Extent (% RCA)0.00Rest Defect Extent (% RCA)0.00Rev. Defect Extent (% RCA)0.00 Stress Defect Extent (% NOE)0.00Rest Defect Extent (% NOE)0.00Rev. Defect Extent (% NOE)0.00 Conclusion 1. No EKG evidence of stress-induced ischemia. 2. Nuclear imaging shows no reversible ischemia or infarct. 3. Normal left ventricular systolic function with ejection fraction of greater than 70%. 4. Low risk Lexiscan nuclear stress test. Signed by : Stephon David MD Electronically Approved : 08/03/2021 18:43:26
== END ==
LOC: NM 09:46
PROVIDERS: ATTEND Internal Medicine Cardiovascular Disease
DX: I35.1 Nonrheumatic aortic (valve) insufficiency (principal); I77.819 Aortic ectasia, unspecified site; R07.9 Chest pain, unspecified
CPT/HCPCS: 78452; 93017; 93306; A9500; J2785

== ENCOUNTER 2021-09-06 20:19 | Emergency (ER) | payer OTHER ==
[~2021-09-06] VITALS: Ht 160 cm; Wt 45.4 kg
[~2021-09-06 20:19] MED LIST changes: -REGADENOSON 0.4 MG/5 ML DISP.SYRIN. IV ONE
--- NOTE | 2021-09-06 21:00 | ED.ADGEN ---
Past Medical History Past Medical History: Migraines, Other Additional Past Medical Histor: AORTIC ANEURYSM X2 Past Surgical History: Cholecystectomy, Hysterectomy, Other Additional Past Surgical Histo: SINUS X2, SHOULDER,BLADDER SUSPENSION Smoking Status: Never Smoker Alcohol Use: Occasionally Drug Use: None General Adult EDM: Chief Complaint: CHEST PAIN-CARDIAC NATURE HPI: HPI: Patient is a 61 year old female coming in [facility] at the direction of her physician's office. Patient states she had lab work done 3 days ago. Was told her potassium magnesium were low but is not on the numbers. Patient was also told to go to get a CT today to rule out PE. When patient got that they were unable to perform the test and she went home. Was called by her doctor's office to told her to come to the emergency department. Patient has been complaining of intermittent anterior bilateral chest pain for the past 2 weeks. Patient states is worsened with cold and exertion. Denies any cough. Has had says she has had some shortness of breath with exertion. As well as fatigue. Denies any diaphoresis nausea or vomiting. Patient says the pain does not radiate. Patient states she is a history of intermittent hypokalemia and hypomagnesemia, does not take supplementation. Has had her Covid vaccines and booster as well as her influenza vaccine. She does not smoke, drinks occasionally, denies any drug use. Patient denies any cardiac history. States she has migraines and an abdominal aneurysm Review of Systems: Review of Systems: Constitutional: Denies fever or chills. [] Eyes: Denies change in visual acuity. [] HENT: Denies nasal congestion or sore throat. [] Respiratory: Denies cough or shortness of breath. [] Cardiovascular: Denies chest pain or edema. [] GI: Denies abdominal pain, nausea, vomiting, bloody stools or diarrhea. [] : Denies dysuria. [] Musculoskeletal: Denies back pain or joint pain. [] Integument: Denies rash. [] Neurologic: Denies headache, focal weakness or sensory changes. [] Endocrine: Denies polyuria or polydipsia. [] Lymphatic: Denies swollen glands. [] Psychiatric: Denies depression or anxiety. [] Current Medications: Current Medications Medications (Trade) Dose Ordered Sig/Chad Start Time Stop Time Status Last Admin Dose Admin Info (CONTRAST GIVEN -- Rx MONITORING) 1 each PRN DAILY PRN 09/06/21 22:30 09/08/21 22:29 Iohexol (Omnipaque 350 Mg/ml) 80 ml 1X ONCE 09/06/21 22:15 09/06/21 22:17 DC 09/06/21 22:24 80 ML Sodium Chloride 500 ml @ 500 mls/hr 1X ONCE 09/06/21 22:15 09/06/21 23:14 DC Allergies: Allergies: Allergies Coded Allergies Type Severity Reaction Last Updated Verified No Known Drug Allergies 01/09/17 No Physical Exam: PE: Constitutional: Well developed, well nourished, no acute distress, non-toxic appearance. [] HENT: Normocephalic, atraumatic, bilateral external ears normal, oropharynx moist, no oral exudates, nose normal. [] Eyes: PERRLA, EOMI, conjunctiva normal, no discharge. [] Neck: Normal range of motion, no tenderness, supple, no stridor. [] Cardiovascular:Heart rate regular rhythm, no murmur [] Lungs & Thorax: Bilateral breath sounds clear to auscultation [] Abdomen: Bowel sounds normal, soft, no tenderness, no masses, no pulsatile masses. [] Skin: Warm, dry, no erythema, no rash. [] Back: No tenderness, no CVA tenderness. [] Extremities: No tenderness, no cyanosis, no clubbing, ROM intact, no edema. [] Neurologic: Alert and oriented X 3, normal motor function, normal sensory function, no focal deficits noted. [] Psychologic: Affect normal, judgement normal, mood normal. [] Current Patient Data: Labs: Laboratory Tests Test 09/06/21 21:25 09/06/21 22:07 White Blood Count 11.6 x10^3/uL (4.0-11.0) H Red Blood Count 3.56 x10^6/uL (3.50-5.40) Hemoglobin 10.4 g/dL (12.0-15.5) L Hematocrit 32.5 % (36.0-47.0) L Mean Corpuscular Volume 91 fL (79-100) Mean Corpuscular Hemoglobin 29 pg (25-35) Mean Corpuscular Hemoglobin Concent 32 g/dL (31-37) Red Cell Distribution Width 14.0 % (11.5-14.5) Platelet Count 302 x10^3/uL (140-400) Neutrophils (%) (Auto) 73 % (31-73) Lymphocytes (%) (Auto) 17 % (24-48) L Monocytes (%) (Auto) 7 % (0-9) Eosinophils (%) (Auto) 2 % (0-3) Basophils (%) (Auto) 1 % (0-3) Neutrophils # (Auto) 8.4 x10^3/uL (1.8-7.7) H Lymphocytes # (Auto) 2.0 x10^3/uL (1.0-4.8) Monocytes # (Auto) 0.8 x10^3/uL (0.0-1.1) Eosinophils # (Auto) 0.2 x10^3/uL (0.0-0.7) Basophils # (Auto) 0.1 x10^3/uL (0.0-0.2) Sodium Level 139 mmol/L (136-145) Potassium Level 3.4 mmol/L (3.5-5.1) L Chloride Level 110 mmol/L (98-107) H Carbon Dioxide Level 20 mmol/L (21-32) L Anion Gap 9 (6-14) Blood Urea Nitrogen 12 mg/dL (7-20) Creatinine 1.3 mg/dL (0.6-1.0) H Estimated GFR (Cockcroft-Gault) 41.6 BUN/Creatinine Ratio 9 (6-20) Glucose Level 96 mg/dL (70-99) Calcium Level 8.3 mg/dL (8.5-10.1) L Phosphorus Level 2.8 mg/dL (2.6-4.7) Magnesium Level 1.7 mg/dL (1.8-2.4) L Total Bilirubin 0.2 mg/dL (0.2-1.0) Aspartate Amino Transferase (AST) 15 U/L (15-37) Alanine Aminotransferase (ALT) 13 U/L (14-59) L Alkaline Phosphatase 110 U/L (46-116) DB-Njc-Q-Type Natriuretic Peptide 486 pg/mL (0-124) H Total Protein 6.9 g/dL (6.4-8.2) Albumin 2.7 g/dL (3.4-5.0) L Albumin/Globulin Ratio 0.6 (1.0-1.7) L Thyroid Stimulating Hormone (TSH) 1.029 uIU/mL (0.358-3.74) Prothrombin Time 12.8 SEC (11.7-14.0) Prothrombin Time INR 1.0 (0.8-1.1) D-Dimer (Josseline) 1.01 ug/mlFEU (0.00-0.50) H Laboratory Tests 09/06/21 21:25 Laboratory Tests 09/06/21 21:25 Vital Signs: Vital Signs Date Time Temp Pulse Resp B/P (MAP) Pulse Ox O2 Delivery O2 Flow Rate FiO2 09/06/21 20:36 98.1 94 18 122/79 (93) 100 Room Air 98.1 EKG: EKG: Sinus rhythm, heart rate 85 bpm, normal axis, no ST elevation or depression, no ectopy. [] Heart Score: C/O Chest Pain: Yes HEART Score for Chest Pain: HEART Score for Chest Pain Response (Comments) Value History Slighlty/Non-Suspicious 0 ECG Normal 0 Age >45 - < 65 1 Risk Factors 1 or 2 Risk Factors 1 Troponin < Normal Limit 0 Total 2 Risk Factors: Risk Factors: DM, Current or recent (<one month) smoker, HTN, HLP, family history of CAD, obesity. Risk Scores: Score 0 - 3: 2.5% MACE over next 6 weeks - Discharge Home Score 4 - 6: 20.3% MACE over next 6 weeks - Admit for Clinical Observation Score 7 - 10: 72.7% MACE over next 6 weeks - Early Invasive Strategies Radiology/Procedures: Radiology/Procedures: [facility] [address] [place] [address] IMAGING REPORT Signed PATIENT: PHAM BURGOS ACCOUNT: [id number] : 1960 LOCATION: ER AGE: 61 SEX: F EXAM STATUS: REG ER ORD. PHYSICIAN: ALBERT ODEN MD REASON: SHORT OF AIR, CHEST PAIN, PE PROTOCOL PROCEDURE: CT ANGIOGRAPHY CHEST Exam: CT of chest with contrast INDICATION: Short of air TECHNIQUE: Sequential axial images through the chest obtained following the administration of 80 mL of Isovue-370 IV contrast. Sagittal and coronal reformatted images were reconstructed from the axial data and reviewed. 3-D reformatted images were reconstructed from the axial data and reviewed. Exposure: One or more of the following in the visualized dose reduction techniques were utilized for this examination: 1. Automated exposure control 2. Adjustment of the MA and/or KV according to patient size 3. Use of iterative of reconstructive technique Comparisons: None FINDINGS: Visualized portions of the thyroid are unremarkable. No enlarged mediastinal lymph nodes. Heart size is normal. No pericardial effusion. Aneurysmal dilatation of the ascending aorta measuring up to 4.1 cm in transverse dimension. Pulmonary artery is not enlarged. No pulmonary embolus identified within the main, lobar or segmental pulmonary arteries. Airways are patent. No consolidation or pneumothorax. No suspicious lung nodules. No pleural effusion or thickening. Visualized upper abdomen is unremarkable. No suspicious osseous lesions or acute fractures. IMPRESSION: 1. No pulmonary embolus identified within the main, lobar or segmental pulmonary arteries. 2. Aneurysmal dilatation of ascending aorta measuring up to 4.1 cm in transverse dimension. Electronically signed by: Lea Baxter MD (09/06/2021 10:40 PM) [facility] DICTATED and SIGNED BY: LEA BAXTER MD DATE: 09/06/21 [id number] [] Course & Med Decision Making: Course & Med Decision Making Pertinent Labs and Imaging studies reviewed. (See chart for details) Potassium magnesium just below normal range, patient has supplements at home but does not take them. Encouraged taking her supplementation for potassium magnesium and follow-up with her primary care. [] Dragon Disclaimer: Mandy Disclaimer: This electronic medical record was generated, in whole or in part, using a voice recognition dictation system. Departure Departure Impression: Primary Impression: Chest pain Disposition: HOME / SELF CARE / HOMELESS Condition: STABLE Referrals: INGRIS FAYE (PCP) Patient Instructions: Chest Pain (Nonspecific) ALBERT ODEN MD Sep 06, 2021 21:00
[2021-09-06 21:51] LABS: BASO # 0.1 x10^3/uL (0.0-0.2); BASO % 1 % (0-3); EOS # 0.2 x10^3/uL (0.0-0.7); EOS % 2 % (0-3); HEMATOCRIT 32.5 % (36.0-47.0); HEMOGLOBIN 10.4 g/dL (12.0-15.5); LYMPH % 17 % (24-48); MEAN CORPUSCULAR HEMOGLOBIN 29 pg (25-35); MEAN CORPUSCULAR HGB CONC 32 g/dL (31-37); MEAN CORPUSCULAR VOLUME 91 fL (79-100); MONO # 0.8 x10^3/uL (0.0-1.1); MONO % 7 % (0-9); NEUT # 8.4 x10^3/uL (1.8-7.7); NEUT % 73 % (31-73); PLATELET COUNT 302 x10^3/uL (140-400); RED BLOOD COUNT 3.56 x10^6/uL (3.50-5.40); WHITE BLOOD COUNT 11.6 x10^3/uL (4.0-11.0)
[2021-09-06 22:00] VITALS: BP 152/89
[2021-09-06 22:03] LABS: CALCIUM 8.3 mg/dL (8.5-10.1); CREATININE 1.3 mg/dL (0.6-1.0); GFR 41.6; POTASSIUM 3.4 mmol/L (3.5-5.1)
[2021-09-06 22:09] LABS: ALBUMIN 2.7 g/dL (3.4-5.0); ALBUMIN/GLOBULIN RATIO 0.6 (1.0-1.7); MAGNESIUM 1.7 mg/dL (1.8-2.4); PHOSPHORUS 2.8 mg/dL (2.6-4.7); TOTAL BILIRUBIN 0.2 mg/dL (0.2-1.0); TOTAL PROTEIN 6.9 g/dL (6.4-8.2)
[2021-09-06] MEDS: IOHEXOL 350 MG/ML 100 ML VIAL. IV ONE (22:24)
[2021-09-06 22:25] LABS: PROTHROMBIN TIME PATIENT 12.8 SEC (11.7-14.0)
[2021-09-06] MEDS ORDERED: CONTRAST GIVEN. MC PRN (22:30)
[2021-09-06 22:35] LABS: D-DIMER 1.01 ug/mlFEU (0.00-0.50)
--- NOTE | 2021-09-06 22:43 | RAD ---
Exam: CT of chest with contrast INDICATION: Short of air TECHNIQUE: Sequential axial images through the chest obtained following the administration of 80 mL o f Isovue-370 IV contrast. Sagittal and coronal reformatted images were reconstructed from the axial d bolivar and reviewed. 3-D reformatted images were reconstructed from the axial data and reviewed. Exposure: One or more of the following in the visualized dose reduction techniques were utilized for this examination: 1. Automated exposure control 2. Adjustment of the MA and/or KV according to patient size 3. Use of iterative of reconstructive technique Comparisons: None FINDINGS: Visualized portions of the thyroid are unremarkable. No enlarged mediastinal lymph nodes. Heart size is normal. No pericardial effusion. Aneurysmal dilatation of the ascending aorta measuring up to 4.1 cm in transverse dimension. Pulmonary artery is not enlarged. No pulmonary embolus identif ied within the main, lobar or segmental pulmonary arteries. Airways are patent. No consolidation or pneumothorax. No suspicious lung nodules. No pleural effusion or thickening. Visualized upper abdomen is unremarkable. No suspicious osseous lesions or acute fractures. IMPRESSION: 1. No pulmonary embolus identified within the main, lobar or segmental pulmonary arteries. 2. Aneurysmal dilatation of ascending aorta measuring up to 4.1 cm in transverse dimension. Electronically signed by: Lea Dean MD (09/06/2021 10:40 PM) [facility]
[2021-09-06] MEDS: IV NORMAL SALINE 500ML BAG 500 ML IV ONE (23:40)
--- NOTE | 2021-09-07 04:32 | EKG ---
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
== END 2021-09-06 23:53 | disposition home or self-care (01) ==
LOC: ER 20:19
DX: R07.89 Other chest pain (principal); R06.02 Shortness of breath; G43.909 Migraine, unspecified, not intractable, without status migrainosus
CPT/HCPCS: 36415; 71275; 80053; 83735; 83880; 84100; 84443; 85025; 85379; 85610; 93005; 99284; J7040; Q9967

== ENCOUNTER → 2021-12-30 | Emergency (ER) | payer OTHER ==
[~2021-12-30] VITALS: Ht 160 cm; Wt 48.0 kg
[~2021-12-30] MED LIST changes: +LIDO700A21 TP; -OMEP20TA8 PO; +OMEP20TA91 PO
--- NOTE | 2021-12-30 13:14 | RAD ---
Exam Date: 12/30/2021 12:55 PM XR CHEST 1V Indication: Reason: chest pain,pt states lt sided chest pain. / Spl. Instructions: / History: . Comparison: November 12, 2016 FINDINGS/ IMPRESSION: The aorta is calcified. The cardiac silhouette and pulmonary vasculature are within normal limits. There is no focal consolidation, pleural effusion or pneumothorax. The visualized osseous structures are intact. Electronically signed by: Enrique Varghese MD (12/30/2021 1:12 PM) [id number]
[2021-12-30 13:15] LABS: ANION GAP 15 (6-14); BLOOD UREA NITROGEN 27 mg/dL (7-20); BUN/CREATININE RATIO 19 (6-20); CALCIUM 9.4 mg/dL (8.5-10.1); CARBON DIOXIDE 17 mmol/L (21-32); CHLORIDE 108 mmol/L (98-107); CREATININE 1.4 mg/dL (0.6-1.0); GFR 38.2; GLUCOSE 90 mg/dL (70-99); POTASSIUM 4.1 mmol/L (3.5-5.1); SODIUM 140 mmol/L (136-145)
[2021-12-30 13:20] LABS: ALBUMIN 3.5 g/dL (3.4-5.0); ALBUMIN/GLOBULIN RATIO 0.8 (1.0-1.7); ALK PHOS 119 U/L (46-116); ALT (SGPT) 28 U/L (14-59); AST (SGOT) 24 U/L (15-37); BASO # 0.1 x10^3/uL (0.0-0.2); BASO % 1 % (0-3); DIRECT BILIRUBIN < 0.1 mg/dL (0.0-0.2); EOS # 0.2 x10^3/uL (0.0-0.7); EOS % 2 % (0-3); HEMATOCRIT 38.2 % (36.0-47.0); HEMOGLOBIN 12.8 g/dL (12.0-15.5); LIPASE 121 U/L (73-393); LYMPH # 1.5 x10^3/uL (1.0-4.8); LYMPH % 14 % (24-48); MEAN CORPUSCULAR HEMOGLOBIN 30 pg (25-35); MEAN CORPUSCULAR HGB CONC 33 g/dL (31-37); MEAN CORPUSCULAR VOLUME 91 fL (79-100); MONO # 0.8 x10^3/uL (0.0-1.1); MONO % 7 % (0-9); NEUT # 8.4 x10^3/uL (1.8-7.7); NEUT % 77 % (31-73); PLATELET COUNT 254 x10^3/uL (140-400); RED BLOOD COUNT 4.21 x10^6/uL (3.50-5.40); RED CELL DISTRIBUTION WIDTH 14.2 % (11.5-14.5); TOTAL BILIRUBIN 0.3 mg/dL (0.2-1.0); TOTAL PROTEIN 7.9 g/dL (6.4-8.2)
[2021-12-30 13:28] LABS: PROTHROMBIN TIME PATIENT 13.6 SEC (11.7-14.0)
[2021-12-30] MEDS: MORPHINE SULFATE 4 MG/ML INJ. IVP ONE (13:43)
[2021-12-30 15:35] LABS: BARBITURATES NEG (NEG); BENZODIAZEPINES NEG (NEG); CANNABINOIDS NEG (NEG); COCAINE NEG (NEG); METHADONE NEG (NEG); OPIATES POS (NEG); PHENCYCLIDINE NEG (NEG)
[2021-12-30 15:37] LABS: AMPHETAMINE/METHAMPHETAMINE NEG (NEG)
[2021-12-30 15:42] LABS: BACTERIA,URINE 0 /HPF (0-FEW)
--- NOTE | 2021-12-30 15:56 | PHYS DOC ---
Past Medical History Past Medical History: Migraines, Other Additional Past Medical Histor: AORTIC ANYUREUM Past Surgical History: No Surgical History Additional Past Surgical Histo: SINUS X2, SHOULDER,BLADDER SUSPENSION Smoking Status: Never Smoker Alcohol Use: None Drug Use: None General Adult EDM: Chief Complaint: CHEST PAIN HPI: HPI: 61-year-old female, past medical history 4.1 cm thoracic aortic aneurysm, bicuspid aortic valve, pancreatitis, gastroparesis, recent unremarkable echo and stress test July [address] Almodovar, presents with left sided chest pain, sharp, constant x1 day. No shortness of breath or diaphoresis or palpitations. no neck or back pain. No fever, chills, nausea, vomiting, cough, sore throat, abdominal pain, urinary complaints or diarrhea. Review of Systems: Review of Systems: Constitutional: Denies fever or chills. [] Eyes: Denies change in visual acuity. [] HENT: Denies nasal congestion or sore throat. [] Respiratory: Denies cough or shortness of breath. [] Cardiovascular: + chest pain, no edema. [] GI: Denies abdominal pain, nausea, vomiting, bloody stools or diarrhea. [] : Denies dysuria. [] Musculoskeletal: Denies back pain or joint pain. [] Integument: Denies rash. [] Neurologic: Denies headache, focal weakness or sensory changes. [] Endocrine: Denies polyuria or polydipsia. [] Lymphatic: Denies swollen glands. [] Psychiatric: Denies depression or anxiety. [] Heart Score: C/O Chest Pain: Yes HEART Score for Chest Pain: HEART Score for Chest Pain Response (Comments) Value History Moderately Suspicious 1 ECG Normal 0 Age >45 - < 65 1 Risk Factors 1 or 2 Risk Factors 1 Troponin < Normal Limit 0 Total 3 Risk Factors: Risk Factors: DM, Current or recent (<one month) smoker, HTN, HLP, family history of CAD, obesity. Risk Scores: Score 0 - 3: 2.5% MACE over next 6 weeks - Discharge Home Score 4 - 6: 20.3% MACE over next 6 weeks - Admit for Clinical Observation Score 7 - 10: 72.7% MACE over next 6 weeks - Early Invasive Strategies Current Medications: Current Medications Medications (Trade) Dose Ordered Sig/Chad Start Time Stop Time Status Last Admin Dose Admin Morphine Sulfate (Morphine Sulfate) 4 mg 1X ONCE 12/30/21 13:45 12/30/21 13:46 DC 12/30/21 13:43 4 MG Allergies: Allergies: Allergies Coded Allergies Type Severity Reaction Last Updated Verified No Known Drug Allergies 01/09/17 No Physical Exam: PE: Constitutional: Well developed, well nourished, no acute distress, non-toxic appearance. [] HENT: Normocephalic, atraumatic, bilateral external ears normal, oropharynx moist, no oral exudates, nose normal. [] Eyes: PERRLA, EOMI, conjunctiva normal, no discharge. [] Neck: Normal range of motion, no tenderness, supple, no stridor. [] Cardiovascular: no reproducible chest wall ttp, Heart rate regular rhythm, no murmur [] Lungs & Thorax: Bilateral breath sounds clear to auscultation [] Abdomen: Bowel sounds normal, soft, no tenderness, no masses, no pulsatile jess s. [] Skin: Warm, dry, no erythema, no rash. [] Back: No tenderness, no CVA tenderness. [] Extremities: No tenderness, no cyanosis, no clubbing, ROM intact, no edema. [] Neurologic: Alert and oriented X 3, normal motor function, normal sensory function, no focal deficits noted. [] Psychologic: Affect normal, judgement normal, mood normal. [] Current Patient Data: Labs: Laboratory Tests Test 12/30/21 12:45 12/30/21 15:03 White Blood Count 11.0 x10^3/uL (4.0-11.0) Red Blood Count 4.21 x10^6/uL (3.50-5.40) Hemoglobin 12.8 g/dL (12.0-15.5) Hematocrit 38.2 % (36.0-47.0) Mean Corpuscular Volume 91 fL (79-100) Mean Corpuscular Hemoglobin 30 pg (25-35) Mean Corpuscular Hemoglobin Concent 33 g/dL (31-37) Red Cell Distribution Width 14.2 % (11.5-14.5) Platelet Count 254 x10^3/uL (140-400) Neutrophils (%) (Auto) 77 % (31-73) H Lymphocytes (%) (Auto) 14 % (24-48) L Monocytes (%) (Auto) 7 % (0-9) Eosinophils (%) (Auto) 2 % (0-3) Basophils (%) (Auto) 1 % (0-3) Neutrophils # (Auto) 8.4 x10^3/uL (1.8-7.7) H Lymphocytes # (Auto) 1.5 x10^3/uL (1.0-4.8) Monocytes # (Auto) 0.8 x10^3/uL (0.0-1.1) Eosinophils # (Auto) 0.2 x10^3/uL (0.0-0.7) Basophils # (Auto) 0.1 x10^3/uL (0.0-0.2) Prothrombin Time 13.6 SEC (11.7-14.0) Prothrombin Time INR 1.1 (0.8-1.1) Sodium Level 140 mmol/L (136-145) Potassium Level 4.1 mmol/L (3.5-5.1) Chloride Level 108 mmol/L (98-107) H Carbon Dioxide Level 17 mmol/L (21-32) L Anion Gap 15 (6-14) H Blood Urea Nitrogen 27 mg/dL (7-20) H Creatinine 1.4 mg/dL (0.6-1.0) H Estimated GFR (Cockcroft-Gault) 38.2 BUN/Creatinine Ratio 19 (6-20) Glucose Level 90 mg/dL (70-99) Calcium Level 9.4 mg/dL (8.5-10.1) Total Bilirubin 0.3 mg/dL (0.2-1.0) Direct Bilirubin < 0.1 mg/dL (0.0-0.2) Aspartate Amino Transferase (AST) 24 U/L (15-37) Alanine Aminotransferase (ALT) 28 U/L (14-59) Alkaline Phosphatase 119 U/L (46-116) H Troponin I High Sensitivity 16 ng/L (4-50) OW-Dke-I-Type Natriuretic Peptide 396 pg/mL (0-124) H Total Protein 7.9 g/dL (6.4-8.2) Albumin 3.5 g/dL (3.4-5.0) Albumin/Globulin Ratio 0.8 (1.0-1.7) L Lipase 121 U/L (73-393) Urine Collection Type Unknown Urine Color (Auto) Colorless Urine Turbidity Clear Urine pH (Auto) 6.0 (<5.0-8.0) Urine Specific [place] 1.014 (1.000-1.030) Urine Protein (Auto) Negative mg/dL (Negative) Urine Glucose (Auto)(UA) Negative mg/dL (Negative) Urine Ketones (Auto) Negative mg/dL (Negative) Urine Blood (Auto) Negative (Negative) Urine Nitrite (Auto) Negative (Negative) Urine Bilirubin (Auto) Negative (Negative) Urine Urobilinogen (Auto) Normal mg/dL (Normal) Urine Leukocyte Esterase (Auto) Negative (Negative) Urine RBC 3-5 /HPF (0-2) Urine WBC 1-4 /HPF (0-4) Urine Squamous Epithelial Cells Few /LPF Urine Transitional Epithelial Cells Occ /LPF Urine Renal Epithelial Cells Occ /LPF Urine Bacteria 0 /HPF (0-FEW) Urine Mucus Slight /LPF Urine Opiates Screen Pos (NEG) Urine Methadone Screen Neg (NEG) Urine Barbiturates Neg (NEG) Urine Phencyclidine Screen Neg (NEG) Urine Amphetamine/Methamphetamine Neg (NEG) Urine Benzodiazepines Screen Neg (NEG) Urine Cocaine Screen Neg (NEG) Urine Cannabinoids Screen Neg (NEG) Urine Ethyl Alcohol Neg (NEG) Laboratory Tests 12/30/21 12:45 Laboratory Tests 12/30/21 12:45 Vital Signs: Vital Signs Date Time Temp Pulse Resp B/P (MAP) Pulse Ox O2 Delivery O2 Flow Rate FiO2 12/30/21 13:43 98 12/30/21 12:34 98.0 95 20 130/85 (100) 98.0 EKG: EKG: [] Radiology/Procedures: Radiology/Procedures: [] Course & Med Decision Making: Course & Med Decision Making Pertinent Labs and Imaging studies reviewed. (See chart for details) Additional Social History: PMD from non-affiliated facility. Patient Lives at home. Family History: Non-pertinent to today's complaint. Nursing Notes Reviewed Previous Medical Records requested via [facility] Web: Reviewed by me. EMERGENT LABS AND DIAGNOSTIC STUDIES: Results were reviewed and interpreted by me as below CBC: Shows no evidence of leukocytosis or anemia. Platelet count is normal Chemistry: Shows no electrolyte abnormalities Otherwise within normal limits, unremarkable or as noted above. 12-lead EKG Interpretation by Olaf Mendez MD: Normal Sinus Rhythm at 95 beats per minute Normal axis Normal intervals No ectopy No PVC No other acute ST or T wave abnormalities Overall impression is normal EKG Chest X-ray was interpreted by Radiology, also reviewed by myself. PROCEDURE: PORTABLE CHEST 1V FINDINGS/ IMPRESSION: The aorta is calcified. The cardiac silhouette and pulmonary vasculature are within normal limits. There is no focal consolidation, pleural effusion or pneumothorax. The visualized osseous structures are intact. EMERGENCY DEPARTMENT COURSE/ MEDICAL DECISION MAKING: The patient was placed on a bus driver/monitor, continuous pulse oximetry and was given supplemental oxygen. I examined the patient, evaluated and addressed patient's chief complaint. Possibly gastroparesis related pain. Very low suspicion for dissection, ruptured AAA given normal vitals, well appearing. r/o ACS, pneumonia, pneumothorax. Unlikely PE given normal vitals, no tachypena/hypoxia or SOB. The patient was treated with morphine. Slight elevated Cr which is baseline as well as her BNP. trop negx 2. EKG wnl. chest xary unremarakble. Pending second troponin. Notified [facility] Clerk's office Dr. Almodovar and spoke with PA who sta claudine patient can follow up with them on January 11 at 2:15 PM On re-assessment, patient feels much better. The patient understands that todays Emergency Department evaluation does not represent a comprehensive medical workup, and it is impossible to diagnose all possible illnesses from a single Emergency Department visit. The patient verbalized understanding that it is absolutely necessary to have follow-up with regular primary care physician within 1-2 days for more detailed workup and continued exam. I explained the findings and plan to the patient, who expressed verbal understanding and agreed with plan for discharge and follow up. The patient was given after care instructions and welcomed to return to the ED for re-evaluation in 8-12 hours, especially for any new or worsening symptoms. Patient's blood pressure was elevated (>120/80) but appears stable without evidence of end organ damage, malignant hypertension, hypertensive emergency or urgency. The patient was counseled about the risks of hypertension and urged to pursue outpatient monitoring and therapy within a week with their primary care physician. The patient was stable at the time of discharge. DIAGNOSTIC IMPRESSION: 1. Chest pain DISPOSITION: Disposition: Discharge Home. Condition: Improved Follow-Up: PMD, cardiology Prescriptions: Lidocaine patch Return to the Emergency Department for new or worsening symptoms. Dragon Disclaimer: Dragon Disclaimer: This electronic medical record was generated, in whole or in part, using a voice recognition dictation system. Departure Departure Impression: Primary Impression: Chest pain Disposition: 01 HOME / SELF CARE / HOMELESS Condition: STABLE Referrals: INGRIS FAYE (PCP) Scripts Lidocaine (Lidocaine PATCH ) 1 Each Adh..patch 1 EACH TP DAILY for FOR LOCAL PAIN, #20 PATCH REMOVE AFTER 12 HOURS Prov: CHAVA MENDEZ MD 12/30/21 CHAVA MENDEZ MD December 30, 2021 15:56
[2021-12-30 17:00] VITALS: BP 126/74
--- NOTE | 2022-01-01 01:46 | EKG ---
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
== END | disposition home or self-care (01) ==
LOC: ER 12:22
DX: R07.89 Other chest pain (principal); G43.909 Migraine, unspecified, not intractable, without status migrainosus
CPT/HCPCS: 36415; 71045; 80053; 80076; 80307; 81001; 83690; 83880; 84484; 85025; 85610; 93005; 96374; 99284; J2270